=== PATIENT | male | born 1950 | race Caucasian/White ===

== ENCOUNTER 2019-11-23 11:00 | Outpatient (CLI) | payer MEDICARE, SELFPAY ==
--- NOTE | ~2019-11-23 | XR_ITS ---
EXAMINATION: XR hand LT min 3V DATE: 11/23/2019 11:21 INDICATION: Left hand injury. TECHNIQUE: 3 views of left hand were obtained. COMPARISON: None. FINDINGS: Bone alignment is normal. No fracture. There is mild osteoarthritis of triscaphe joint, fir st carpometacarpal joint, second metacarpophalangeal joints, and most of the interphalangeal joints. There is moderate osteoarthritis of third metacarpophalangeal joint, first interphalangeal joint, and second and third distal interphalangeal joints. IMPRESSION: 1. Polyarticular osteoarthritis. Reviewed, dictated and finalized at location A.
== END 2019-11-23 11:01 | disposition home or self-care (01) ==
LOC: ANHIMG 11:05
PROVIDERS: PCP Family Medicine; Visit Provider Family Medicine
DX: S69.92XA Unspecified injury of left wrist, hand and finger(s), initial encounter (principal); M19.042 Primary osteoarthritis, left hand
CPT/HCPCS: 73130

== ENCOUNTER 2020-01-15 10:37 | Emergency (ER) | payer MEDICARE, SELFPAY ==
--- NOTE | ~2020-01-15 | XR_ITS ---
EXAMINATION: XR lumbar spine min 4V EXAM DATE: 01/15/2020 11:15 INDICATION: Low back, right hip pain. Sciatica. TECHNIQUE: Lumber spine frontal, lateral, bilateral oblique projections. Coned down frontal and lat eral L5-S1 lumbar projections for interpretation. There is no prior study for comparison. FINDINGS: There is mild to moderate lumbar levoscoliosis. There is moderate to severe disc disease at L3-4, moderate at L4-5, mild to moderate at the other thoracolumbar levels. Mild diffuse loss of seth tebral body heights. The vertebral bodies are aligned in the AP dimension. Moderate lumbar facet arth ropathy. No spondylolysis suspected. Mild abdominal aortic arteriosclerosis. Anchors from anterior ab dominal wall mesh, hernia repair. IMPRESSION: 1. Mild to moderate lumbar levoscoliosis. 2. Overall moderate lumbar spondylosis. Reviewed, dictated and finalized at location B.
[2020-01-15 10:40] VITALS: BP 166/69; PULSE 101; RESP 19; TEMP 36.9; O2SAT 99
--- NOTE | 2020-01-15 10:45 | ED.GENADULT ---
HPI - General Adult General Chief complaint: Back Pain/Injury Stated complaint: THINK I HAVE A BULGING DISK Time Seen by Provider: 01/15/20 10:42 Source: patient Mode of arrival: ambulatory Limitations: no limitations History of Present Illness HPI narrative: 69-year-old male patient presents to the [facility] with complaints of right-sided low back pain that radiates to the right hip. Patient states he thinks it might be his sciatic nerve flaring up. Patient states he has had issues with this before. Patient states that about 20 years ago he did have back surgery due to a ruptured disc. Patient states that he had issues with his sciatic nerve about a year ago and did physical therapy and it did get better with time. Patient states that this time it started about a week to 10 days ago but has gotten increasingly worse the past couple of days. Patient states it did get increasingly worse after he stained his deck on . Patient states he does get relief when laying flat. Patient states he has been taking Tylenol for the pain. Patient states that the pain does radiate down to the middle of the anterior thigh but denies any numbness or tingling down bilateral legs. Patient denies any loss of bowel or bladder control. Patient denies any injury or fall recently. Related Data Allergies Allergy/AdvReac Type Severity Reaction Status Date / Time No Known Allergies Allergy Verified 01/15/20 10:46 Review of Systems Review of Systems: Narrative: CONSTITUTIONAL: Denies fever, chills, or sweats. EYES: Denies visual changes, redness, or discharge. ENT: Denies rhinorrhea, congestion, sore throat, or otalgia. CARDIOVASCULAR: Denies chest pain, palpitations, or edema. RESPIRATORY: Denies cough or dyspnea. GASTROINTESTINAL: Denies abdominal pain, nausea, vomiting, or diarrhea. GENITOURINARY: Denies dysuria or hematuria. SKIN: Denies rash or itching. MUSCULOSKELETAL: Positive right side of low back pain, denies joint pain, or myalgia. NEUROLOGIC: Denies headache, numbness, or weakness. PSYCHIATRIC: Denies anxiety or depression. [facility] Past Medical History Medical History (Updated 01/15/20 @ 11:55 by FABIOLA Pathak) Hypertension Type 2 diabetes mellitus Family History Family History Grandparent Diabetes mellitus Sibling Diabetes mellitus Mother Family history of malignant neoplasm Social History Social History Smoking status: Current every day smoker Second hand tobacco smoke exposure: Yes Alcohol intake: current Gender identity (if verbalized by the patient): Male Comments At the time of my signature I agree with nursing past medical history, surgical, social, and family history. There is no relevant family history pertinent to the presenting complaint. Exam Narrative: Exam Narrative: GENERAL: Well-appearing, well-nourished, and in no acute distress. HEAD: Normocephalic, atraumatic. EYES: PERRLA and EOMI. ENT: Nares clear, no rhinorrhea or epistaxis. Mucous membranes moist. NECK: Supple. No lymphadenopathy CHEST: Clear to auscultation. No respiratory distress. HEART: Regular rate and rhythm. No murmur heard. Normal peripheral pulses. ABDOMEN: Soft, nontender, nondistended, normal active bowel sounds. EXTREMITIES: Normal range of motion. No edema. BACK: Patient is able to ambulated without assistance. Pt is lying on the stretcher in no obvouis distress. No surface trauma noted. No muscle tenderness to Palpation. No spasm or mass. No step-offs or deformity noted to the cervical, thoracic or lumbar spine to firm Palpation at the midline. No CVA tenderness to percussion. No saddle anesthesia. Patient does have pain noted on palpation to the center of the right buttock. ROM: able to stand erect. Normal flexion, pain with extension, no pain with lateral bending and rotation to the left side but does have pain
[2020-01-15] MEDS: KETOROLAC (*BKC) 60 MG/2 ML VIAL IM (11:16)
[2020-01-15 11:41] LABS: Add Urine Microscopic? YES; Amorphous Sediment Urine Few; Appearance Urine Cloudy (Clear); Bilirubin Urine Negative (Negative); Blood Urine Negative (Negative); Color Urine Yellow (Yellow); Glucose Urine UA Negative (Negative); Ketones Urine Negative (Negative); Leukocyte Esterase Ur Negative LEU/UL (Negative); Mucus Urine Rare /lpf; Nitrate Urine Negative (Negative); Protein Urine 1+ mg/dL (Negative); RBC Urine 0-2 /hpf (0-2); Specific Grav Ur 1.016 (1.001-1.035); Urobilinogen Urine Negative mg/dL (<2.0)
[2020-01-15 11:41] LABS: Glucose 166 mg/dL (75-110)
== END 2020-01-15 12:08 | disposition home or self-care (01) ==
PROVIDERS: Emergency Provider Nurse Practitioner Family; PCP Family Medicine
DX: M54.41 Lumbago with sciatica, right side (principal); M54.16 Radiculopathy, lumbar region; I10 Essential (primary) hypertension; E11.9 Type 2 diabetes mellitus without complications; F17.200 Nicotine dependence, unspecified, uncomplicated; Z79.84 Long term (current) use of oral hypoglycemic drugs; Z79.82 Long term (current) use of aspirin
CPT/HCPCS: 36415; 72110; 81001; 82947; 96372; 99283; J1885

== ENCOUNTER 2021-07-16 10:30 | Outpatient (CLI) | payer MEDICARE, SELFPAY ==
--- NOTE | ~2021-07-16 | CT_ITS ---
EXAMINATION: CT abdomen pelvis wo/w con DATE: 07/16/2021 11:13 INDICATION: Gross hematuria TECHNIQUE: Computed tomography (CT) of the abdomen and pelvis was performed without and subsequently with 130 cc Omnipaque 350 intravenous contrast. Automated exposure control and iterative reconstructi on technique were employed. Exam dose: 2321.62 mGy-cm total exam DLP. COMPARISON: 07/16/2021 KUB 08/17/2019 bilateral renal ultrasound examination FINDINGS: The lung bases are clear of infiltrate or consolidation. Normal heart size. No pericardial or pleural effusion. Small sliding hiatal hernia. No hepatic space-occupying mass lesion. The gallbladder is unremarkable. No bile duct dilatation. No splenic or pancreatic mass lesion or pancreatic calcification or ductal dilatation. The adrenal glands are unremarkable. There are numerous cysts scattered throughout both kidneys, measuring up to 2.1 cm on the right and l eft. Multiple scattered bilateral nonobstructing renal calcifications are noted, largest measuring up to 1 0 mm on the left., 7 mm on the right. No ureteral calculus or hydroureteronephrosis. There is a 3.5 x 4.7 cm mass along the left posterolateral wall of the urinary bladder situated just anterior to the left ureterovesical junction, with peripheral calcification. This is very suspicious for urothelial malignancy. There is moderate diffuse bladder wall thickening otherwise. Prostate enlargement and calcifications. There is atherosclerotic calcification but normal caliber of the abdominal aorta and iliac and femora l arteries. No intraperitoneal or retroperitoneal or pelvic mass lesion or adenopathy or ascites. Small sliding hiatal hernia. Normal appendix. Mild colonic diverticulosis; no CT evidence of diverticulitis. Multilevel severe degenerative disc disease of the lumbar spine, particularly severe at L2-3, L3-4 an d L4-5. There is associated mild retrolisthesis at L4-5. There is prominent degenerative change at th e apophyseal joints as well. Degenerative changes of the lower thoracic spine. No suspicious osteolytic or osteoblastic lesions are noted. 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 Fuller telephoned the report on 07/16/2021 at 1137 hours to [place] at [phone]. Reviewed, dictated and finalized at Location A. Reviewed, dictated and finalized at location B. 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 Fuller telephoned the report on 07/16/2021 at 1137 hours to [place] at [phone].
--- NOTE | ~2021-07-16 | XR_ITS ---
XR abdomen/kub 1V 07/16/2021 10:44 Indication: Gross hematuria Procedure: KUB Comparison: Ultrasound dated 08/17/2019 Findings: There are multiple bilateral renal stones, largest in the left kidney measuring [address] dimension. Bowel gas pattern nonobstructive. There are are surgical changes consistent with ventra l hernia repair. There is advanced lumbar spondylosis with levoscoliosis. There are coarse prostate c alcifications. There are curvilinear calcifications in the left pelvis of uncertain etiology. Correla te with CT. Impression: 1: Bilateral nephrolithiasis. Reviewed, dictated and finalized at location A. [employer] OFFICE DISPATCHER Impression: 1: Bilateral nephrolithiasis.
[2021-07-16 10:58] LABS: Estimated Glomerular Filt Rate > 60
== END 2021-07-16 10:31 | disposition home or self-care (01) ==
LOC: ANHIMG 10:34
PROVIDERS: PCP Family Medicine; Visit Provider Nurse Practitioner Adult Health
DX: R31.0 Gross hematuria (principal); K44.9 Diaphragmatic hernia without obstruction or gangrene; N20.0 Calculus of kidney; N40.0 Benign prostatic hyperplasia without lower urinary tract symptoms; K57.30 Diverticulosis of large intestine without perforation or abscess without bleeding; K76.9 Liver disease, unspecified; M47.816 Spondylosis without myelopathy or radiculopathy, lumbar region; M41.9 Scoliosis, unspecified
CPT/HCPCS: 74018; 74178; Q9967

== ENCOUNTER 2021-08-01 02:10 | Day surgery (SDC) | payer MEDICARE, SELFPAY ==
[2021-07-14 13:28] VITALS: BMI 31.3
--- NOTE | 2021-08-01 08:03 | WPDANESEPPF ---
Anes - Initial Pre Proc Eval Procedure: Operation Date: 08/01/21 10:45 Proposed Procedures p Screening Colonoscopy - Freddy Molina MD Date/Time: 08/01/21 08:03 Surgeon: Freddy Molina MD Pre Op Diagnosis: neoplasm screening Patient Data Age: 70 Gender: M Height: 1.78 m Weight: 99 kg Allergies Allergy/AdvReac Type Severity Reaction Status Date / Time No Known Allergies Allergy Verified 08/01/21 09:42 Home Medications Medication Instructions Recorded Confirmed Type aspirin 325 mg tablet 325 mg PO DAILY #1 tablet 05/31/19 08/01/21 Rx blood sugar diagnostic #10 each 05/31/19 08/01/21 Rx magnesium 250 mg tablet 250 mg PO DAILY #1 tablet 05/31/19 08/01/21 Rx acetaminophen 1,000 mg PO Q6H PRN #60 cap 01/15/20 08/01/21 Rx blood sugar diagnostic #100 each 02/21/20 08/01/21 Rx sildenafil 100 mg tablet 100 mg PO DAILY PRN #10 tablet 05/01/21 08/01/21 Rx amlodipine 10 mg tablet 10 mg PO DAILY #90 tablet 06/13/21 08/01/21 Rx atorvastatin 80 mg tablet See Rx Instructions .ROUTE 06/13/21 08/01/21 Rx .COMPLEX #90 tablet ezetimibe 10 mg tablet See Rx Instructions .ROUTE 06/13/21 08/01/21 Rx .COMPLEX #90 tablet glimepiride 2 mg tablet See Rx Instructions .ROUTE 06/13/21 08/01/21 Rx .COMPLEX #90 tablet lisinopril 40 mg tablet 40 mg PO DAILY #90 tablet 06/13/21 08/01/21 Rx metformin 500 mg tablet,extended See Rx Instructions .ROUTE 06/13/21 08/01/21 Rx release 24 hr .COMPLEX #180 tablet topiramate 50 mg tablet 50 mg PO BID #180 tablet 06/13/21 08/01/21 Rx Patient hx anesthesia problems: none Family hx anesthesia problems: none Results Review: All pre-operative results and documents have been reviewed as part of the pre-operative evaluation. [facility] Past Medical History Medical History (Updated 08/01/21 @ 08:04 by Angel Zavala DO) Hyperlipidemia LDL goal <70 Hypertension RICHARD (obstructive sleep apnea) PTSD (post-traumatic stress disorder) Type 2 diabetes mellitus Family History Family History Grandparent Diabetes mellitus Sibling Diabetes mellitus Mother Family history of malignant neoplasm Social History Social History Smoking packs per day: 1 Smoking cigarettes per day: 20.0 Years smoked: 40 Smoking pack-years: 40.00 Smoking status: Current every day smoker Tobacco type: cigarettes Second hand tobacco smoke exposure: Yes Alcohol intake: current Drinks per week: 2 Alcohol use details: rare Substance use: current Substance use type: marijuana Other substance usage details: 1-2 times per month Living arrangements: with family Gender identity (if verbalized by the patient): Male Spiritual care concerns: No Anes - Eval Final PreProcedure Day of Procedure 08/01/21 08:03 Patient weight: obese Heart: regular rate and rhythm Lungs: clear to auscultation and normal air movement Airway: Mallampati scale class II Neurological: alert and oriented Last oral intake: >/= 8 hours ASA classification: III Emergent: no Anesthetic plan: proceed Anesthesia type and monitoring: general GIVS and standard monitoring Results Review: All pre-operative results and documents have been reviewed as part of the pre-operative evaluation. Informed Consent: The patient's anesthetic plan and its attendant risks and benefits were discussed with the patient/family/POA. Questions were solicited and answers provided to the satisfaction of the patient/family/POA.
[2021-08-01 09:46] VITALS: BP 161/93; PULSE 75; RESP 20; TEMP 36.2; O2SAT 97; BMI 31.1
[2021-08-01] MEDS: LACTATED RINGERS 1,000 ML 150 ML IV CONT (09:48)
[2021-08-01 10:00] LABS: Glucose Point of Care 179 mg/dl (65-105)
--- NOTE | 2021-08-01 10:15 | PM.HPGS ---
History of Present Illness History of Present Illness Consent: Risks, benefits, and alternatives have been discussed and questions answered. Patient agrees to proceed with procedure. Chief complaint: neoplasm screening Narrative: Francis Jain is a 70 year old male here for screening colonoscopy, last one over 10 years ago. Review of Systems Constitutional: Constitutional: Denies headache(s) and Denies weakness Eyes: Eyes: Denies blurry vision ENT: Reports Normal hearing present, Denies headache(s) and Denies neck pain Cardiovascular: Cardiovascular: Denies chest pain and Denies dyspnea Respiratory: Respiratory: Denies dyspnea Gastrointestinal: Gastrointestinal: Reports no additional gastrointestinal complaints Genitourinary: Genitourinary: Denies dysuria Musculoskeletal: Musculoskeletal: Denies neck pain Integumentary/Breasts: Skin/Breast: Denies dry skin Neurologic: Reports Normal hearing present, Denies headache(s) and Denies weakness Psychiatric: Psychiatric: Denies anxiety Endocrine: Endocrine: Denies change in body appearance Hematologic/Lymphatic: Hematologic/Lymphatic: Denies easy bleeding Allergic/Immunologic: Allergic/Immunologic: Denies urticaria [facility] Past Medical History Medical History (Updated 08/01/21 @ 08:04 by Angel Zavala DO) Hyperlipidemia LDL goal <70 Hypertension RICHARD (obstructive sleep apnea) PTSD (post-traumatic stress disorder) Type 2 diabetes mellitus Family History Family History Grandparent Diabetes mellitus Sibling Diabetes mellitus Mother Family history of malignant neoplasm Social History Social History Smoking packs per day: 1 Smoking cigarettes per day: 20.0 Years smoked: 40 Smoking pack-years: 40.00 Smoking status: Current every day smoker Tobacco type: cigarettes Second hand tobacco smoke exposure: Yes Alcohol intake: current Drinks per week: 2 Alcohol use details: rare Substance use: current Substance use type: marijuana Other substance usage details: 1-2 times per month Living arrangements: with family Gender identity (if verbalized by the patient): Male Spiritual care concerns: No Meds Home Medications and Allergies Home Medications Medication Instructions Recorded Confirmed Type aspirin 325 mg tablet 325 mg PO DAILY #1 tablet 05/31/19 08/01/21 Rx blood sugar diagnostic #10 each 05/31/19 08/01/21 Rx magnesium 250 mg tablet 250 mg PO DAILY #1 tablet 05/31/19 08/01/21 Rx acetaminophen 1,000 mg PO Q6H PRN #60 cap 01/15/20 08/01/21 Rx blood sugar diagnostic #100 each 02/21/20 08/01/21 Rx sildenafil 100 mg tablet 100 mg PO DAILY PRN #10 tablet 05/01/21 08/01/21 Rx amlodipine 10 mg tablet 10 mg PO DAILY #90 tablet 06/13/21 08/01/21 Rx atorvastatin 80 mg tablet See Rx Instructions .ROUTE 06/13/21 08/01/21 Rx .COMPLEX #90 tablet ezetimibe 10 mg tablet See Rx Instructions .ROUTE 06/13/21 08/01/21 Rx .COMPLEX #90 tablet glimepiride 2 mg tablet See Rx Instructions .ROUTE 06/13/21 08/01/21 Rx .COMPLEX #90 tablet lisinopril 40 mg tablet 40 mg PO DAILY #90 tablet 06/13/21 08/01/21 Rx metformin 500 mg tablet,extended See Rx Instructions .ROUTE 06/13/21 08/01/21 Rx release 24 hr .COMPLEX #180 tablet topiramate 50 mg tablet 50 mg PO BID #180 tablet 06/13/21 08/01/21 Rx Allergies Allergy/AdvReac Type Severity Reaction Status Date / Time No Known Allergies Allergy Verified 08/01/21 09:42 Vital Signs Vital Signs - 24 hr 08/01/21 09:46 Temperature 97.2 F L Pulse Rate 75 Respiratory Rate 20 Blood Pressure 161/93 H Pulse Oximetry 97 Exam Const: General: comfortable and no acute distress HENMT: General nose exam: Normal nares present Eyes: General: appearance normal, both eyes and all related structures Neck: Neck: no JVD Resp: Auscultation: clear to ausculta
[2021-08-01 10:42] VITALS: BP 109/64; PULSE 63; RESP 13; O2SAT 97
[2021-08-01 10:52] VITALS: BP 118/68; PULSE 57; RESP 21; O2SAT 97
[2021-08-01 11:02] VITALS: BP 121/75; PULSE 55; RESP 12; O2SAT 97
== END 2021-08-01 11:14 | disposition home or self-care (01) ==
PROVIDERS: PCP Family Medicine; Visit Provider Internal Medicine Gastroenterology
PROC: 0DJD8ZZ Inspection of Lower Intestinal Tract, Via Natural or Artificial Opening Endoscopic (ICD-10-PCS; CPT 45378; principal; 2021-08-01 10:45)
DX: Z12.11 Encounter for screening for malignant neoplasm of colon (principal); K63.5 Polyp of colon; K57.30 Diverticulosis of large intestine without perforation or abscess without bleeding; K64.8 Other hemorrhoids; I10 Essential (primary) hypertension; E78.5 Hyperlipidemia, unspecified; G47.33 Obstructive sleep apnea (adult) (pediatric); F43.10 Post-traumatic stress disorder, unspecified; E11.9 Type 2 diabetes mellitus without complications; F17.210 Nicotine dependence, cigarettes, uncomplicated; F12.90 Cannabis use, unspecified, uncomplicated; Z79.82 Long term (current) use of aspirin; Z79.84 Long term (current) use of oral hypoglycemic drugs; E66.9 Obesity, unspecified; Z68.31 Body mass index [BMI] 31.0-31.9, adult
CPT/HCPCS: 45385; 82948; 88305; J2704; J7120

== ENCOUNTER 2021-08-11 10:17 | Outpatient (CLI) | payer MEDICARE, SELFPAY ==
--- NOTE | 2021-08-11 | ECG_ITS ---
Measurements Intervals [place] Rate: 73 P: 61 OK: 177 QRS: -21 QRSD: 90 T: 62 QT: 383 QTc: 425 Interpretive Statements SINUS RHYTHM BORDERLINE R WAVE PROGRESSION, ANTERIOR LEADS INFERIOR INFARCT, AGE INDETERMINATE BASELINE ARTIFACT- I, III, AVR, AVL ABNORMAL ECG Electronically Signed On 08-11-2021 10:56:00 [employer]IP[employer]S [employer] by Sav Solano D.O.
[2021-08-11 11:05] LABS: Anion Gap 13 mmol/L (8-16); Blood Urea Nitrogen 21 mg/dL (9-20); Calcium 9.5 mg/dL (8.4-10.2); Carbon Dioxide 21 mmol/L (22-30); Chloride 109 mmol/L (98-107); Estimated Glomerular Filt Rate > 60; Glucose 157 mg/dL (65-110); Potassium 4.2 mmol/L (3.4-5.0); Sodium 143 mmol/L (137-145)
== END 2021-08-11 10:18 | disposition home or self-care (01) ==
LOC: ANHSURGERY 10:20
PROVIDERS: Anesthesiology; PCP Family Medicine; Visit Provider Urology
DX: E11.9 Type 2 diabetes mellitus without complications (principal); I10 Essential (primary) hypertension; Z01.818 Encounter for other preprocedural examination; R94.31 Abnormal electrocardiogram [ECG] [EKG]
CPT/HCPCS: 36415; 80048; 93005

== ENCOUNTER 2021-08-14 01:38 | Day surgery (SDC) | payer MEDICARE, SELFPAY ==
--- NOTE | 2021-08-11 09:31 | PC.NURSE ---
Report to the Outpatient Waiting Room, entrance under the green pavilion located off [facility], at time _0715_ on date _08/14/21__. OR Time: _0915__. - You and your visitor will be asked a series of questions to screen for COVID 19 for your protection. - A mask is required within the hospital. - NO visitors are allowed at this time. Patient visitors will be guided where to wait when not with patient. Preoperative COVID Testing Requirements: No COVID Test needed if: (proof is required; if not received patient will have Rapid Test prior to entry) - Patient has received COVID Vaccine at least 14 days prior to procedure date or - Patient has positive COVID test result within last 90 days of surgery date. COVID Test needed if above criteria is not met If not COVID vaccinated a COVID test must be conducted within 72 hours of surgery and patient is asked to isolate self from time of testing until procedure. You will go to the [facility] for your COVID testing. The [facility] is located at the corner of [address] [facility]. You will only be called if COVID results are positive and your surgeon may reschedule your elective surgery date. Patients may have clear liquids (water, carbonated beverages, clear teas, apple juice) until 3 hours prior to surgery with a maximum of 20 ounces. (0615 AM) - No food from midnight until time of surgery - Infants may have breast milk until 4 hours before surgery, formula 6 hours prior to surgery. - Children will be allowed to drink immediately following surgery. If applicable, please bring a bottle or sippy cup to assist with drinking. Juice, water, soda, and popsicles are readily available. For infants on formula, please bring formula the day of surgery. Pacifiers are allowed. Take the following medications with a SIP of water the morning of surgery: _AMLODIPINE, & TYLENOL IF NEEDED__ Medications to discontinue per DR. ALCOCER - _ASPIRIN - PT STOPPED 08/07/21__ Medications to discontinue per ANESTHESIA - ALL VITAMINS/SUPPLEMENTS - Date to take last dose_08/11/21___ Please no make-up, nail zimbabwean, hairspray, perfume, deodorant, or body powder the day of surgery. No jewelry (including any body piercings) or valuables the day of surgery, leave them at home. Please take a shower or bath the night before, or the morning of, surgery with an antibacterial soap. Wear comfortable, loose fitting clothing. Children are encouraged to wear pajamas. - Jewelry must be removed prior to entering the operating room. Rings and piercings that are not removed may be cut off. - The hospital will not accept responsibility for valuables. - Please leave all valuables, including medications, at home the day of surgery. If you are going home after surgery, a licensed seasonal driver must drive you home. - NO public transportation without another adult. - We recommend that an adult stay with you for 24 hours following discharge. - We also recommend that you do not drive, make important decision, drink alcoholic beverages, or take any drugs that were not prescribed by your health care provider for at least 24 hours after your discharge time. For Pediatric surgeries, we recommend two adults accompany the child home (only one inside the building at this time). Follow any additional instructions given to you from your surgeon. Telephone instructions given to ___PT and asked if any additional questions and then verbalized understanding. Patient advised to call surgeon office or pre surgery nurse liaison [phone] if any additional questions.
[2021-08-11 09:35] VITALS: BMI 31.1
[2021-08-14] VITALS (10 sets, daily range): BP systolic 120–173; BP diastolic 66–92; PULSE 70–96; RESP 16–20; TEMP 36.3–36.6; O2SAT 95–100
--- NOTE | 2021-08-14 07:01 | WPDHPUPDATE1 ---
History and Physical Update Update Date/Time: 08/14/21 07:01 History and Physical has been reviewed, including an updated exam of the patient. There are NO changes in the patient's condition. Risks, benefits, and alternatives have been discussed and questions answered. Patient agrees to proceed with procedure.
[2021-08-14] MEDS: LACTATED RINGERS 1,000 ML 30 ML IV CONT ×2 (08:03→11:15)
[2021-08-14 08:04] LABS: Glucose Point of Care 165 mg/dl (65-105)
--- NOTE | 2021-08-14 08:32 | WPDANESEPPF ---
Anes - Initial Pre Proc Eval Procedure: Operation Date: 08/14/21 09:15 Proposed Procedures p Trans Urethral Resection Large Bladder Tumor with Gemcitabine Instillation - August Bryan MD s Cystoscopy - August Bryan MD Date/Time: 08/14/21 08:32 Surgeon: August Bryan MD Pre Op Diagnosis: Gross Hematuria Patient Data Age: 70 Gender: M Height: 1.78 m Weight: 98.5 kg Last Vital Signs Temp 36.6 C 08/14/21 08:06 Pulse 72 08/14/21 08:06 Resp 20 08/14/21 08:06 BP 126/74 08/14/21 08:06 Pulse Ox 97 08/14/21 08:06 Allergies Allergy/AdvReac Type Severity Reaction Status Date / Time No Known Allergies Allergy Verified 08/14/21 07:45 Home Medications Medication Instructions Recorded Confirmed Type aspirin 325 mg tablet 325 mg PO DAILY #1 tablet 05/31/19 08/14/21 Rx blood sugar diagnostic #10 each 05/31/19 08/14/21 Rx magnesium 250 mg tablet 250 mg PO DAILY #1 tablet 05/31/19 08/14/21 Rx acetaminophen 1,000 mg PO Q6H PRN #60 cap 01/15/20 08/14/21 Rx blood sugar diagnostic #100 each 02/21/20 08/14/21 Rx sildenafil 100 mg tablet 100 mg PO DAILY PRN #10 tablet 05/01/21 08/14/21 Rx amlodipine 10 mg tablet 10 mg PO DAILY #90 tablet 06/13/21 08/14/21 Rx atorvastatin 80 mg tablet See Rx Instructions .ROUTE 06/13/21 08/14/21 Rx .COMPLEX #90 tablet ezetimibe 10 mg tablet See Rx Instructions .ROUTE 06/13/21 08/14/21 Rx .COMPLEX #90 tablet glimepiride 2 mg tablet See Rx Instructions .ROUTE 06/13/21 08/14/21 Rx .COMPLEX #90 tablet lisinopril 40 mg tablet 40 mg PO DAILY #90 tablet 06/13/21 08/14/21 Rx metformin 500 mg tablet,extended See Rx Instructions .ROUTE 06/13/21 08/14/21 Rx release 24 hr .COMPLEX #180 tablet topiramate 50 mg tablet 50 mg PO BID #180 tablet 06/13/21 08/14/21 Rx Laboratory Tests 08/14/21 08:02 POC Capillary Glucose 165 mg/dl H mg/dl (65-105) Patient hx anesthesia problems: none Family hx anesthesia problems: none Results Review: All pre-operative results and documents have been reviewed as part of the pre-operative evaluation. [facility] Past Medical History Medical History (Updated 08/01/21 @ 08:04 by Angel Zavala DO) Hyperlipidemia LDL goal <70 Hypertension RICHARD (obstructive sleep apnea) PTSD (post-traumatic stress disorder) Type 2 diabetes mellitus Family History Family History (Reviewed 06/13/21 @ 10:21 by Jordyn Hollis [facility]) Grandparent Diabetes mellitus Sibling Diabetes mellitus Mother Family history of malignant neoplasm Social History Social History (Reviewed 06/13/21 @ 10:21 by Jordyn Hollis [facility]) Smoking packs per day: 1 Smoking cigarettes per day: 20.0 Years smoked: 40 Smoking pack-years: 40.00 Smoking status: Current every day smoker Tobacco type: cigarettes Second hand tobacco smoke exposure: Yes Alcohol intake: current Drinks per week: 2 Alcohol use details: rare Substance use: current Substance use type: marijuana Other substance usage details: 1-2 times per month Living arrangements: with family Gender identity (if verbalized by the patient): Male Spiritual care concerns: No Anes - Eval Final PreProcedure Day of Procedure 08/14/21 08:32 Patient weight: obese Heart: regular rate and rhythm Lungs: clear to auscultation and normal air movement Airway: Mallampati scale class II Neurological: alert and oriented Last oral intake: >/= 8 hours ASA classification: III Emergent: no Anesthetic plan: proceed Anesthesia type and monitoring: general LMA Results Review: All pre-operative results and documents have been reviewed as part of the pre-operative evaluation. Informed Consent: The patient's anesthetic plan and its attendant risks and benefits were discussed with the patient/family/POA. Questions were solicited and answers provided to the satisfaction of the patient/family/POA.
[2021-08-14] MEDS: ceFAZolin 2 GM/D5W 50 ML 2 GM/50 ML BAG IVPB (09:25)
--- NOTE | 2021-08-14 10:46 | W.PM.PROC2 ---
Procedure Note - Detailed Date of Procedure 08/14/21 Pre-op Diagnosis Bladder cancer Post-op Diagnosis same Procedure Performed 1. TURBT ( large, 78 cm) 2. Bladder biopsy Surgeon August Bryan MD Anesthesia general Findings Large neoplasm involving the left posterior lateral bladder wall just above the left ureteral orifice Description of Procedure Patient brought out suite was prepped draped in routine sterile fashion while in dorsal lithotomy position after the uneventful induction of a general anesthetic. A 24 F resectoscope was placed in the bladder. His large neoplasm in the left posterior lateral bladder wall. Resected in its entirety. I took separate specimens from the bladder tumor base to look for evidence of pathological muscle invasion. Base periphery were cauterized. This neoplasm arose just above left ureteral orifice. I was able to identify and preserve the left ureteral orifice throughout. Some slight hyperemia in the dome so I took a separate biopsy from that site cauterized the bases well. Resectoscope was removed after evacuating all chips. An 18F urethral catheter was placed to drainage. Estimated Blood Loss 10 Drains Yes Packing No Pathology yes Complications No immediate complications Condition stable Disposition PACU
--- NOTE | 2021-08-14 10:49 | W.PM.PROC2 ---
Procedure Note - Detailed Date of Procedure 08/14/21 Pre-op Diagnosis Bladder cancer Post-op Diagnosis same Procedure Performed Gemcitabine installation Surgeon August Bryan MD Anesthesia none Description of Procedure With the patient in the supine position, a 16F Peters catheter is placed using sterile technique. Using a protective facemask, gown and double layer of gloves Gemcitabine 2gm in 100cc saline is administered through the catheter/into the bladder. The catheter is then plugged. Patient was instructed to lie supine x20min, then to roll both the left and right x20 min. each. Total dwell time will be 60 min., after which the bladder will be drained and catheter removed. Estimated Blood Loss 10 Drains Yes Packing No Pathology none sent Complications No immediate complications Condition stable Disposition PACU
[2021-08-14] MEDS: SODIUM CHLORIDE 0.9% IV 23.7 ML, GEMCITABINE HCL 1,000 MG BLADDER ×2 (10:57→10:58)
--- NOTE | 2021-08-14 11:06 | SUR.PHASEI ---
1055; DR ALCOCER IN PACU, INSTILLED GEMCITABINE AND HE CLAMPED DANIEL. PT LAYING ON BACK FOR 20 MIN
[2021-08-14 11:26] LABS: Glucose Point of Care 151 mg/dl (65-105)
--- NOTE | 2021-08-14 11:28 | SUR.PHASEI ---
1121; PT TURNED ONTO LT SIDE FOR 20MIN. C/O URGE TO VOID. DENIES PAIN. DANIEL REMAINS CLAMPED
--- NOTE | 2021-08-14 11:44 | SUR.PHASEI ---
1140; TURNED TO RT SIDE FOR 20MIN
--- NOTE | 2021-08-14 11:46 | SUR.PHASEI ---
REPORT GIVEN TO JOY RIOS
== END 2021-08-14 13:10 | disposition home or self-care (01) ==
PROVIDERS: PCP Family Medicine; Visit Provider Urology
PROC: 0TBB8ZZ Excision of Bladder, Via Natural or Artificial Opening Endoscopic (ICD-10-PCS; CPT 52240; principal; 2021-08-14 09:15)
PROC: 0TBB8ZX Excision of Bladder, Via Natural or Artificial Opening Endoscopic, Diagnostic (ICD-10-PCS; CPT 52204; 2021-08-14 09:15)
DX: C67.8 Malignant neoplasm of overlapping sites of bladder (principal); N30.21 Other chronic cystitis with hematuria; E78.5 Hyperlipidemia, unspecified; I10 Essential (primary) hypertension; E11.9 Type 2 diabetes mellitus without complications; G47.33 Obstructive sleep apnea (adult) (pediatric); F43.10 Post-traumatic stress disorder, unspecified; F17.210 Nicotine dependence, cigarettes, uncomplicated; F12.90 Cannabis use, unspecified, uncomplicated; E66.9 Obesity, unspecified; Z68.31 Body mass index [BMI] 31.0-31.9, adult; Z79.84 Long term (current) use of oral hypoglycemic drugs; Z79.82 Long term (current) use of aspirin
CPT/HCPCS: 52240; 51720; 82948; 88305; A9270; J0690; J1100; J2405; J2704; J3010; J7120; J9201

== ENCOUNTER 2022-06-30 14:46 | Outpatient (CLI) | payer MEDICARE, SELFPAY ==
--- NOTE | ~2022-06-30 | CT_ITS ---
EXAMINATION: CT brain wo con DATE: 06/30/2022 15:03 INDICATION: Migraines. Headache. TECHNIQUE: Computed tomography (CT) of the head was performed without intravenous contrast. The dose- length product was 605.33 mGy-cm. Automated exposure control and iterative reconstruction technique w ere employed. COMPARISON: No prior studies for comparison. FINDINGS: There is a small chronic right frontal lobe infarction. No ventriculomegaly or midline shif t. No acute infarction, hemorrhage, mass or mass effect. Basilar cisterns are patent. There is intrac ranial atherosclerosis. Paranasal sinuses and mastoids are pneumatized. No depressed skull fractures. IMPRESSION: 1. No acute intracranial abnormality. 2: Chronic right frontal lobe infarction. Reviewed, dictated and finalized at location A. RMATION SYSTEMS DIRECTOR
--- NOTE | ~2022-06-30 | XR_ITS ---
XR cervical spine 4-5V DATE: 06/30/2022 15:08 INDICATION: Right neck pain, tenderness. Migraine headache. TECHNIQUE: AP, open-mouth, lateral and swimmer views COMPARISON: None FINDINGS: There is diffuse osteopenia. There is mild levoscoliosis of cervical and upper thoracic spine. C1 and C2 are normally aligned and the odontoid process is intact. No fracture or dislocation or lock ed facet is detected. No prevertebral soft tissue swelling. Degenerative disc disease is suggested at C6-7. Remaining cervical interspaces are relatively preserv ed. IMPRESSION: Osteopenia Mild cervical-thoracic levoscoliosis Degenerative disc disease at C6-7 Reviewed, dictated and finalized at location B. ICAL SCIENCES PROFESSOR
== END 2022-06-30 14:47 | disposition home or self-care (01) ==
PROVIDERS: PCP Family Medicine; Visit Provider Physician Assistant
DX: G43.909 Migraine, unspecified, not intractable, without status migrainosus (principal); M85.88 Other specified disorders of bone density and structure, other site; M41.9 Scoliosis, unspecified; M50.323 Other cervical disc degeneration at C6-C7 level
CPT/HCPCS: 70450; 72050

== ENCOUNTER 2023-03-08 09:46 | Outpatient (CLI) | payer MEDICARE, SELFPAY ==
[2023-03-08 10:09] LABS: Basophils Absolute Auto 0.1 K/mm3 (0.0-0.1); Basophils Percent Auto 1.2 % (0.2-1.2); Eosinophils Absolute Auto 0.3 K/mm3 (0-0.3); Eosinophils Percent Auto 4.1 % (0-4.4); Hematocrit 47.8 % (42.0-52.0); Hemoglobin 16.2 g/dL (14.0-18.0); Immature Granulocyte Absolute 0.02 K/mm3 (0.00-0.031); Immature Granulocyte Percent A 0.3 % (0-0.5); Lymphocytes Absolute Auto 2.01 K/mm3 (0.9-3.2); Lymphocytes Percent Auto 25.8 % (18.3-44.2); Mean Corpuscular HGB Conc 33.9 g/dl (32-36); Mean Corpuscular Hemoglobin 30.6 pg (26-34); Mean Corpuscular Volume 90.2 fl (80-100); Mean Platelet Volume 8.6 fl (7.4-10.4); Monocytes Absolute Auto 0.4 K/mm3 (0.1-0.6); Monocytes Percent Auto 5.5 % (2.6-8.5); Neutrophils Absolute Auto 4.9 K/mm3 (1.3-6.7); Neutrophils Percent Auto 63.1 % (45.5-73.1); Platelet Count Result 164 k/mm3 (150-375); Red Cell Distribution Width 13.6 % (11.5-14.5); White Blood Count 7.8 K/mm3 (4.5-10.0)
[2023-03-08 10:15] LABS: Blood Urea Nitrogen 17 mg/dL (8-26); Carbon Dioxide 21 mmol/L (22-30); Chloride 107 mmol/L (98-109); Estimated Glomerular Filt Rate > 60; Glucose 133 mg/dL (70-105); Ionized Calcium (POC) 1.21 mmol/L (1.11-1.31); Potassium 3.7 mmol/L (3.5-4.9); Sodium 144 mmol/L (138-146)
[2023-03-08 10:33] LABS: Alanine Aminotransferase 28 U/L (6-50); Albumin Level 4.5 g/dL (3.5-5.1); Alkaline Phosphatase 88 U/L (38-126); Anion Gap 10 mmol/L (8-16); Aspartate Amino Transferase 33 U/L (17-59); Bilirubin,Total 0.6 mg/dL (0.2-1.3); Blood Urea Nitrogen 16 mg/dL (9-20); Calcium 9.1 mg/dL (8.4-10.2); Carbon Dioxide 23 mmol/L (22-30); Chloride 109 mmol/L (98-107); Estimated Glomerular Filt Rate > 60; Glucose 133 mg/dL (65-110); Potassium 3.7 mmol/L (3.4-5.0); Sodium 142 mmol/L (137-145)
== END 2023-03-08 09:47 | disposition home or self-care (01) ==
LOC: ANHLAB 09:50
PROVIDERS: PCP Family Medicine; Visit Provider Internal Medicine Hematology & Oncology
DX: D47.2 Monoclonal gammopathy (principal)
CPT/HCPCS: 36415; 80047; 80053; 85025

== ENCOUNTER 2023-05-24 08:23 | Outpatient (CLI) | payer MEDICARE, SELFPAY ==
--- NOTE | 2023-05-24 08:35 | ECG_ITS ---
Measurements Intervals [place] Rate: 53 P: 61 WI: 181 QRS: -28 QRSD: 106 T: 46 QT: 421 QTc: 397 Interpretive Statements SINUS BRADYCARDIA WITH MARKED SINUS ARRHYTHMIA BORDERLINE LEFT AXIS DEVIATION [QRS AXIS < -20] INFERIOR INFARCTION ABNORMAL ECG COMPARED TO ECG 08/11/2021 10:41:30 SINUS BRADYCARDIA NOW PRESENT SINUS ARRHYTHMIA NOW PRESENT Electronically Signed On 05-24-2023 8:52:47 CDT by Dorian Christopher M.D.
== END 2023-05-24 08:24 | disposition home or self-care (01) ==
PROVIDERS: PCP Family Medicine; Visit Provider Urology
DX: I10 Essential (primary) hypertension (principal); Z01.818 Encounter for other preprocedural examination; R94.31 Abnormal electrocardiogram [ECG] [EKG]
CPT/HCPCS: 93005

== ENCOUNTER 2023-05-27 02:05 | Day surgery (SDC) | payer MEDICARE, SELFPAY ==
[2023-05-21 11:22] VITALS: BMI 31.6
--- NOTE | 2023-05-21 11:24 | PC.NURSE ---
Report to the Outpatient Waiting Room, entrance under the green pavilion located off [facility], at time ___0815____ on date _05/27/23 . Planned Procedure Time: _1015 . Time changes happen often and if your time is changed the preop area will call you the afternoon before. - You and your visitor will be asked to self-screen and do not enter if you have any COVID symptoms. - A mask is optional within the hospital at this time. Patients may have clear liquids (water, carbonated beverages, clear teas, apple juice) until 3 hours prior to surgery with a maximum of 20 ounces. - No food from midnight until time of surgery - Infants may have breast milk until 4 hours before surgery, formula 6 hours prior to surgery. - Children will be allowed to drink immediately following surgery. If applicable, please bring a bottle or sippy cup to assist with drinking. Juice, water, soda, and popsicles are readily available. For infants on formula, please bring formula the day of surgery. Pacifiers are allowed. Take the following medications with a SIP of water the morning of surgery: ___NONE DO NOT STOP ANY OF YOUR OTHER PRESCRIPTION MEDICATIONS PRIOR TO SURGERY ?EXCEPT THE FOLLOWING Medications to discontinue per physician ___ALL VITAMINS AND SUPPLEMENTS 3 DAYS PRE OP.LAST DOSE 05/23/23 Please no make-up, nail indian, hairspray, perfume, deodorant, or body powder the day of surgery. No jewelry (including any body piercings) or valuables the day of surgery, leave them at home. Please take a shower or bath the night before, or the morning of, surgery with an antibacterial soap. Wear comfortable, loose fitting clothing. Children are encouraged to wear pajamas. - Jewelry must be removed prior to entering the operating room. Rings and piercings that are not removed may be cut off. - The hospital will not accept responsibility for valuables. - Please leave all valuables, including medications, at home the day of surgery. If you are going home after surgery, a licensed chair car driver must drive you home. - NO public transportation without another adult if you receive anesthesia. - We recommend that an adult stay with you for 24 hours following discharge. - We also recommend that you do not drive, make important decision, drink alcoholic beverages, or take any drugs that were not prescribed by your health care provider for at least 24 hours after your discharge time. For Pediatric surgeries, we recommend two adults accompany the child home. Follow any additional instructions given to you from your surgeon. If you or anyone in your household have experienced Covid symptoms in the past week, please notify your surgeon or the nurse liaison at the phone number below for possible testing. Telephone instructions given to ___PATIENT and asked if any additional questions and then verbalized understanding. Patient advised to call surgeon office or pre surgery nurse liaison [phone] if any additional questions.
[2023-05-27] VITALS (9 sets, daily range): BP systolic 116–142; BP diastolic 47–79; PULSE 58–75; RESP 12–20; TEMP 36.2; O2SAT 94–100
--- NOTE | ~2023-05-27 | XR_ITS ---
EXAMINATION: XR retrograde pyelogram BI DATE: 05/27/2023 10:24 INDICATION: Bilateral retrograde pyelograms TECHNIQUE: A total of 84 fluoroscopic images of the abdomen and pelvis were obtained during procedure performed by Dr. Bryan. Radiologist was not present for the imaging or procedure. The amount of flu oroscopy time used during this procedure was 0.4 minutes. COMPARISON: CT abdomen and pelvis dated 07/16/2021 FINDINGS: Radius Grinder images demonstrate multiple metallic coils for a prior ventral hernia mesh repair projecting ov er the central lower abdomen. Again seen is a large renal stone projecting over a middle pole calyx o f the left kidney. There is a smaller stone in an inferior calyx of the left kidney. Subsequent image s demonstrate cannulation and retrograde contrast injection into first the left ureter and renal rashi ecting system and subsequently the right ureter and renal collecting system both of which appeared no rmal in caliber with no hydronephrosis. No strictures or urothelial irregularities identified. IMPRESSION: 1. Left nephrolithiasis. 2. Normal bilateral retrograde pyelograms with no hydronephrosis, strictures or urothelial irregulari ties. See procedure note for further detail. Reviewed, dictated and finalized at location A. IMPRESSION: 1. Left nephrolithiasis. 2. Normal bilateral retrograde pyelograms with no hydronephrosis, strictures or urothelial irregularities. See procedure note for further detail.
--- NOTE | 2023-05-27 06:25 | WPDHPUPDATE1 ---
History and Physical Update Update Date/Time: 05/27/23 06:25 History and Physical has been reviewed, including an updated exam of the patient. There are NO changes in the patient's condition. Risks, benefits, and alternatives have been discussed and questions answered. Patient agrees to proceed with procedure.
[2023-05-27 09:10] LABS: Glucose Point of Care 96 mg/dl (65-105)
[2023-05-27] MEDS: LACTATED RINGERS 1,000 ML 30 ML IV CONT (09:10)
--- NOTE | 2023-05-27 09:29 | WPDANESEPPF ---
Anes - Initial Pre Proc Eval Procedure: Operation Date: 05/27/23 10:15 Proposed Procedures p Cystoscopy, Bilateral Retrograde Pyelogram, Bladder Biopsy - August Bryan MD s Trans Urethral Resection Bladder Tumor with Gemcitabine Instillation - August Bryan MD Date/Time: 05/27/23 09:29 Surgeon: August Bryan MD Pre Op Diagnosis: Bladder Ca Patient Data Age: 72 Gender: M Height: 1.78 m Weight: 92.7 kg Last Vital Signs Temp 36.2 C L 05/27/23 08:50 Pulse 64 05/27/23 08:50 Resp 18 05/27/23 08:50 BP 127/73 05/27/23 08:50 Pulse Ox 98 05/27/23 08:50 O2 Del Method Room Air 05/27/23 08:50 Allergies Allergy/AdvReac Type Severity Reaction Status Date / Time niacin Allergy Unknown Unknown Verified 05/27/23 08:43 Home Medications Medication Instructions Recorded Confirmed Type blood sugar diagnostic (Blood #10 ea 05/31/19 05/27/23 Rx Glucose Test strips) acetaminophen 500 mg capsule 1,000 mg PO Q6H PRN pain #60 caps 01/15/20 05/27/23 Rx blood sugar diagnostic (OneTouch #100 ea 02/21/20 05/27/23 Rx Ultra Blue Test Strip) glimepiride 2 mg tablet See Rx Instructions .Route 09/03/22 05/27/23 Rx .COMPLEX #90 tabs ezetimibe 10 mg tablet See Rx Instructions .Route 09/07/22 05/27/23 Rx .COMPLEX #90 tabs metformin 500 mg tablet,extended See Rx Instructions .Route 12/16/22 05/27/23 Rx release 24 hr .COMPLEX #180 tabs atorvastatin 80 mg tablet See Rx Instructions .Route 01/12/23 05/27/23 Rx .COMPLEX #90 tabs trazodone 50 mg tablet 50 mg PO QHS PRN insomnia #30 tabs 03/08/23 05/27/23 Rx lisinopril 40 mg tablet 40 mg PO DAILY #90 tabs 04/30/23 05/27/23 Rx amlodipine 10 mg tablet 10 mg PO HS 05/21/23 05/27/23 History magnesium 200 mg tablet 200 mg PO HS 05/21/23 05/27/23 History topiramate 50 mg tablet 100 mg PO BID MIGRAINE 05/21/23 05/27/23 History vitamin B complex 1 cap PO HS 05/21/23 05/27/23 History tadalafil 20 mg tablet (Cialis) 20 mg PO DAILY PRN sexual activity 05/24/23 05/27/23 Rx #10 tabs Laboratory Tests 05/27/23 09:07 POC Capillary Glucose 96 mg/dl (65-105) Patient hx anesthesia problems: none Family hx anesthesia problems: none Results Review: All pre-operative results and documents have been reviewed as part of the pre-operative evaluation. [facility] Past Medical History Medical History Community acquired pneumonia of left upper lobe of lung Hyperlipidemia LDL goal <70 Hypertension Migraine with aura and without status migrainosus, not intractable RICHARD (obstructive sleep apnea) PTSD (post-traumatic stress disorder) Sacroiliac joint dysfunction of right side Type 2 diabetes mellitus Family History Family History Grandparent Diabetes mellitus Sibling Diabetes mellitus Mother Family history of malignant neoplasm Social History Social History Smoking packs per day: 1 Smoking cigarettes per day: 20.0 Years smoked: 40 Smoking pack-years: 40.00 Smoking status: Current every day smoker Tobacco type: cigarettes Second hand tobacco smoke exposure: Yes Alcohol intake: current Drinks per week: 2 Alcohol use details: rare Substance use: current Substance use type: marijuana Other substance usage details: 1-2 times per month Last use: 05/15/23 Living arrangements: with family Occupation/Education: retired Gender identity (if verbalized by the patient): Male Spiritual care concerns: No Anes - Eval Final PreProcedure Day of Procedure 05/27/23 09:29 Patient weight: overweight Heart: regular rate and rhythm Lungs: decreased breath sounds Airway: Mallampati scale class II Neurological: alert and oriented Last oral intake: >/= 8 hours ASA classification: III Emergent: no Anesthetic plan: proceed Anesthesia type and mo
[2023-05-27] MEDS: ceFAZolin 2 GM/D5W 50 ML 2 GM/50 ML BAG IVPB (09:52)
--- NOTE | 2023-05-27 10:25 | W.PM.PROC2 ---
Procedure Note - Detailed Date of Procedure 05/27/23 Pre-op Diagnosis Bladder Ca Post-op Diagnosis Same Procedure Performed Cystoscopy, bilateral retrograde pyelography, TURBT (small, 1-2 cm ) Surgeon August Bryan MD Anesthesia General Description of Procedure patient is brought to the op suite was prepped and draped in routine sterile fashion while in dorsal lithotomy position after the uneventful induction of a general LMA anesthetic. 2% xylocaine jelly was introduced intraurethrally. First I placed a 24 F resectoscope. Two tiny papillary lesions in his posterior and left lateral bladder wall resected with a 24 F loop. The base and periphery were cauterized. An 8 F bulb-tipped catheter was used to obtain bilateral retrograde pyelograms which appeared normal, without obstruction or filling defect. Scopes and wires removed and he was taken recovery room good condition. Drains No Packing No Pathology Yes Condition Stable
--- NOTE | 2023-05-27 10:26 | W.PM.PROC2 ---
Procedure Note - Detailed Date of Procedure 05/27/23 Pre-op Diagnosis Bladder Ca Post-op Diagnosis Same Procedure Performed Gemcitabine installation Surgeon August Bryan MD Anesthesia General and None Description of Procedure With the patient in the supine position, a 16F Peters catheter is placed using sterile technique. Using a protective facemask, gown and double layer of gloves Gemcitabine 2gm in 100cc saline is administered through the catheter/into the bladder. The catheter is then plugged. Patient was instructed to lie supine x20min, then to roll both the left and right x20 min. each. Total dwell time will be 60 min., after which the bladder will be drained and catheter removed.
[2023-05-27] MEDS: fentaNYL CITRATE INJ (*CRX) 100 MCG/2 ML VIAL 25 MCG IV PUSH ×6 (10:30→11:27)
[2023-05-27] MEDS: SODIUM CHLORIDE 0.9% IV 23.7 ML, GEMCITABINE HCL 1,000 MG BLADDER ×2 (10:33→10:34)
[2023-05-27 10:37] LABS: Glucose Point of Care 92 mg/dl (65-105)
[2023-05-27] MEDS: SODIUM CHLORIDE 0.9% IV 50 ML BAG 150 ML IRRIGATION (11:33)
== END 2023-05-27 12:40 | disposition home or self-care (01) ==
PROVIDERS: PCP Family Medicine; Visit Provider Urology
PROC: (CPT 52352; principal; 2023-05-27 10:15)
PROC: 0TBB8ZZ Excision of Bladder, Via Natural or Artificial Opening Endoscopic (ICD-10-PCS; CPT 52234; 2023-05-27 10:15)
DX: Z08 Encounter for follow-up examination after completed treatment for malignant neoplasm (principal); N30.20 Other chronic cystitis without hematuria; Z85.51 Personal history of malignant neoplasm of bladder; G47.30 Sleep apnea, unspecified; I10 Essential (primary) hypertension; E78.00 Pure hypercholesterolemia, unspecified; E11.9 Type 2 diabetes mellitus without complications; F17.210 Nicotine dependence, cigarettes, uncomplicated; F12.90 Cannabis use, unspecified, uncomplicated; Z79.82 Long term (current) use of aspirin; Z79.84 Long term (current) use of oral hypoglycemic drugs
CPT/HCPCS: 52234; 51720; 74420; 82948; 88305; C1758; C1769; J0690; J2405; J2704; J3010; J7120; J9201; Q9966

== ENCOUNTER 2023-09-07 10:16 | Outpatient (CLI) | payer MEDICARE, SELFPAY ==
[2023-09-07 12:02] LABS: Anion Gap 10 mmol/L (8-16); Blood Urea Nitrogen 22 mg/dL (9-20); Carbon Dioxide 20 mmol/L (22-30); Chloride 112 mmol/L (98-107); Estimated Glomerular Filt Rate > 60; Glucose 190 mg/dL (65-110); Potassium 3.6 mmol/L (3.4-5.0); Sodium 142 mmol/L (137-145)
== END 2023-09-07 10:17 | disposition home or self-care (01) ==
LOC: ANHSURGERY 10:58
PROVIDERS: Anesthesiology; PCP Family Medicine; Visit Provider Urology
DX: E11.65 Type 2 diabetes mellitus with hyperglycemia (principal); Z01.818 Encounter for other preprocedural examination
CPT/HCPCS: 36415; 80048

== ENCOUNTER 2023-09-16 01:00 | Day surgery (SDC) | payer MEDICARE, SELFPAY ==
[2023-09-02 10:06] VITALS: BMI 28.1
--- NOTE | 2023-09-02 10:26 | PC.NURSE ---
Report to the Outpatient Waiting Room, entrance under the green pavilion located off [facility], at time __6:30AM on date ___09/16/23____. Planned Procedure Time: __8:30AM . Time changes happen often and if your time is changed the preop area will call you the afternoon before. - You and your visitor will be asked to self-screen and do not enter if you have any COVID symptoms. - A mask is optional within the hospital at this time. Patients may have clear liquids (water, carbonated beverages, clear teas, apple juice) until 3 hours prior to surgery with a maximum of 20 ounces. - No food from midnight until time of surgery. Take the following medications with a SIP of water the morning of surgery: ___TOPIRAMATE DO NOT STOP ANY OF YOUR OTHER PRESCRIPTION MEDICATIONS PRIOR TO SURGERY ?EXCEPT THE FOLLOWING Medications to discontinue per physician HOLD ALL VITAMINS/SUPPLEMENTS 7 DAYS PRE-OP Date to take last dose____09/08/23 Please no make-up, nail montenegrin, hairspray, perfume, deodorant, or body powder the day of surgery. No jewelry (including any body piercings) or valuables the day of surgery, leave them at home. Please take a shower or bath the night before, or the morning of, surgery with an antibacterial soap. Wear comfortable, loose fitting clothing. - Jewelry must be removed prior to entering the operating room. Rings and piercings that are not removed may be cut off. - The hospital will not accept responsibility for valuables. - Please leave all valuables, including medications, at home the day of surgery. If you are going home after surgery, a licensed seasonal driver must drive you home. - NO public transportation without another adult if you receive anesthesia. - We recommend that an adult stay with you for 24 hours following discharge. - We also recommend that you do not drive, make important decision, drink alcoholic beverages, or take any drugs that were not prescribed by your health care provider for at least 24 hours after your discharge time. Follow any additional instructions given to you from your surgeon. If you or anyone in your household have experienced Covid symptoms in the past week, please notify your surgeon or the nurse liaison at the phone number below for possible testing. Telephone instructions given to ____PATIENT and asked if any additional questions and then verbalized understanding. Patient advised to call surgeon office or pre surgery nurse liaison [phone] if any additional questions.
[2023-09-16] VITALS (9 sets, daily range): BP systolic 100–154; BP diastolic 50–84; PULSE 66–82; RESP 12–19; TEMP 36.4–36.9; O2SAT 95–100
--- NOTE | 2023-09-16 06:22 | WPDHPUPDATE1 ---
History and Physical Update Update Date/Time: 09/16/23 06:22 History and Physical has been reviewed, including an updated exam of the patient. There are NO changes in the patient's condition. Risks, benefits, and alternatives have been discussed and questions answered. Patient agrees to proceed with procedure.
[2023-09-16] MEDS: LACTATED RINGERS 1,000 ML 30 ML IV CONT ×2 (06:40→10:07)
--- NOTE | 2023-09-16 06:52 | WPDANESEPPF ---
Anes - Initial Pre Proc Eval Procedure: Operation Date: 09/16/23 08:30 Proposed Procedures p Trans Urethral Resection Bladder Tumor with Gemcitabine Instillation - August Bryan MD Date/Time: 09/16/23 06:52 Surgeon: August Bryan MD Pre Op Diagnosis: Bladder Ca Patient Data Age: 72 Gender: M Height: 1.78 m Weight: 89 kg Allergies Allergy/AdvReac Type Severity Reaction Status Date / Time niacin Allergy Unknown Rash Verified 09/02/23 09:59 Home Medications Medication Instructions Recorded Confirmed Type blood sugar diagnostic (Blood #10 ea 05/31/19 05/27/23 Rx Glucose Test strips) acetaminophen 500 mg capsule 1,000 mg PO Q6H PRN pain #60 caps 01/15/20 09/02/23 Rx blood sugar diagnostic (OneTouch #100 ea 02/21/20 05/27/23 Rx Ultra Blue Test Strip) atorvastatin 80 mg tablet See Rx Instructions .Route 01/12/23 09/02/23 Rx .COMPLEX #90 tabs amlodipine 10 mg tablet 10 mg PO HS 05/21/23 09/02/23 History magnesium 200 mg tablet 200 mg PO HS 05/21/23 09/02/23 History vitamin B complex 1 cap PO HS 05/21/23 09/02/23 History tadalafil 20 mg tablet (Cialis) 20 mg PO DAILY PRN sexual activity 05/24/23 09/02/23 Rx #10 tabs topiramate 50 mg tablet 100 mg PO BID MIGRAINE #180 tabs 07/11/23 09/02/23 Rx trazodone 50 mg tablet 50 mg PO QHS PRN insomnia #30 tabs 08/05/23 09/02/23 Rx ezetimibe 10 mg tablet See Rx Instructions .Route 08/23/23 09/02/23 Rx .COMPLEX #90 tabs cholecalciferol (vitamin D3) 50 50 mcg PO DAILY 09/02/23 09/02/23 History mcg (2,000 unit) capsule glimepiride 2 mg tablet 2 mg PO QAM 09/02/23 09/02/23 History lisinopril 40 mg tablet 40 mg PO QAM 09/02/23 09/02/23 History metformin 500 mg tablet,extended 1,000 mg PO HS #180 tabs 02/18/24 Rx release 24 hr Patient hx anesthesia problems: none Family hx anesthesia problems: none Results Review: All pre-operative results and documents have been reviewed as part of the pre-operative evaluation. [facility] Past Medical History Medical History Community acquired pneumonia of left upper lobe of lung Hyperlipidemia LDL goal <70 Hypertension Migraine with aura and without status migrainosus, not intractable RICHARD (obstructive sleep apnea) PTSD (post-traumatic stress disorder) Sacroiliac joint dysfunction of right side Type 2 diabetes mellitus Family History Family History Grandparent Diabetes mellitus Sibling Diabetes mellitus Mother Family history of malignant neoplasm Social History Social History Smoking packs per day: 1 Smoking cigarettes per day: 20.0 Years smoked: 55 Smoking pack-years: 55.00 Smoking status: Current every day smoker Tobacco type: cigarettes Second hand tobacco smoke exposure: Yes Alcohol intake: current Drinks per week: 2 Alcohol use details: rare Substance use: current Substance use type: marijuana Other substance usage details: 1-2 times per month Last use: 05/15/23 Living arrangements: with family Additional living arrangements comments: Occupation/Education: retired Gender identity (if verbalized by the patient): Male Spiritual care concerns: No Anes - Eval Final PreProcedure Day of Procedure 09/16/23 06:52 Patient weight: overweight Heart: regular rate and rhythm Lungs: decreased breath sounds Airway: Mallampati scale class II Neurological: alert and oriented Last oral intake: >/= 8 hours ASA classification: III Emergent: no Anesthetic plan: proceed Anesthesia type and monitoring: general LMA and standard monitoring Results Review: All pre-operative results and documents have been reviewed as part of the pre-operative evaluation. Informed Consent: The patient's anesthetic plan and its attendant risks and benefits were discussed with the patient/family/POA. Ques
[2023-09-16 07:20] LABS: Glucose Point of Care 124 mg/dl (65-105)
[2023-09-16] MEDS: ceFAZolin 2 GM/D5W 50 ML 2 GM/50 ML BAG IVPB (08:12)
[2023-09-16] MEDS: LIDOCAINE HCL 2% GEL UROJET 10 ML PKG MUCOUS MEM (08:31)
--- NOTE | 2023-09-16 08:37 | W.PM.PROC2 ---
Procedure Note - Detailed Date of Procedure 09/16/23 Pre-op Diagnosis Bladder Ca Post-op Diagnosis Same Procedure Performed TURBT (small, 1 cm) Surgeon August Bryan MD Anesthesia General Description of Procedure Patient is brought to the operative suite where he was prepped and draped in routine sterile fashion while in dorsal lithotomy position. 2% xylocaine jelly was introduced intraurethrally and general LMA anesthetic is administered per the anesthesia department. Twenty-four F resectoscope was placed in his bladder. He has moderate lateral lobe hyperplasia. Bladder mucosa is normal with the exception of a small papillary lesion of the left anterior lateral bladder wall. There were no additional neoplasm. Using a loop electrode a small areas resected and the bases cauterized. Resectoscope was removed and a 18F urethral catheter was placed to drainage Drains No Packing No Pathology Yes Complications No immediate complications
--- NOTE | 2023-09-16 08:48 | W.PM.PROC2 ---
Procedure Note - Detailed Date of Procedure 09/16/23 Pre-op Diagnosis Bladder Ca Post-op Diagnosis Same Procedure Performed Gemcitabine installation Surgeon August Bryan MD Anesthesia General Description of Procedure With the patient in the supine position, a 16F Peters catheter is placed using sterile technique. Using a protective facemask, gown and double layer of gloves Gemcitabine 2gm in 100cc saline is administered through the catheter/into the bladder. The catheter is then plugged. Patient was instructed to lie supine x20min, then to roll both the left and right x20 min. each. Total dwell time will be 60 min., after which the bladder will be drained and catheter removed.
[2023-09-16] MEDS: SODIUM CHLORIDE 0.9% IV 23.7 ML, GEMCITABINE HCL 1,000 MG BLADDER ×2 (08:52→08:53)
[2023-09-16 09:01] LABS: Glucose Point of Care 110 mg/dl (65-105)
[2023-09-16] MEDS: fentaNYL CITRATE INJ (*CRX) 100 MCG/2 ML VIAL 25 MCG IV PUSH ×3 (09:07→09:49)
--- NOTE | 2023-09-16 09:10 | SUR.PHASEI ---
0910: Simple mask removed.
--- NOTE | 2023-09-16 10:20 | SUR.PHASEI ---
Addendum entered by Virginia Landry RN 09/16/23 10:29: 1005 Original Note: Pt. was supine for 20 minutes, then rotated to right side for 20 minutes, then rotated to left side for 20 minutes per PACU orders. The bladder was drained into hernández bag (550 hua clear output) under chemo precautions. The bladder was backfilled with 200mL sterile saline, and the catheter was discontinued at this time. Pt. must void prior to discharge.
== END 2023-09-16 10:57 | disposition home or self-care (01) ==
PROVIDERS: PCP Family Medicine; Visit Provider Urology
PROC: 0TBB8ZZ Excision of Bladder, Via Natural or Artificial Opening Endoscopic (ICD-10-PCS; CPT 52234; principal; 2023-09-16 08:30)
DX: Z08 Encounter for follow-up examination after completed treatment for malignant neoplasm (principal); N30.90 Cystitis, unspecified without hematuria; I10 Essential (primary) hypertension; E78.5 Hyperlipidemia, unspecified; E11.65 Type 2 diabetes mellitus with hyperglycemia; G47.33 Obstructive sleep apnea (adult) (pediatric); F43.10 Post-traumatic stress disorder, unspecified; F17.210 Nicotine dependence, cigarettes, uncomplicated; F12.90 Cannabis use, unspecified, uncomplicated; Z79.84 Long term (current) use of oral hypoglycemic drugs; Z98.890 Other specified postprocedural states; Z85.51 Personal history of malignant neoplasm of bladder; Z80.1 Family history of malignant neoplasm of trachea, bronchus and lung
CPT/HCPCS: 52234; 51720; 82948; 88305; 88342; J0690; J1100; J2371; J2405; J2704; J3010; J7120; J9201

== ENCOUNTER 2024-06-08 11:40 | Outpatient (CLI) | payer MEDICARE, SELFPAY ==
--- NOTE | ~2024-06-08 | XR_ITS ---
Left Shoulder Technique: AP and scapular Y views were obtained. Clinical History: Pain Findings: No fracture or dislocation is seen. Osseous alignment is anatomic. The glenohumeral joint i s intact. There is mild AC joint degenerative change. Soft tissues are unremarkable. Impression: Mild AC joint degenerative change. Reviewed, dictated and finalized at [facility]. E PRACTITIONER HOSPITALIST Impression: Mild AC joint degenerative change.
--- NOTE | ~2024-06-08 | XR_ITS ---
EXAMINATION: XR lumbar spine min 4V DATE: 06/08/2024 12:12 INDICATION: Low back pain, unspecified. TECHNIQUE: 6 views of lumbar spine were obtained. COMPARISON: CT abdomen and pelvis 07/16/2021 FINDINGS: There is 36 degrees levoscoliosis of lumbar spine. There is 3 mm retrolisthesis of T12 on L 1 and L1 on L2. There is mild chronic anterior wedging of T11-L1 vertebral bodies. There is moderatel y decreased disc height at L1-L2 and severely decreased disc height from L2 to L3 through L4-L5. Ther e is multilevel severe facet joint osteoarthritis. There are surgical clips from ventral hernia repai r. IMPRESSION: 1. Severe lumbar spondylosis. 2. Lumbar levoscoliosis. Reviewed, dictated and finalized at location A. OLATE COATER
--- NOTE | ~2024-06-08 | XR_ITS ---
INDICATION: EXAMINATION: XR ribs LT 2V w CXR 2V DATE: 06/08/2024 12:12 INDICATION: Other chest pain. TECHNIQUE: Frontal and lateral views of the chest and 2 views on 3 radiographs of the left ribs were obtained. COMPARISON: CT abdomen and pelvis 07/16/2021 FINDINGS: CHEST TWO VIEWS: There is mild atelectasis at left lung base. No pleural effusion or pneumothorax. Th e heart size is normal. There is mild chronic anterior wedging of multiple vertebral bodies. LEFT RIBS: There are old healed fractures of left third-eighth ribs. There are stones in left kidney measuring up to 11 mm. IMPRESSION: 1. No acute rib fracture. 2. Mild atelectasis at left lung base. 3. Left kidney stones. Reviewed, dictated and finalized at location A. STRATE JUDGE
== END 2024-06-08 11:41 | disposition home or self-care (01) ==
PROVIDERS: PCP Family Medicine; Visit Provider Family Medicine
DX: M19.012 Primary osteoarthritis, left shoulder (principal); M41.86 Other forms of scoliosis, lumbar region; M47.816 Spondylosis without myelopathy or radiculopathy, lumbar region; J98.11 Atelectasis; N20.0 Calculus of kidney
CPT/HCPCS: 71046; 71100; 72110; 73030

== ENCOUNTER 2024-07-01 08:16 | Outpatient (CLI) | payer MEDICARE, SELFPAY ==
--- NOTE | ~2024-07-01 | MR_ITS ---
EXAMINATION: MR shoulder LT wo con DATE: 07/01/2024 09:49 INDICATION: Left shoulder pain. Fall. TECHNIQUE: Magnetic resonance imaging (MRI) of the left shoulder was performed without intravenous co ntrast. Sequences included axial PD-weighted FS FSE, coronal oblique PD-weighted FS FSE and T2-weight ed FS FSE, and sagittal oblique T2-weighted FS FSE and T1-weighted FSE. COMPARISON: Left shoulder radiographs 06/08/2024 FINDINGS: Coracoacromial arch: The acromion undersurface is flat in morphology (type I). There is severe acromioclavicular joint ost eoarthritis. There is mild subacromial/subdeltoid bursitis. Rotator cuff: There is mild supraspinatus and infraspinatus tendinopathy. Teres minor tendon is normal. There is mi ld subscapularis tendinopathy. The rotator cuff muscle bellies are normal. Biceps tendon and glenoid labrum: Biceps tendon is in bicipital groove. Intra-articular biceps tendon is normal. The glenoid labrum is normal. Fluid: There is no glenohumeral joint effusion. Bones/cartilage: Humeral head cartilage is normal. Glenoid cartilage is normal. IMPRESSION: 1. Mild rotator cuff tendinopathy. No tear. 2. Severe acromioclavicular joint osteoarthritis. 3. Mild subchondral/subdeltoid bursitis. Reviewed, dictated and finalized at location A. WELDER
== END 2024-07-01 08:17 | disposition home or self-care (01) ==
PROVIDERS: PCP Family Medicine; Visit Provider Student in an Organized Health Care Education/Training Program
DX: M25.612 Stiffness of left shoulder, not elsewhere classified (principal); M25.512 Pain in left shoulder; M19.012 Primary osteoarthritis, left shoulder; M75.52 Bursitis of left shoulder
CPT/HCPCS: 73221

== ENCOUNTER 2024-07-10 08:37 | Outpatient (CLI) | payer MEDICARE, SELFPAY ==
--- NOTE | 2024-07-10 08:30 | ECG_ITS ---
Test Date: 2024-07-10 08:56:31 Measurements Intervals [place] Rate: 58 P: 60 CO: 185 QRS: -30 QRSD: 91 T: 46 QT: 397 QTc: 392 Interpretive Statements SINUS BRADYCARDIA WITH MARKED SINUS ARRHYTHMIA BORDERLINE LEFT AXIS DEVIATION [QRS AXIS < -20] WARNING: DATA QUALITY MAY AFFECT INTERPRETATION No previous ECG available for comparison Electronically Signed On 07-10-2024 12:05:13 DIAGNOSTIC TECH by Paolo Sanchez M.D.
[2024-07-10 10:14] LABS: Anion Gap 9 mmol/L (4-12); Blood Urea Nitrogen 17 mg/dL (9-20); Calcium 9.1 mg/dL (8.4-10.2); Carbon Dioxide 24 mmol/L (22-30); Chloride 110 mmol/L (98-107); Estimated Glomerular Filt Rate > 60; Glucose 130 mg/dL (65-110); Potassium 3.9 mmol/L (3.4-5.0); Sodium 143 mmol/L (137-145)
--- OUTSIDE RECORDS SUMMARY | 2024-07-16 17:05 | XMS_ITS | Encounter Summary ---
Author Organization [email or web address] Care Team Providers Care Food Mixer Name Role Phone Yas Marques MD Primary Care [facility] Encounter Details Date Type Department Care Team (Latest Contact Info) Description 04/17/2021 Travel Social History Tobacco Use Types Packs/Day Years Used Date Smoking Tobacco: Every Day Cigarettes 1 39.1 Started: 06/12/1985 Smokeless Tobacco: Never Alcohol Use Standard Drinks/Week Comments Yes 1 (1 standard drink = 0.6 oz pur e alcohol) 1-2 drinks a month Sex and Gender Information Value Date Recorded Sex Assigned at Not on file Legal Sex Male 11:55 PM CDT Gender Identity Not on file Sexual Orientation Not on file Occupation Industry Job Start Date Job End Date Retired [employer] Not on file Not on file Not on file works part- time [employer] Not on file Not on file Not on file COVID-19 Exposure Response Date Recorded In the last month, have you been in contact with someone who was confirmed or suspected to have Coronavirus / COVID-19? No / Unsure 04/17/2021 12:37 PM CDT documented as of this encounter Plan of Treatment Not on file documented as of this encounter Visit Diagnoses Not on filedocumented in this encounter Additional Health Concerns Assessment Noted Time PHQ-9 Depression Total Score: 0 10/03/19 17 8:00 AM BONDING AGENT documented as of this encounter Care Teams Food Mixer Relationship Specialty Start Date End Date Yas Marques MD [address] [place] [address] PCP - General Family Medicine 02/21/18 documented as of this encounter
--- OUTSIDE RECORDS SUMMARY | 2024-07-16 17:05 | XMS_ITS | Clinical Summary ---
Author Organization [facility] Address [address] [address] Phone Care Team Providers Care Dean Of Men Name Role Phone Yas Marques MD Primary Care [facility]dirahman Allergies No known active allergies Medications Glucose Blood (ONE TOUCH ULTRA TEST) Strip Use twice daily 200 Each 3 6 Active Blood Glucose Monitoring Suppl (ONE TOUCH ULTRA 2) W/DEVICE Kit 1 Device by Does not apply route daily. 1 Each 0 6 Active Glucose Blood (ONE TOUCH TEST STRIPS) Strip Check blood glucose twice daily dx E11.9 100 Each 3 6 Active ACCU-CHEK MULTICLIX LANCETS Misc Check blood glucose twice daily Dx E11.9 100 Each 3 6 Active Fenofibrate Micronized 134 MG CapsuleIndicatio ns:Dyslipidemia Take 1 Cap by mouth daily. 30 Cap 3 6 Active hydrochlorothiaz kevin 25 MG TabletIndication s:Essential hypertension Take 1 Tab by mouth daily. 30 Tab 3 6 Active Additional Information Patient not taking.Reported on 02/25/2018 clopidogrel (PLAVIX) 75 MG Tablet Take 1 Tab by mouth daily. 30 Tab 5 6 Active Additional Information Patient not taking.Reported on 02/25/2018 sildenafil citrate (VIAGRA) 100 MG Tablet Take 1 Tab by mouth as needed for Erectile Dysfunction. 10 Tab 0 6 Active amLODIPine (NORVASC) 5 MG TabletIndication s:Essential hypertension Take 1 Tab by mouth daily. 90 Tab 3 7 Active atorvastatin (LIPITOR) 80 MG Tablet Take 1 Tab by mouth daily. 90 Tab 1 7 Active lisinopril (PRINIVIL, ZESTRIL) 20 MG Tablet Take 1 Tab by mouth daily. 90 Tab 3 7 Active metFORMIN (GLUCOPHAGE) 1000 MG TabletIndication s:Non-insulin dependent type 2 diabetes mellitus (HCC) Take 1 Tab by mouth 2 times daily (with meals). 180 Tab 3 7 Active topiramate (TOPAMAX) 25 MG Tablet Take 1 Tab by mouth daily. 120 Tab 1 7 Active metoprolol tartrate (LOPRESSOR) 50 MG TabletIndication s:Essential hypertension Take 1 Tab by mouth 2 times daily. 60 Tab 1 7 Active Additional Information Patient not taking.Reported on 02/25/2018 ONE TOUCH ULTRA TEST Strip To test blood sugar twice daily E11.9 200 Strip 7 Active ezetimibe (ZETIA) 10 MG Tablet Take 10 mg by mouth daily. Active glimepiride (AMARYL) 2 MG Tablet Take 2 mg by mouth every morning. Active Multiple Vitamins-Iron (RA MULTI-VITAMIN STRESS/IRON PO) Take 1 Tab by mouth daily. Active Magnesium 250 MG Tablet Take 400 mg by mouth daily. Active Active Problems Problem Noted Date Diagnosed Date HTN (hypertension) Non-insulin dependent type 2 diabetes mellitus Dyslipidemia Headache Overview (05/30/2015): (? CLASSIC MIGRAINE) Immunizations Immunization Administration Dates Next Due Influenza Vaccine greater than 3 yrs 07/26/2013 Influenza, high-dose, trivalent, PF 05/30/2015 PNEUMONIA ADULT IM PPSV23 10/02/2016(Deferred: P atient Refused) PUR FLU HIGH DOSE (FLUZONE) 04/23/2016 PUR PCV-13 07/02/2015 Pneumococcal Vaccine Adult - 23 Valent 7 TD VACCINE 04/25/2011 Family History Medical History Relation Name Comments Congestive Heart Failure Father Stroke Father Cancer Mother OVARIAN Emphysema Mother Relation Name Status Comments Father Mother Social History Tobacco Use Types Packs/Day Years Used Date Smoking Tobacco: Every Day Cigarettes 1 39.1 Started: 06/12/1985 Smokeless Tobacco: Never Tobacco Cessation:Ready to Q uit: Yes; Counseling Given: Yes Alcohol Use Standard Drinks/Week Comments Yes 1 (1 standard drink = 0.6 oz pur e alcohol) 1-2 drinks a month Sex and Gender Information Value Date Recorded Sex Assigned at Not on file Legal Sex Male 11:55 PM CDT Gender Identity Not on file Sexual Orientation Not on file Occupation Industry Job Start Date Job End Date Retired [employer] Not on file Not on file Not on file works part- time [employer] Not on file Not on file Not on file Last Filed Vital Signs Vital Sign Reading Time Taken Comments Blood Pressure 132/86 04/17/2021 1:45 PM CDT Pulse 68 04/17/2021 1:45 PM CDT Temperature 36.4 ??C (97.5 ??F) 04/17/2021 1:45 PM CD T Respiratory Rate 16 04/17/2021 1:45 PM CDT Oxygen Saturation 95% 04/17/2021 1:45 PM CDT Inhaled Oxygen Concentration - - Weight 95.3 kg (210 lb) 04/17/2021 1:45 PM CDT Height 177.8 cm (5' 10 ) 02/25/2018 1:00 PM CDT Body Mass Index 30.13 02/25/2018 1:00 PM CDT Plan of Treatment Health Maintenance Due Date Last Done Comments Diabetes: Eye Exam 1950 Diabetes: Foot Exam 1950 Hepatitis C Virus (HCV) Screening 1950 TdaP Immunization 1950 Cologuard 09/29/1999 Immunochemical Fecal Occult Blood 09/29/1999 Zoster Immunization (1 of 2) 09/29/1999 Diabetes: Hemoglobin A1c 10/21/2016 04/23/2016 Diabetes: Nephropathy Screening 03/16/2017 03/16/2016 Influenza Immunization (#1) 2024 10/0 02/2020, 05/03/2019, 04/23/2016, Additional history exists SARS-COV-2 Immunization ( season) 2024 06/10/2021, 09/18/2020, 08/28/2020 Respiratory Syncytial Virus (RSV) Immunization (Adult) (1 - 1-dose 75+ series) 2024 Colonoscopy 03/03/2028 03/03/2018, 08/01/2008 Colorectal Cancer Screening 03/03/2028 03/03/2018, 08/01/2008 Pneumococcal Immunization (50+ years) Completed 11/23/2016, 07/02/2015 Pneumococcal Immunization Combined Discontinued 11/23/2016, 07/02/2015 Hepatitis B Immunization Aged Out No longer eligible based on patient's age to complete this topic Meningococcal Immunization (ACWY) Aged Out No longer eligible based on patient's age to complete this topic Rotavirus Immunization Aged Out No lo nger eligible based on patient's age to complete this topic Procedures Procedure Name Priority Date/Time Associated Diagnosis Comments HEMOGLOBIN A1C W/ ESTIMATED GLUCOSE Today 04/23/2016 8:20 AM CDT Non-insulin dependent type 2 diabetes mellitus CMP (COMPREHENSIVE METABOLIC PANEL) STAT 03/16/2016 7:36 PM CDT HM COLONOSCOPY Routine 08/01/2008 from Last 3 Months or Most Recently Relevant to Health Maintenance Results * (ABNORMAL) HEMOGLOBIN A1C W/ ESTIMATED GLUCOSE (04/23/2016 8:20 AM CDT) HGB-A1C 7.9(H) 4.4 - 6.4 % 04/23/2016 11:07 AM CDT [facility] Est Average Glucose 180.0 mg/dL 04/23/2016 11:07 AM CDT [facility] Blood specimen (specimen) Venipuncture / Unknown 04/23/2016 8:20 AM CDT 04/23/2016 8:23 AM CDT Narrative [facility] - 04/23/2016 11:07 AM CDT HEMOGLOBIN A1C: DIABETIC PATIENTS: WELL-CONTROLLED: ?? 6.2 - 7.0 INTERMEDIATE WELL-CONTROLLED: ??7.0 - 9.0 POORLY-CONTROLLED: ??>9.0 us Rigo Maxwell DO CHEMISTRY ORDERABLES Final Resul t [facility] [address] [place] [address] * (ABNORMAL) CMP (Comprehensive Metabolic Panel) (03/16/2016 7:36 PM CDT) SODIUM 140 131 - 143 mmol/L 03/16/2016 8:06 PM CDT [facility] POTASSIUM 3.5 3.5 - 5.1 mmol/L 03/16/2016 8:06 PM CDT [facility] CHLORIDE 105 100 - 110 mmol/L 03/16/2016 8:06 PM CDT [facility] CO2, VENOUS 23 22 - 32 mmol/L 03/16/2016 8:06 PM CDT [facility] ANION GAP 15.5 8.0 - 20.0 mmol/L 03/16/2016 8:06 PM CDT [facility] GLUCOSE 198(H) 70 - 105 mg/dL 03/16/2016 8:06 PM CDT [facility] BUN 21 10 - 31 mg/dL 03/16/2016 8:06 PM CDT [facility] CREATININE, BLOOD 1.33(H) 0.60 - 1.30 mg/dL 03/16/2016 8:06 PM CDT [facility] BUN/CREATININE RATIO 16 12 - 20 ratio 03/16/2016 8:06 PM CDT [facility] TOTAL PROTEIN 7.9 6.0 - 8.3 g/dL 03/16/2016 8:06 PM CDT [facility] ALBUMIN 4.4 3.5 - 5.2 g/dL 03/16/2016 8:06 PM CDT [facility] A/G RATIO 1.3 1.0 - 2.0 03/16/2016 8:06 PM CDT [facility] CALCIUM 9.8 8.9 - 10.3 mg/dL 03/16/2016 8:06 PM CDT [facility] T BILI 0.4 0.3 - 1.2 mg/dL 03/16/2016 8:06 PM CDT [facility] SGOT (AST) 18 1 - 40 U/L 03/16/2016 8:06 PM CDT [facility] SGPT (ALT) 23 1 - 40 U/L 03/16/2016 8:06 PM CDT [facility] ALKALINE PHOSPHATASE 49 40 - 130 U/L 03/16/2016 8:06 PM CDT [facility] GFR, EST. NONAFRICAN 54(L) >=60 03/16/2016 8:06 PM CDT [facility] GFR, EST. >60 >=60 03/16/2016 8:06 PM CDT [facility] Comment: Creatinine Clearance is the preferred criteria for selecting drug dose adjustments in renally impaired patients. ??The GFR is provided as additional pertinent clinical information. GFR is reported in mL/min/1.73 sq m. Blood specimen (specimen) Venous Catheter (IV) / Unknown 03/16/2016 7:36 PM CDT 03/16/2016 7:43 PM CDT us Elfego Garcia MD CHEMISTRY ORDERABLES Fin al Result [facility] [address] [place] [address] * COLONOSCOPY (08/01/2008) us Unknown Provider PROCEDURE/MINOR SURGICAL ORDERA BLES Edited Result - Final from Last 3 Months or Most Recently Relevant to Health Maintenance Insurance MEDICARE [facility] Care Teams Dean Of Men Relationship Specialty Start Date End Date Yas Marques MD [address] [place] [address] PCP - General Family Medicine 02/21/18
--- OUTSIDE RECORDS SUMMARY | 2024-07-16 17:05 | XMS_ITS | Encounter Summary ---
Author Organization [facility] Address [address] [place] [address]. [place], [place] [id number] [place] [id number] Care Team Providers Care Upper Trimmer Name Role Phone None, Provider Primary Care Provider Unavaila ble Encounter Details Date Type Department Care Team (Latest Contact Info) Description 05/06/2021 Travel Social History Tobacco Use Types Packs/Day Years Used Date Smoking Tobacco: Never Assessed Sex and Gender Information Value Date Recorded Sex Assigned at Not on file Legal Sex Male 10:06 AM CDT Gender Identity Not on file Sexual Orientation Not on file COVID-19 Exposure Response Date Recorded In the last month, have you been in contact with someone who was confirmed or suspected to have Coronavirus / COVID-19? No / Unsure 05/06/2021 10:08 AM CDT documented as of this encounter Plan of Treatment Not on file documented as of this encounter Visit Diagnoses Not on filedocumented in this encounter Care Teams Upper Trimmer Relationship Specialty Start Date End Date None, Provider, PCP - General 05/06/21 documented as of this encounter
--- OUTSIDE RECORDS SUMMARY | 2024-07-16 17:05 | XMS_ITS | Encounter Summary ---
Author Organization [facility] Address [address] [place] [address]. [place] [address] [place] [address] Care Team Providers Care Quality System Manager Name Role Phone None, Provider Primary Care Provider Unavaila ble Encounter Details Date Type Department Care Team (Late st Contact Info) Description 05/06/2021 10:17 AM CDT - 05/06/2021 11:59 PM CDT Hospital Encounter [facility] [place], [place] [address] Angel Kimball MD [address] [facility] [address] [place] [address] Discharge Disposition: Home or Self Care (Routine Discharge) Social History Tobacco Use Types Packs/Day Years [...] on file documented as of this encounter Procedures Procedure Name Priority Date/Time Associated Diagnosis Comments XR SCOLIOSIS Routine 05/06/2021 10:46 AM CDT Lumbar stenosis with neurogenic claudication XR LUMB SP+FLEX+EXT MIN 4V Routine 05/06/2021 10:46 AM CDT Lumbar stenosis with neurogenic claudication documented in this encounter Results * XR LUMB SP+FLEX+EXT MIN 4V (05/06/2021 10:46 AM CDT) Anatomical Region Laterality Modality Spine Radiographic Kathy ging 05/08/2021 7:49 AM CDT Impressions 05/08/2021 7:57 AM CDT DISCUSSION and IMPRESSION: Standing AP, neutral lateral, flexion lateral, and extension lateral views of the lumbar spine. 5 lumbar vertebral bodies. Moderate leftward curvature lumbar spine with apex at L2-3 level. Diffuse at least moderate degenerative changes of the lower thoracic spine and lumbar spine. Bulky hypertrophic osteophytes along the right side of the L2-L4 vertebral bodies. Moderate-sized osteophytes along the left side of the L4 and L5 vertebral bodies. Disc space narrowing at all lumbar levels with vacuum disc at least at L2-3 level. Facet degenerative changes greatest at L5-S1 and L4-5 level. No appreciable listhesis on lateral views although somewhat limited evaluation due to spinal curvature, degenerative changes, and body habitus. Wedge compression deformity of T12 with approximately 20% loss of vertebral body height. Postoperative changes consistent with lower abdominal/pelvic wall hernia repair. Atherosclerotic calcification within the aorta and iliac arteries. Referred By: ANGEL KIMBALL Interpreted By: Donavan Graf, 05/08/2021 7:49 AM Narrative 05/08/2021 7:57 AM CDT IMAGING STUDIES: XR LUMB SP+FLEX+EXT MIN 4V ? DATE: ??05/06/2021 10:26 AM HISTORY: ??pain ? 70-year-old male with lumbar stenosis and neurogenic claudication. COMPARISON: ??Scoliosis series 05/06/2021. Procedure Note Donavan Graf MD - 05/08/2021 IMAGING STUDIES: XR LUMB SP+FLEX+EXT MIN 4VDATE: 05/06/2021 10:26 AM HISTORY: pain 70-year-old male with lumbar stenosis and neurogenicclaudication. COMPARISON: Scoliosis series 05/06/2021. DISCUSSION and IMPRESSION: Standing AP, neutral lateral, flexion lateral, and extension lateral viewsof the lumbar spine. 5 lumbar vertebral bodies. Moderate leftward curvature lumbar spine withapex at L2-3 level. Diffuse at least moderate degenerative changes of the lower thoracic spineand lumbar spine. Bulky hypertrophic osteophytes along the right side ofthe L2-L4 vertebral bodies. Moderate-sized osteophytes along the left sideof the L4 and L5 vertebral bodies. Disc space narrowing at all lumbarlevels with vacuum disc at least at L2-3 level. Facet degenerative changesgreatest at L5-S1 and L4-5 level. No appreciable listhesis on lateral views although somewhat limitedevaluation due to spinal curvature, degenerative changes, and bodyhabitus. Wedge compression deformity of T12 with approximately 20% loss ofvertebral body height. Postoperative changes consistent with lower abdominal/pelvic wall herniarepair. Atherosclerotic calcification within the aorta and iliac arteries. Referred By: ANGEL KIMBALL Interpreted By: Donavan Graf, 05/08/2021 7:49 AM us Angel Kimball MD GENERAL IMAGING Final Result * XR SCOLIOSIS (05/06/2021 10:46 AM CDT) Anatomical Region Laterality Modality Spine Radiographic Kathy ging 05/08/2021 7:57 AM CDT Impressions 05/08/2021 8:04 AM CDT IMPRESSION: Rightward curvature lower thoracic spine and leftward curvature lumbar spine. Referred By: ANGEL KIMBALL Interpreted By: Donavan Graf, 05/08/2021 7:57 AM Narrative 05/08/2021 8:04 AM CDT IMAGING STUDIES: XR SCOLIOSIS ? DATE: ??05/06/2021 10:26 AM HISTORY: ??pain ?70-year-old male with lumbar stenosis and neurogenic claudication. COMPARISON: ??Lumbar spine with flexion and extension views 05/06/2021. DISCUSSION: Standing views from the cervical spine to sacrum acquired with fusion of the images to obtain composite frontal and lateral views. Kyphotic curvature of the thoracic spine. Rightward spinal curvature with apex at the T11-T12 level. Approximately 11 degrees of curvature between superior T10 and inferior L1. Leftward spinal curvature with apex at the L2-L3 level. Approximately 25 degrees of curvature between superior L1 and inferior L4. Procedure Note Donavan Graf MD - 05/08/2021 IMAGING STUDIES: XR SCOLIOSISDATE: 05/06/2021 10:26 AM HISTORY: pain 70-year-old male with lumbar stenosis and neurogenicclaudication. COMPARISON: Lumbar spine with flexion and extension views 05/06/2021. DISCUSSION: Standing views from the cervical spine to sacrum acquired with fusion ofthe images to obtain composite frontal and lateral views. Kyphotic curvature of the thoracic spine. Rightward spinal curvature with apex at the T11-T12 level. Approximately 11 degrees of curvature between superior T10 and inferiorL1. Leftward spinal curvature with apex at the L2-L3 level. Approximately 25 degrees of curvature between superior L1 and inferiorL4. IMPRESSION: Rightward curvature lower thoracic spine and leftward curvature lumbarspine. Referred By: ANGEL KIMBALL Interpreted By: Donavan Graf, 05/08/2021 7:57 AM us Angel Kimball MD GENERAL IMAGING Final Result documented in this encounter Visit Diagnoses Diagnosis Lumbar stenosis with neurogenic claudication Spinal stenosis, lumbar region, with neurogenic claudication documented in this encounter Care Teams Quality System Manager Relationship Specialty Start Date End Date None, Provider, PCP - General 05/06/21 documented as of this encounter
--- OUTSIDE RECORDS SUMMARY | 2024-07-16 17:05 | XMS_ITS | Encounter Summary ---
Author Organization [facility] Address [address] [place] [address] Phone Care Team Providers Care Advertising Supervisor Name Role Phone Yas Marques MD Primary Care [facility] Reason for Visit * Reason Comments Urinary Pain Encounter Details Date Type Department Care Team (Late st Contact Info) Description 04/17/2021 12:40 PM CDT Urgent Care Visit [facility] [place] [address] [place] [address] Kimberly Alberto APRN, EMAIL SPECIALIST [address] [place] [address] Acute cystitis with hematuria (Primary Dx); Dysuria Discharge Disposition: Discharged to home or Selfcare Social History Tobacco Use Types Packs/Day Years [...] Job Start Date Job End Date Retired [employer] Not on file Not on file Not on file works part- time [employer] Not on file Not on file Not on file COVID-19 Exposure Response Date Recorded In the last month, have you been in contact with someone who was confirmed or suspected to have Coronavirus / COVID-19? No / Unsure 04/17/2021 12:37 PM CDT documented as of this encounter Last Filed Vital Signs Vital Sign Reading Time Taken Comments Blood Pressure 132/86 04/17/2021 1:45 PM CDT Pulse 68 04/17/2021 1:45 PM CDT Temperature 36.4 ??C (97.5 ??F) 04/17/2021 1:45 PM CD T Respiratory Rate 16 04/17/2021 1:45 PM CDT Oxygen Saturation 95% 04/17/2021 1:45 PM CDT Inhaled Oxygen Concentration - - Weight 95.3 kg (210 lb) 04/17/2021 1:45 PM CDT Height - - Body Mass Index 30.13 02/25/2018 1:00 PM CDT documented in this encounter Patient Instructions * Patient Instructions* Kimberly Alberto APN, EMAIL SPECIALIST - 04/17/2021 12:40 PM CDT Images from the original note were not included. Bladder Infection,??Male (Adult) You have a bladder infection. Urine is normally free of bacteria. But bacteria can get into the urinary tract from the skin around the rectum. Or it may travel in the blood from other parts of the body. This is called a urinary tract infection (UTI). An infection can occur anywhere in the urinary tract. It could be in a kidney (pyelonephritis) or in the bladder (cystitis) and urethra (urethritis). The urethra is the tube that drains urine from the bladder through the tip of the penis. The most common place for a UTI is in the bladder. This is called a bladder infection. Most bladderinfections are easily treated. They are not serious unless the infection spreads up to the kidney. The terms bladder infection, UTI, and cystitis are often used to describe the same thing. But they aren???t always the same. Cystitis is an inflammation of the bladder. The most common cause of cystitis is an infection.?? Keep in mind: ?? Infections in the urine are called UTIs. ?? Cystitis is often caused by a UTI. ?? Not all UTIs and cases of cystitis are bladder infections. ?? Bladder infections are the most common type of cystitis. Symptoms of a bladder infection The infection causes inflammation in the urethra and bladder. This inflammation causes many of the symptoms. The most common symptoms of a bladder infection are: ?? Pain or burning when urinating ?? Having to go more often than normal ?? Feeling like you need to go??right away ?? Only a small amount of urine comes out ?? Blood in urine ?? Discomfort in your belly (abdomen), often in the lower belly, above the pubic bone ?? Cloudy, strong, or bad-smelling urine ?? Unable to urinate (retention) ?? Urinary incontinence ?? Fever ?? Loss of appetite Older adults may also feel confused. Causes of a bladder infection Bladder infections are not contagious. You can't get one from someone else, from a toilet seat, or from sharing a bath. The most common cause of bladder infections is bacteria from the bowels. The bacteria get onto the skin around the opening of the urethra. From there they can get into the urine and travel up to the bladder. This causes inflammation and an infection. This often happens because of: ?? An enlarged prostate ?? Poor cleaning of the genitals ?? Procedures that put a tube in your bladder, such as a Peters catheter ?? Bowel incontinence ?? Older age ?? Not emptying your bladder (the urine stays there, giving the bacteria a chance to grow) ?? Dehydration (this lets urine to stay in the bladder longer) ?? Constipation (this can cause the bowels to push on the bladder or urethra and keep the bladder from emptying) Treatment Bladder infections are treated with antibiotics. They often clear up quickly without complications.Treatment helps prevent a more serious kidney infection. Medicines Medicines can help in treating a bladder infection: ?? You may have been given phenazopyridine to ease burning when you urinate. It will cause your urine to be bright orange. It can stain clothing. ?? You may have been prescribed antibiotics. Take this medicine until you have finished it, even ifyou feel better. Taking all of the medicine will make sure the infection has cleared. You can use acetaminophen or ibuprofen for pain,??fever, or discomfort, unless another medicine wasprescribed. You can also alternate them, or use both together. They work differently and are a different class of medicines, so taking them together is not an overdose.??If you have chronic liver or kidney disease, talk with your healthcare provider before using these medicines. Also talk with yourprovider if you???ve had a stomach ulcer or GI (gastrointestinal) bleeding or are taking blood thinner medicines. Home care Here are some guidelines to help you care for yourself at home: ?? Drink plenty of fluids, unless your healthcare provider told you not to. Fluids will prevent dehydration and flush out your bladder. ?? Use good personal hygiene. Wipe from front to back after using the toilet, and clean your penis regularly. If you aren???t circumcised, retract the foreskin when cleaning. ?? Urinate more often, and don???t try to hold it in for long periods of time, if possible. ?? Wear loose-fitting clothes and cotton underwear. Don't wear tight-fitting pants. This helps keepyou clean and dry. ?? Change your diet to prevent constipation. This means eating more fresh foods and more fiber, andless junk and fatty foods. ?? Don't have sex until your symptoms are gone. ?? Don't have caffeine, alcohol, and spicy foods. These can irritate the bladder. Follow-up care Follow up with your healthcare provider, or as advised, if all symptoms have not cleared up in 5 days. It's important to keep your follow-up appointment. You can talk with your provider to see if youneed more tests of the urinary tract.??This is especially important if you have infections that keep coming back. If a culture was done, you will be told if your treatment needs to be changed. If directed, you cancall??to find out the results. If X-rays were taken, you will be told of any findings that may affect your care. Call 911 Call 911 if any of these occur: ?? Trouble breathing ?? Trouble waking up ?? Feeling confused ?? Fainting or loss of consciousness ?? Fast heart rate When to get medical advice Call your healthcare provider right away??if any of these occur: ?? Fever of 100.4??F (38??C) or higher, or as directed by your provider ?? Your symptoms don???t improve after 2 days of treatment ?? Back or belly pain that gets worse ?? Repeated vomiting, or you aren???t able to keep medicine down ?? Weakness or dizziness Antonio last reviewed this educational content on 04/25/2019 ?? [id number] [employer]. All rights reserved. This information is not intended as a substitute for professional medical care. Always follow your healthcare professional's instructions. Urine culture was sent to lab today. It can take up to 3 days for results to return. We will notifyyou if a change in antibiotic needs to be made. If symptoms do not improve with treatment or symptoms return after completion of antibiotic you will need to follow up with your PCP. Complete course of medication as prescribed. Increase fluid intake. See PCP if no better in 48 hours. Have urine re checked after treatment. Go to ER if symptoms worsen, or fever develops. documented in this encounter Progress Notes * Dayana Fletcher CMA - 04/17/2021 12:40 PM CDT Patient complains of dysuria and dark brown urine since yesterday. * Kimberly Alberto APN, CNP - 04/17/2021 12:40 PM CDT Subjective: Chief complaint, ROS, and all history documented by ancillary staff, and any copy/pasted information were reviewed and verified, with additions or corrections, as appropriate. Available past family, social, medical history was reviewed. Francis Jain is a 70 y.o. male in the clinic for UTI symptoms. Started 1 day ago. No fevers. Review of Systems Constitutional: Negative for fever. Genitourinary: Positive for dysuria and hematuria. Objective: Physical Exam Vitals and nursing note reviewed. Constitutional: General: He is not in acute distress. Cardiovascular: Rate and Rhythm: Normal rate. Pulmonary: Effort: Pulmonary effort is normal. Breath sounds: Normal breath sounds. Abdominal: Tenderness: There is no right CVA tenderness or left CVA tenderness. Neurological: Mental Status: He is alert. Vitals: 04/17/21 1345 BP: 132/86 BP Location: Right Arm BP Position: Sitting BP Cuff Size: Regular Pulse: 68 Resp: 16 Temp: 97.5 ??F (36.4 ??C) TempSrc: Tympanic SpO2: 95% Weight: 210 lb (95.3 kg) Assessment and Plan See Diagnoses, Orders, Follow-up, and Instructions Diagnoses and all orders for this visit: Dysuria - POCT UA AUTOMATED W/O MICRO - CULTURE, URINE; Future - CULTURE, URINE Acute cystitis with hematuria - sulfamethoxazole-trimethoprim DS (BACTRIM DS, SEPTRA DS) 800-160 MG Tablet; Take 1 Tablet by mouth 2 times daily for 7 days. Urine culture was sent to lab today. It can take up to 3 days for results to return. We will notifyyou if a change in antibiotic needs to be made. If symptoms do not improve with treatment or symptoms return after completion of antibiotic you will need to follow up with your PCP. Complete course of medication as prescribed. Increase fluid intake. See PCP if no better in 48 hours. Have urine re checked after treatment. Go to ER if symptoms worsen, or fever develops. AVS from today was printed, discussed with patient/family and given to patient/family documented in this encounter Plan of Treatment Not on file documented as of this encounter Procedures Procedure Name Priority Date/Time Associated Diagnosis Comments CULTURE, URINE Routine 04/17/2021 1:53 PM CDT Dysuria POCT UA AUTOMATED W/O MICRO Routine 04/17/2021 1:40 PM CDT Dysuria documented in this encounter Results * CULTURE, URINE (04/17/2021 1:53 PM CDT) CULTURE RESULTS MIXED GROWTH OF ONE OR MORE DISTAL URETHRAL CONTAMINANTS 04/18/2021 3:54 PM CDT [facility] Culture URINE SPECIMEN / Unknown Non-Phlebotomy Collection / Unknown 04/17/2021 1:53 PM CDT 04/17/2021 1:53 PM CDT Kimberly Alberto APRN, CNP MICROBIOLOGY - GE NERAL ORDERABLES Final Result [facility] [address] [place] [address], [place] * (ABNORMAL) POCT UA AUTOMATED W/O MICRO (04/17/2021 1:40 PM CDT) POC UA SPECIFIC GRAVITY 1.015 URINE PH 7.0 5.0 - 9.0 UR, LEUKOCYTES Tr (25 Obdulio/uL)(A) Negative Obdulio/uL UR, NITRITE Negative Negative UR, PROTEIN Trace(A) Negative mg/dL UR, GLUCOSE Normal Normal mg/dL UR, KETONE Negative Negative mg/dL UR, UROBILINOGEN Normal Normal mg/dL UR, BILIRUBIN Negative Negative mg/dL UR. BLOOD 2+ (250 Erasmo/uL)(A) Negative URINALYSIS COLOR Dark Yellow URINALYSIS CLARITY Cloudy Urine 04/17/2021 1:40 PM CDT Kimberly Alberto APRN, CNP POINT OF CARE HUSAM RIOS (MANUAL) Final Result documented in this encounter Visit Diagnoses Diagnosis Acute cystitis with hematuria- Primary Acute cystitis Dysuria documented in this encounter Additional Health Concerns Assessment Noted Time PHQ-9 Depression Total Score: 0 10/03/19 17 8:00 AM BRIM SHAPER documented as of this encounter Care Teams Advertising Supervisor Relationship Specialty Start Date End Date Yas Marques MD [address] [place] [address] PCP - General Family Medicine 02/21/18 documented as of this encounter
--- OUTSIDE RECORDS SUMMARY | 2024-07-16 17:05 | XMS_ITS | Clinical Summary ---
Author Organization [facility] Address [address] [place] [address]. [place], [place] [address] [place] [address] Care Team Providers Care Seamer Elastic Band Name Role Phone None, Provider MD Primary Care Provider Unavaila ble Social History Tobacco Use Types Packs/Day Years Used Date Smoking Tobacco: Never Assessed Sex and Gender Information Value Date Recorded Sex Assigned at Not on file Legal Sex Male 10:06 AM CDT Gender Identity Not on file Sexual Orientation Not on file Plan of Treatment Health Maintenance Due Date Last Done Comments Colorectal Cancer Screening Colonoscopy (10 Years) 1950 Hepatitis C 09/29/1967 Zoster Vaccines (1 of 2) 09/29/1999 RSV Immunization or 60+ Years (1 - 1-dose 60+ series) 2009 DTaP, Tdap and Td Vaccines (1 - Tdap) 04/26/2011 04/25/2011 Annual Medicare Wellness Visit 2014 COVID-19 Vaccine ( season) 2024 09/18/2020, 08/28/2020 Influenza Adult (#1) 2024 05/02/2020, 05/03/2019, 04/23/2016, Additional history exists Pneumococcal Vaccine: 65+ Years Completed 11/23/2016, 07/02/2015 Meningococcal Vaccine Aged Out No enrique antonette eligible based on patient's age to complete this topic RSV Immunizations Under 20 Months Aged Out No longer eligible based on patient's age to complete this topic Insurance [address] [address] MEDICARE Care Teams Seamer Elastic Band Relationship Specialty Start Date End Date None, Provider, PCP - General 05/06/21
--- OUTSIDE RECORDS SUMMARY | 2024-07-16 17:07 | XMS_ITS | Encounter Summary ---
Author Organization [facility] Address [address] [place] [address] Care Team Providers Care Surgical Oncologist Name Role Phone Radha Devlin MD Primary Care Provider Encounter Details Date Type Department Care Team (Late st Contact Info) Description 09/10/2023 External Device Data [facility] ABSTRACTION Provider, Abstract NO ADDRESS ON FILE Social History Tobacco Use Types Packs/Day Years Used Date Smoking Tobacco: Every Day Cigarettes Smokeless Tobacco: Never Alcohol Use Standard Drinks/Week Comments Yes 0 (1 standard drink = 0.6 oz pur e alcohol) Sex and Gender Information Value Date Recorded Sex Assigned at Not on file Gender Identity Not on file Sexual Orientation Not on file documented as of this encounter Plan of Treatment Not on file documented as of this encounter Visit Diagnoses Not on filedocumented in this encounter Care Teams Surgical Oncologist Relationship Specialty Start Date End Date Radha Devlin MD [address] [place] [address] PCP - General Family Practice 03/08/23 documented as of this encounter
--- OUTSIDE RECORDS SUMMARY | 2024-07-16 17:07 | XMS_ITS | Encounter Summary ---
Author Organization [facility] Address [address] [place] [address] Care Team Providers Care Remote Sensing Surveyor Name Role Phone Radha Devlin MD Primary Care Provider [phone] Encounter Details Date Type Department Care Team (Late st Contact Info) Description 09/13/2023 External Device Data STL ABSTRACTION Provider, Abstract [...] on filedocumented in this encounter Care Teams Remote Sensing Surveyor Relationship Specialty Start Date End Date Radha Devlin MD [address] [place] [address] PCP - General Family Practice 03/08/23 documented as of this encounter
--- OUTSIDE RECORDS SUMMARY | 2024-07-16 17:07 | XMS_ITS | Encounter Summary ---
Author Organization [facility] Address [address] [place] [address] Care Team Providers Care Size Mixer Name Role Phone Radha Devlin MD Primary Care Provider [phone] Encounter Details Date Type Department Care Team (Late st Contact Info) Description 09/30/2023 External Device Data STL ABSTRACTION Provider, Abstract [...] on filedocumented in this encounter Care Teams Size Mixer Relationship Specialty Start Date End Date Radha Devlin MD [address] [place] [address] PCP - General Family Practice 03/08/23 documented as of this encounter
--- OUTSIDE RECORDS SUMMARY | 2024-07-16 17:07 | XMS_ITS | Clinical Summary ---
Author Organization [facility] Address [address] [place] [address] Care Team Providers Care Energy Systems Laboratory Director Name Role Phone Radha Devlin MD Primary Care Provider [phone] Allergies Active Allergy Reactions Criticality Noted Date Comments Niacin Other (See Comments) 11/14/2020 Reaction: flushing, Medications Medication Sig Dispensed Refills Start Date End Date Status multivitamin with iron (DAILY MULTIPLE VITAMINS/IRON ORAL) Take 1 Tablet by mouth. Active Magnesium 250 mg Tablet Take 400 mg by mouth. Act emmett amLODIPine (NORVASC) 10 mg tablet amlodipine 10 mg tablet Active atorvastatin (LIPITOR) 80 mg tablet atorvastatin 80 mg tablet Active ezetimibe (ZETIA) 10 mg tablet ezetimibe 10 mg tablet TAKE 1 TABLET BY MOUTH EVERY DAY 04/24/2019 Active glimepiride (AMARYL) 2 mg tablet glimepiride 2 mg tablet 05/08/2019 Active lisinopriL (PRINIVIL) 20 mg tablet lisinopril 20 mg tablet Active metFORMIN (GLUCOPHAGE XR) 500 mg Extended Release 24 hour tablet metformin ER 500 mg tablet,extended release 24 hr 05/15/2019 Active sildenafiL (VIAGRA) 100 mg tablet sildenafil 100 mg tablet TAKE 1 TABLET BY MOUTH ONCE DAILY NEEDED APPROXIMATELY 1 HOUR BEFORE SEXUAL ACTIVITY 05/19/2019 Active topiramate (TOPAMAX) 25 mg tablet topiramate 25 mg tablet 05/22/2019 Active albuterol sulfate 90 mcg/Actuation inhaler 12/03/2021 Active azithromycin (ZITHROMAX) 250 mg tablet TAKE 2 TABLETS BY MOUTH ON DAY 1, AND THEN TAKE 1 TABLET BY MOUTH ONCE A DAY ON DAY 2 THROUGH DAY 5 12/23/2021 Active predniSONE (DELTASONE) 10 mg tablet 12/03/2021 Active pregabalin (LYRICA) 75 mg Capsule Take 75 mg by mouth 2 times daily. 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3 ??C (97.3 ??F) 03/08/2023 10:18 AM C DT Respiratory Rate 18 03/08/2023 10:18 AM CDT Oxygen Saturation 98% 03/08/2023 10:18 AM CDT Inhaled Oxygen Concentration - - Weight 92.5 kg (204 lb) 03/08/2023 10:18 AM CDT Height 177.8 cm (5' 10 ) 03/08/2023 10:18 AM CDT Body Mass Index 29.27 03/08/2023 10:18 AM CDT Plan of Treatment Health Maintenance Due Date Last Done Comments DIABETES ANNUAL FOOT EXAM 09/29/1967 DIABETES MICROALBUMIN ANNUAL SCREEN 09/29/1967 LDL CHOLESTEROL ANNUAL 09/29/1967 FIT-DNA Q 3 years 1994 FIT/FOBT Q 1 year 1994 Flex Sig/CT Colonography Q 5 years 1994 ZOSTER VACCINE (1 of 2) 09/29/1999 DTAP/TDAP/TD VACCINES (2 - T d or Tdap) 09/23/2016 09/23/2006 DIABETES HBA1C Q 6 MONTHS 11/18/20232022, 10/19/2022, 08/21/2021, Additional history exists INFLUENZA VACCINE (#1) 2024 9, 04/23/2016, 05/30/2015, Additional history exists DIABETES ANNUAL RETINAL EXAM 08/07/2024, 01/07/2023, 09/17/2022, Additional history exists RSV VACCINE (60+ or ) (1 - 1-dose 75+ series) 2024 COLORECTAL SCREENING 08/01/2031 08/01/2021, 08/01/2021, 03/03/2018 Colorectal Cancer Screening 08/01/2031 PNEUMOCOCCAL VACCINE 65+ YEARS Completed 11/23/2016 , 07/02/2015 Care Teams Energy Systems Laboratory Director Relationship Specialty Start Date End Date Radha Devlin MD [address] [place] [address] PCP - General Family Practice 03/08/23
--- OUTSIDE RECORDS SUMMARY | 2024-07-16 17:07 | XMS_ITS | Encounter Summary ---
Author Organization [facility] Address [address] [place] [address] Care Team Providers Care Gas Engine Mechanic Name Role Phone Radha Devlin MD Primary Care Provider [phone] Encounter Details Date Type Department Care Team (Late st Contact Info) Description 12/14/2023 External Device Data STL ABSTRACTION Provider, Abstract [...] on filedocumented in this encounter Care Teams Gas Engine Mechanic Relationship Specialty Start Date End Date Radha Devlin MD [address] [place] [address] PCP - General Family Practice 03/08/23 documented as of this encounter
--- OUTSIDE RECORDS SUMMARY | 2024-07-16 17:07 | XMS_ITS | Encounter Summary ---
Author Organization [facility] Address [address] [place] [address] Care Team Providers Care Teacher Ballet Name Role Phone Radha Devlin MD Primary Care Provider [phone] Encounter Details Date Type Department Care Team (Late st Contact Info) Description 02/29/2024 External Device Data STL ABSTRACTION Provider, Abstract [...] on filedocumented in this encounter Care Teams Teacher Ballet Relationship Specialty Start Date End Date Radha Devlin MD [address] [place] [address] PCP - General Family Practice 03/08/23 documented as of this encounter
--- OUTSIDE RECORDS SUMMARY | 2024-07-16 17:07 | XMS_ITS | Encounter Summary ---
Author Organization [facility] Address [address] [place] [address] Care Team Providers Care Rock Loader Name Role Phone Radha Devlin MD Primary Care Provider [phone] Encounter Details Date Type Department Care Team (Late st Contact Info) Description 08/18/2023 External Device Data STL ABSTRACTION Provider, Abstract [...] on filedocumented in this encounter Care Teams Rock Loader Relationship Specialty Start Date End Date Radha Devlin MD [address] [place] [address] PCP - General Family Practice 03/08/23 documented as of this encounter
--- OUTSIDE RECORDS SUMMARY | 2024-07-16 17:07 | XMS_ITS | Encounter Summary ---
Author Organization [facility] Address [address] [place] [address] Care Team Providers Care Forensic Medical Examiner Name Role Phone Radha Devlin MD Primary Care Provider [phone] Encounter Details Date Type Department Care Team (Late st Contact Info) Description 02/01/2024 External Device Data STL ABSTRACTION Provider, Abstract [...] on filedocumented in this encounter Care Teams Forensic Medical Examiner Relationship Specialty Start Date End Date Radha Devlin MD [address] [place] [address] PCP - General Family Practice 03/08/23 documented as of this encounter
--- OUTSIDE RECORDS SUMMARY | 2024-07-16 17:07 | XMS_ITS | Encounter Summary ---
Author Organization [facility] [facility] Address [address] [place] [address] Care Team Providers Care Supervisor Prop Making Name Role Phone Radha Devlin MD Primary Care Provider [phone] Encounter Details Date Type Department Care Team (Late st Contact Info) Description 11/30/2023 External Device Data STL ABSTRACTION Provider, Abstract [...] on filedocumented in this encounter Care Teams Supervisor Prop Making Relationship Specialty Start Date End Date Radha Devlin MD [address] [place] [address] PCP - General Family Practice 03/08/23 documented as of this encounter
--- OUTSIDE RECORDS SUMMARY | 2024-07-16 17:07 | XMS_ITS | Encounter Summary ---
Author Organization [facility] Address [address] [place] [address] Care Team Providers Care Switcher Name Role Phone Radha Devlin MD Primary Care Provider [phone] Encounter Details Date Type Department Care Team [...] on filedocumented in this encounter Care Teams Switcher Relationship Specialty Start Date End Date Radha Devlin MD [address] [place] [address] PCP - General Family Practice 03/08/23 documented as of this encounter
--- OUTSIDE RECORDS SUMMARY | 2024-07-16 17:07 | XMS_ITS | Encounter Summary ---
Author Organization [employer] Address [address] [place] [address] Care Team Providers Care Assistant Tennis Coach Name Role Phone Radha Devlin MD Primary Care Provider [phone] Encounter Details Date Type Department Care Team (Late st Contact Info) Description 11/10/2023 External Device Data ST[facility] ABSTRACTION Provider, Abstract [...] on filedocumented in this encounter Care Teams Assistant Tennis Coach Relationship Specialty Start Date End Date Radha Devlin MD [address] [place] [id number] PCP - General Family Practice 03/08/23 documented as of this encounter
--- OUTSIDE RECORDS SUMMARY | 2024-07-16 17:07 | XMS_ITS | Encounter Summary ---
Author Organization [employer] Address [address] [place] [address] Care Team Providers Care Ton Cylinder Inspector Name Role Phone Radha Devlin MD Primary Care Provider [phone] Encounter Details Date Type Department Care Team (Late st Contact Info) Description 11/09/2023 External Device Data STL ABSTRACTION Provider, Abstract [...] on filedocumented in this encounter Care Teams Ton Cylinder Inspector Relationship Specialty Start Date End Date Radha Devlin MD [address] [place] [id number] PCP - General Family Practice 03/08/23 documented as of this encounter
--- OUTSIDE RECORDS SUMMARY | 2024-07-16 17:07 | XMS_ITS | Encounter Summary ---
Author Organization [employer] Address [address] [place] [address] Care Team Providers Care Group Director Name Role Phone Radha Devlin MD Primary Care Provider [phone] Encounter Details Date Type Department Care Team (Late st Contact Info) Description 10/08/2023 External Device Data STL ABSTRACTION Provider, Abstract [...] on filedocumented in this encounter Care Teams Group Director Relationship Specialty Start Date End Date Radha Devlin MD [address] [place] [id number] PCP - General Family Practice 03/08/23 documented as of this encounter
--- OUTSIDE RECORDS SUMMARY | 2024-07-16 17:08 | XMS_ITS | Encounter Summary ---
Author Organization [facility] Address [address] Attn: Epic Prelude ADT DAVID MEDRANO [address] Care Team Providers Care Cooker Sulfite Name Role Phone Provider, Abstract Primary Care Provider Unavail able Encounter Details Date Type Department Care Team (Latest Contact Info) Description 06/05/2021 Travel Social History Tobacco Use Types Packs/Day [...] have Coronavirus / COVID-19? No / Unsure 06/05/2021 10:25 AM UNDER SHERIFF documented as of this encounter Plan of Treatment Not on file documented as of this encounter Visit Diagnoses Not on filedocumented in this encounter Care Teams Cooker Sulfite Relationship Specialty Start Date End Date Provider, Abstract NO ADDRESS ON FILE PCP - General 05/28/21 03/07/23 documented as of this encounter
--- OUTSIDE RECORDS SUMMARY | 2024-07-16 17:08 | XMS_ITS | Encounter Summary ---
Author Organization [facility] Address [address] Attn: Epic Prelude ADT DAVID MED[place] [address] Care Team Providers Care Mill Beam Fitter Name Role Phone Sky Campbell MD Primary Care Provider [phone] Encounter Details Date Type Department Care Team (Latest Contact Info) Description 11/14/2020 Travel Social History Tobacco Use Types Packs/Day [...] have Coronavirus / COVID-19? No / Unsure 11/14/2020 12:47 PM CDT documented as of this encounter Plan of Treatment Not on file documented as of this encounter Visit Diagnoses Not on filedocumented in this encounter Care Teams Mill Beam Fitter Relationship Specialty Start Date End Date Sky Campbell MD [address] [facility] [address] [place] [address] PCP - General Nephrology 11/14/20 04/23/21 documented as of this encounter
--- OUTSIDE RECORDS SUMMARY | 2024-07-16 17:08 | XMS_ITS | Encounter Summary ---
Author Organization [facility] Address [address] [place] [address] Care Team Providers Care Sales Operations Specialist Name Role Phone Sky Campbell MD Primary Care Provider [phone] Reason for Visit * Reason Comments Follow Up Abnormal SPEP and Im munofixation Encounter Details Date Type Department Care Team ([facility] st Contact Info) Description 11/14/2020 1:15 PM CDT Office Visit [facility] Oncology and Hematology - [place] [address] [place] [address] [facility] [address] [place] [address] Eddy Khan MD [address] [place] [address] Plasma cell disorder (Primary Dx) Social History Tobacco Use Types Packs/Day Years [...] Sign Reading Time Taken Comments Blood Pressure 140/80 11/14/2020 1:19 PM CDT Pulse 58 11/14/2020 1:19 PM CDT Temperature 36.9 ??C (98.4 ??F) 11/14/2020 1:19 PM CD T Respiratory Rate - - Oxygen Saturation 96% 11/14/2020 1:19 PM CDT Inhaled Oxygen Concentration - - Weight 100.6 kg (221 lb 11.2 oz) 11/14/2020 1:19 PM CDT Height 177.8 cm (5' 10 ) 11/14/2020 1:19 PM CDT Body Mass Index 31.81 11/14/2020 1:19 PM CDT documented in this encounter Progress Notes * Eddy Khan MD - 11/14/2020 2:07 PM CDT Hematology-oncology consult Note Requesting Physician Sky Campbell MD Primary Care Physician Sky Campbell MD Problem list There is no problem list on file for this patient. Previous TREATMENT ? Measurable Disease ? Reason for Visit Francis Jain is a 70 y.o. male who was referred for consultation for plasma cell disorder. History of present illness This is a pleasant 70-year-old male with history of type 2 diabetes hypertension and obstructive sleep apnea on CPAP machine was referred to Dr. Campbell by the primary care physician when the UA showed proteinuria. Clinically he denies any bone pain neuropathy and back pain. His weight and appetite stable. Denies any bleeding and bruising. No diarrhea and constipation. Denies any excessive tiredness and fatigue. According to the chart review patient had positive serum protein electrophoresis done that showed M spike and immunofixation showed immune of IgG kappa monoclonal band present. Past Medical History Past Medical History: Diagnosis Date ??? Diabetes mellitus ??? HTN (hypertension) ??? Hyperlipidemia ??? Stroke Surgical History Past Surgical History: Procedure Laterality Date ??? HX SPINAL SURGERY Medications Current Outpatient Medications Medication Sig Dispense Refill ??? ezetimibe (ZETIA) 10 mg tablet ezetimibe 10 mg tablet TAKE 1 TABLET BY MOUTH EVERY DAY ??? glimepiride (AMARYL) 2 mg tablet glimepiride 2 mg tablet ??? metFORMIN (GLUCOPHAGE XR) 500 mg Extended Release 24 hour tablet metformin ER 500 mg tablet,extended release 24 hr ??? sildenafiL (VIAGRA) 100 mg tablet sildenafil 100 mg tablet TAKE 1 TABLET BY MOUTH ONCE DAILY NEEDED APPROXIMATELY 1 HOUR BEFORE SEXUAL ACTIVITY ??? topiramate (TOPAMAX) 25 mg tablet topiramate 25 mg tablet ??? multivitamin with iron (DAILY MULTIPLE VITAMINS/IRON ORAL) Take 1 Tablet by mouth. ??? Magnesium 250 mg Tablet Take 400 mg by mouth. ??? amLODIPine (NORVASC) 10 mg tablet amlodipine 10 mg tablet ??? atorvastatin (LIPITOR) 80 mg tablet atorvastatin 80 mg tablet ??? HYDROcodone-acetaminophen (NORCO) 5-325 mg tablet hydrocodone 5 mg- acetaminophen 325 mg tablet ??? lisinopriL (PRINIVIL) 20 mg tablet lisinopril 20 mg tablet No current facility-administered medications for this visit. Allergies Allergies Allergen Reactions ??? Niacin Other (See Comments) Reaction: flushing, Immunizations: There is no immunization history on file for this patient. Family History No family history on file. Social History Social History Tobacco Use ??? Smoking status: Current Every Day Smoker Packs/day: 1.00 Types: Cigarettes ??? Smokeless tobacco: Never Used Substance Use Topics ??? Alcohol use: Yes Review of Systems Constitutional: No fever; no night sweats; no anorexia; no weight loss; no fatique NEENT: No headache; no change in vision; no change in hearing; no sore throat; no dysphagia Respiratory: No shortness of breath; no pleuritic chest pain; no cough; no hemoptysis Cardiac: No cardiac-like chest pain; no palpitations; no orthopnea; no PND; no OLIVO GI: No abdominal pain; no nausea; no vomiting; no diarrhea; no hematochezia; no melena : No dysuria; no frequency; no hesitancy; no hematuria HARBORMASTER: Musculosketetal: no bone pain; no arthralgia; no joint swelling; no myalgia; Skin: no pruritis; no rash; no petechiae; no ecchymoses Endocrine: no polydipsia; no polyuria; no unusual weight gain Neuro: No headache; no change in vision; no sensory changes; no muscle weakness; no confusion; no seizures Psych: no anxiety; no depression; Physical Exam Vitals: As per nursing note Constitutional: Well developed, well nourished, no acute distress, non-toxic appearance Teeth and gum. No signs of infection or swelling. Eyes: PERRL, conjunctiva normal HEENT: Atraumatic, external ears normal, nose normal, oropharynx moist, no pharyngeal exudates. no sinus tenderness Neck- normal range of motion, no tenderness, supple Respiratory: No respiratory distress, normal breath sounds, no rales, no wheezing Cardiovascular: Normal rate, normal rhythm, no murmurs, no gallops, no rubs GI: Soft, nondistended, normal bowel sounds, nontender, no splenomegaly, no hepatomegaly, no mass, no rebound, no guarding : No costovertebral angle tenderness Musculoskeletal: No edema, no tenderness, no deformities. Back- no tenderness Integument: Well hydrated, no rash, Digits and nails inspection normal Lymphatic: No lymphadenopathy noted Neurologic: Alert & oriented x 3, CN 2-12 normal, normal motor function, normal sensory function, no focal deficits noted Psychiatric: Speech and behavior appropriate ? labs No results found for this or any previous visit (from the past 24 hour(s)). Pathology ? Imaging & Other Studies Performance Status? Assessment / Plan: ? 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 Patient is a pleasant 70-year-old male with history of type 2 diabetes hypertension and obstructive sleepapnea. Patient has been followed by Dr. Campbell for proteinuria nonnephrotic range. Serum protein el ectrophoresis showed IgG kappa monoclonal band present. Clinically he is asymptomatic without any neuropathy and bone pain. Denies any weight loss. I have discussed the differential diagnosis of various plasma cell disorder including monoclonal gammopathy of unknown significance, smoldering myelomaand multiple myeloma. I will order serum protein electrophoresis with immunofixation along with serum free light chain studies and quantitative immunoglobulin. Based on the monoclonal spike we will make determination regarding bone marrow aspiration and biopsy and skeletal survey. I have answered all the questions to patient satisfaction. We will discuss the initial lab results on a video visit in 2 weeks. Type 2 diabetes. Patient is on Metformin and Amaryl. Hypertension. Patient is on amlodipine and lisinopril. Hyperlipidemia. Patient is on Lipitor. Thank you very much for allowing me to participate in Francis Jain's evaluation and management. Please feel free to contact if I can be of any further assistance in your patient???s care requiring hematology or oncology evaluation. Sincerely, ? ? Eddy Khan M.D. cell TOBACCO COUNSELING He is not a tobacco user. Eddy Khan MD ,11/14/2020 2:07 PM ? Total time spent 80 minutes, two third of the total time spent counseling patient [id number]. CC:Sky Campbell MD? documented in this encounter Plan of Treatment Scheduled Orders Name Type Priority Associated Diagnoses Orde r Schedule CBC WITH DIFFERENTIAL Lab Routine Plasma cell disorder Expected: 11/14/2020, Expires: 11/14/2021 COMPREHENSIVE METABOLIC PANEL Lab Routine Plasma cell disorder Expected: 11/14/2020, Expires: 11/14/2021 IMMUNOGLOBULINS IGG IGA IGM Lab Routine Plasma cell disorder Expected: 11/14/2020, Expires: 11/14/2021 KAPPA/LAMBDA, FREE LIGHT CHAINS Lab Routine Plasma cell disorder Expected: 11/14/2020, Expires: 11/14/2021 PROTEIN ELECTROPHORESIS W/REFLEX,SERUM Lab Routine Plasma cell disorder Expected: 11/14/2020, Expires: 11/14/2021 documented as of this encounter Visit Diagnoses Diagnosis Plasma cell disorder- Primary Other specified disease of white blood cells documented in this encounter Care Teams Sales Operations Specialist Relationship Specialty Start Date End Date Sky Campbell MD [address] [facility] [address] [place] [address] PCP - General Nephrology 11/14/20 04/23/21 documented as of this encounter
--- OUTSIDE RECORDS SUMMARY | 2024-07-16 17:08 | XMS_ITS | Continuity of Care Document ---
Author Organization [facility] Address [address] [place] [address] Phone Care Team Providers Care Restaurant Area Manager Name Role Phone Frantz Steele MD Unavailable Unavailable Allergies, Adverse Reactions, Alerts Substance Reaction Status Criticality No Known Drug Allergies Active No I nformation Procedures Procedure Date Office/outpatient visit,emma, mod 2011 Drain/inject intermed joint/bursa Depo Medrol Methylprednisolone 40 MG inj X-ray exam elbow, 3+ views Advance Directives Directive Yes / No Effective Date File Name Resuscitation Not Answered N/A N/A Life Support Not Answered N/A N/A Intubation Not Answered N/A N/A Antibiotics Not Answered N/A N/A IV Fluid Support Not Answered N/A N/A Tube Feed Not Answered N/A N/A Other Directive N/A N/A WARNING:The information contained in this section is historical and is provided for information only and does not constitute a legal document or any assurance that the information is still accurate. Please verify the information with the zepeda of the legal document before using it for clinical purposes. Encounters Encounter Description Practice Location Reason(s) For Visit Diagnoses Date Provider Providers Copied on Encounter Office/outpa tient visit,est, mod [facility], [address] [place], [place] [address], [id number], tel:[phone] [facility] LATERAL EPICONDYLITISLOC OSTEOARTH NOS-UP/ARMJOINT PAIN-UP/ARM [address], [place], [place], [id number] , [place]. tel: [phone] Family History Family Member Type Diagnosis Age At Onset No Information Payers Payer name Insurance type Covered green party ID Jm leiva(s) [facility] [id number] Social History Type Description Quantity Date Captured Comments Alcohol Use Details Unknown Caffeine Use Details Unknown Tobacco Use Status No Information Smoking Status Smoker, current stat unknown Smoking Tobacco Use Details Cigarette: No Details Available Cigarette: No Details Available Sex Male Vital Signs Date / Time: Height Weight BMI Pulse Rate Blood Pressure Temperature Respiratory Rate Body Surface Area Head Circumference Head Circ. Percentile Wt./Arjun. Percentile BMI percentile Pulse Ox Inhaled Ox 10:30 AM 70.00 in 104.326 kg (230.00 lbs) 33.0 0 kg/m eter (2) 172/105 mm[Hg] Chief Complaint And Reason For Visit No Information Reason For Referral Reason For Referral No Information Plan Of Treatment Date Type Action Status Goal Tobacco cessation counseling completed History Of Present Illness Encounter Date Complaint History Of Prese nt Illness No Information Functional Status Date Functional Assessmen t No Information Instructions Date Instruction Additional Infor mation No Information Assessments Type Assessment Date No Information Patient Care Teams Name Effective Dates (start - stop) Status Members No Information
--- OUTSIDE RECORDS SUMMARY | 2024-07-16 17:08 | XMS_ITS | Encounter Summary ---
Author Organization [facility] Address [address] [place] [phone] Phone Care Team Providers Care Public Defender Name Role Phone Yas Marques MD Primary Care Provider [phone] Encounter Details Date Type Department Care Team (Late st Contact Info) Description 07/03/2019 9:30 AM TELECINE OPERATOR Office Visit [facility] Nephrology and Hypertension [address] [place] [address], [address] [place] [address] Sky Campbell MD [address] [facility], [address] [place] [address] Other proteinuria; Type 2 diabetes mellitus without complication ([facility]); Essential (primary) hypertension; Obstructive sleep apnea syndrome Social History Tobacco Use Types Packs/Day Years Used Date Smoking Tobacco: Heavy Smoker Smokeless Tobacco: Never Tobacco Cessation:Ready to Q uit: No; Counseling Given: Yes Alcohol Use Standard Drinks/Week Comments Yes 0 (1 standard drink = 0.6 oz pur e alcohol) 1 beer socially Sex and Gender Information Value Date Recorded Sex Assigned at Not on file Gender Identity Not on file Sexual Orientation Not on file documented as of this encounter Last Filed Vital Signs Vital Sign Reading Time Taken Comments Blood Pressure 136/80 07/03/2019 9:35 AM TELECINE OPERATOR Pulse - - Temperature 36.8 ??C (98.3 ??F) 07/03/2019 9:35 AM CS T Respiratory Rate 18 07/03/2019 9:35 AM TELECINE OPERATOR Oxygen Saturation - - Inhaled Oxygen Concentration - - Weight 102 kg (224 lb) 07/03/2019 9:35 AM TELECINE OPERATOR Height 177.8 cm (5' 10 ) 07/03/2019 9:35 AM TELECINE OPERATOR Body Mass Index 32.14 07/03/2019 9:35 AM TELECINE OPERATOR documented in this encounter Progress Notes * Sky Campbell MD - 07/03/2019 9:30 AM CST NEW PATIENT CONSULTATION Patient: Francis Jain Birthdate: 1950 Referring Provider: Yas Marques MD PCP: Yas Marques MD Visit Date: 07/03/2019 CHIEF COMPLAINT Proteinuria HISTORY OF PRESENT ILLNESS Francis Jain is a 68 y.o. male with a past medical history as outlined below who presents for further evaluation of microalbuminuria. The patient recently saw his primary care physician for routine follow-up of his chronic medical issues and problems. Laboratory testing done At that time demonstrate evidence of microalbumin in his urine. Because this was a change in comparison to his previous testing, renal referral/consultation was requested for further evaluation of this issue. From review of his records, the patient has several risk factors for microalbuminuria/proteinuria: diabetes for 15 years, hypertension for 15 years, obstructive sleep apnea for at least 10 years, coronary artery disease, and his extensive smoking history. No reported issues with congestive heart failure, liver disease, peripheral vascular disease, or autoimmune disorders. He has no history of recent hospitalizations, IV contrast/dye exposure, or new medications with regard to NSAIDs or antibiotics. He reports no issues with hematuria, dysuria, nephrolithiasis, CVA/flank pain or trauma, foamy urine, frequent urinary tract infections, or urinary incontinence. He denies any other systemic issues/symptoms with regard to fevers, chills, blurry vision, headaches, abdominal pain, nausea, vomiting, diarrhea, chest pain, shortness of breath, palpitations, dizziness, or lightheadedness. Currently, on this clinic visit, he seems to be doing well. PAST MEDICAL HISTORY Diagnosis ??? Diabetes mellitus (CMS-HCC) ??? Hyperlipidemia ??? Hypertension ??? Migraine ??? Obstructive sleep apnea syndrome ??? Proteinuria ??? TIA ALLERGIES No Known Allergies MEDICATIONS Current Outpatient Medications: ??? amLODIPine (NORVASC) 10 MG tablet, Take 10 mg by mouth daily , Disp: , Rfl: ??? atorvastatin (LIPITOR) 80 MG tablet, Take 80 mg by mouth daily, Disp: , Rfl: ??? Blood Glucose Monitoring Suppl (ONE TOUCH ULTRA 2) w/Device kit, 1 Device daily, Disp: , Rfl: ??? lisinopril (PRINIVIL,ZESTRIL) 20 MG tablet, Take 20 mg by mouth daily, Disp: , Rfl: ??? ezetimibe (ZETIA) 10 MG tablet, Take 10 mg by mouth 1 (one) time each day, Disp: , Rfl: 2 ??? glimepiride (AMARYL) 2 MG tablet, Take 2 mg by mouth 1 (one) time each day, Disp: , Rfl: 1 ??? Magnesium 250 MG tablet, Take 400 mg by mouth daily, Disp: , Rfl: ??? metFORMIN XR (GLUCOPHATE-XR) 500 MG 24 hr tablet, TAKE 2 TABLET BY MOUTH EVERY DAY WITH THE EVENING MEAL, Disp: , Rfl: 1 ??? sildenafil (VIAGRA) 100 MG tablet, TAKE 1 TABLET BY MOUTH ONCE DAILY NEEDED APPROXIMATELY 1 HOUR BEFORE SEXUAL ACTIVITY, Disp: , Rfl: 11 ??? topiramate (TOPAMAX) 25 MG tablet, Take 50 mg by mouth 2 (two) times a day, Disp: , Rfl: 3 SOCIAL HISTORY Tobacco Use ??? Smoking status: Heavy Tobacco Smoker ??? Smokeless tobacco: Never Used Substance Use Topics ??? Alcohol use: Yes - 1 beer socially ??? Drug use: Never FAMILY HISTORY Problem Relation ??? Cancer Mother ??? Diabetes Brother ??? Diabetes Paternal Grandmother REVIEW OF SYSTEMS Constitutional: No fever, weight loss or gain, no fatigue. No loss of appetite. Eyes: No sudden change in vision, eye pain, or light sensitivity ENMT: No ringing in ear, no nasal drainage. Cardiovascular: No chest pain. No Orthopnea, PND. Respiratory: No cough, no sputum production, no SOB or OLIVO. GI: No abdominal pain. No tenderness or masses. : No dysuria or gross hematuria. No frequency or urgency. No nocturia. Musculoskeletal: No weakness, cramps, or muscle aches. No joint pain. Skin: No rash or itching. Neurologic: No weakness, tingling, or numbness in extremities. No seizures. Psychiatric: Not depressed, no suicidal ideation, generally satisfied with life. Endocrine: No excessive thirst or hunger. Not excessively hot or cold. Hematologic: No abnormal bruising or bleeding. Immunologic: No seasonal allergy/hay fever, no abnormal rashes, no excessive itching. VITALS BP 136/80 (BP Location: Right arm, Patient Position: Sitting) Temp 98.3 ??F (36.8 ??C) Resp 18 Ht 5' 10 (1.778 m) Wt 224 lb (102 kg) BMI 32.14 kg/m?? BSA 2.24 m?? PHYSICAL EXAM Head: Atraumatic, normocephalic Eyes: PERRLA, anicteric sclerae, moist conjuntivae ENMT: Moist mucous membranes, no oral lesions or exudates Neck: Supple, no tenderness or masses Cardiovascular: Normal S1, S2; no rub Respiratory: Clear bilaterally Abdominal: Soft, non-tender, non-distended; positive bowel sounds Skin: No rash, bruising, or excoriations Extremities: No cyanosis, clubbing, or edema Functional: Comfortable and in no acute distress Cognitive: Cranial nerves 2-12 intact, no focal musculoskeletal or sensory deficits noted Psychological: Appropriate affect, alert and oriented to person, place and time RECENT LABS/IMAGES Lab Results Component Value Date BUN 18 11/24/2018 CREATININE 0.85 11/24/2018 EGFRAA 103 11/24/2018 EGFR 89 11/24/2018 NA 137 11/24/2018 K 3.9 11/24/2018 CL 105 11/24/2018 CO2 25 11/24/2018 CA 9.0 11/24/2018 ALBUMIN 4.2 11/24/2018 GLUCOSE 125 11/24/2018 HGBA1C 6.8 11/24/2018 Lab Results Component Value Date CHOL 133 11/24/2018 TRIG 145 11/24/2018 HDL 32 11/24/2018 LDL 76 11/24/2018 ASSESSMENT AND PLAN 1. Other proteinuria 2. Type 2 diabetes mellitus without complication ([facility]) 3. Essential (primary) hypertension 4. Obstructive sleep apnea syndrome Francis has evidence of proteinuria by recent testing in May of 2019 (these tests are unavailable for review at this time). As noted above, he does have multiple risk factors for for proteinuria including diabetes, hypertension, obstructive sleep apnea, and vascular disease. However, I do not want discount the possibilitythat some other issue and/or problem may be present causing this finding. With this in mind, I will check a renal ultrasound for better assessment of the size and structure of her kidney and rule out any anatomical abnormalities, check some baseline serological studies to rule out any instrinsic, infiltrative, or inflammatory disorder, and reassess for proteinuria with a random urine protein to creatinine ratio. I will review the above results with the patient on her next clinic visit and determine our next course of action at that time. Blood Pressure for this visit is 136/80. The follow up plan to address blood pressure is follow trend. Body mass index is 32.14 kg/m??. Follow up plan to address BMI is diet/exercise. Follow up plan to address tobacco use is ongoing counseling. Thank you for allowing me to participate in the care of your patient. Lowell Campbell MD documented in this encounter Plan of Treatment Scheduled Orders Name Type Priority Associated Diagnoses Orde r Schedule Total Protein w/ Creatinine, Urine, Random Lab Routine Other proteinuria 1 Occurrences starting 07/03/2019 until 07/03/2020 documented as of this encounter Procedures Procedure Name Priority Date/Time Associated Diagnosis Comments EOSINOPHIL, URINE Routine 08/28/2019 9:4 2 AM TELECINE OPERATOR Other proteinuria RENAL FUNCTION PANEL (RFP) Routine 08/28/2019 9:42 AM TELECINE OPERATOR Other proteinuria ANCA SCREEN W/ MPO AND PR3 W/ REFLEX TO TITER Routine 08/28/2019 9:42 AM TELECINE OPERATOR Other proteinuria COMPLEMENT C3 + C4 Routine 08/28/2019 9: 42 AM TELECINE OPERATOR Other proteinuria PROTEIN ELECTROPHORESIS, URINE, RANDOM Routine 08/28/2019 9:42 AM TELECINE OPERATOR Other proteinuria GLOMERULAR BASEMENT MEMBRANE ANTIBODY (IGG), SERUM Routine 08/28/2019 9:42 AM TELECINE OPERATOR Other proteinuria DSDNA AB, SERUM Routine 08/28/2019 9:42 AM TELECINE OPERATOR Other proteinuria ANTINUCLEAR ANTIBODIES (UZMA), IFA W/ REFL TITER AND PATTERN Routine 08/28/2019 9:42 AM TELECINE OPERATOR Other proteinuria PROTEIN ELECTROPHORESIS, SERUM Routine 08/28/2019 9:42 AM TELECINE OPERATOR Other proteinuria RENAL FUNCTION PANEL (RFP) Routine 11/24/2018 LIPID PANEL Routine 11/24/2018 HEMOGLOBIN A1C Routine 11/24/2018 documented in this encounter Results * (ABNORMAL) ANTINUCLEAR ANTIBODIES (UZMA), IFA W/ REFL TITER AND PATTERN (08/28/2019 9:42 AM TELECINE OPERATOR) UZMA, Serum POSITIVE(A) NEGATIVE [facility] ([facility]) Comment: UZMA IFA is a first line screen for detecting the presence of up to approximately 150 autoantibodies in various autoimmune diseases. A positive UZMA IFA result is suggestive of autoimmune disease and reflexes to titer and pattern. Further laboratory testing may be considered if clinically indicated. For additional information, please refer to http://education.2CODE Online/faq/CJN353 (This link is being provided for informational/ educational purposes only.) ?? UZMA, Serum 1:1280(H) titer [facility]) Comment: ?Reference Range ?<1:40 ?Negative ?1:40-1:80 ?Low Antibody Level ?>1:80 ?Elevated Antibody Level UZMA Pattern, Serum Nuclear, Homogeneous (A) [facility] ([facility]) Comment: Homogeneous pattern is associated with systemic lupus erythematosus (SLE), drug-induced lupus and juvenile idiopathic arthritis. AC-1: Homogeneous International Consensus on UZMA Patterns (https://doi.org/10.1515/sbdi-8679-3497) UZMA, Serum CANCELED titer [facility]) Comment:Result canceled by rona stark. UZMA Pattern, Serum CANCELED Q [facility] Comment:Result canceled by t barb ancillary. UZMA, Serum CANCELED titer [facility]) Comment:Result canceled by t barb ancillary. UZMA Pattern, Serum CANCELED Q [facility] Comment:Result canceled by t barb ancillary. Blood (Blood, Venous) 08/28/2019 9:42 AM TELECINE OPERATOR 08/28/2019 9:43 AM TELECINE OPERATOR Narrative [facility] ([facility]) - 08/31/2019 9:57 AM TELECINE OPERATOR FASTING:NO FASTING: NO Resulting Agency Comment Performing Organization Information: ?Site ID: [place] ?Name: [facility] ?Address: [facility] [place] [address] ?Director: Augustus Giron D.O. MPH Sky Campbell MD LAB BLOOD ORDERABLES [facility] ([facility]) * (ABNORMAL) PROTEIN ELECTROPHORESIS, SERUM (08/28/2019 9:42 AM TELECINE OPERATOR) Protein, Serum/Plasma 7.1 6.1 - 8.1 g/dL [facility]) Albumin, Serum/Plasma 4.0 3.8 - 4.8 g/dL [facility]) Alpha 1 globulin, Serum/Plasma 0.3 0.2 - 0.3 g/dL [facility]) Alpha 2 globulin, Serum/Plasma 0.8 0.5 - 0.9 g/dL [facility]) Beta 1 globulin, Serum/Plasma 0.5 0.4 - 0.6 g/dL [facility]) Beta 2 globulin, Serum/Plasma 0.3 0.2 - 0.5 g/dL [facility]) Gamma globulin, Serum/Plasma 1.2 0.8 - 1.7 g/dL [facility]) Protein, monoclonal band 1, Serum/Plasma 0.7(H) NONE DETECTED g/dL [facility]) Protein, monoclonal band 2, Serum/Plasma CANCELED NONE DETECTED g/dL [facility]) Comment:Result canceled by t barb ancillary. Protein, monoclonal band 3, Serum/Plasma CANCELED NONE DETECTED g/dL [facility]) Comment:Result canceled by t barb ancillary. Protein Fractions, Serum/Plasma [facility]) Comment: Restricted band (M-spike) migrating in the gamma region. Consider serum immunofixation to rule out a monoclonal protein if clinically indicated. Blood (Blood, Venous) 08/28/2019 9:42 AM TELECINE OPERATOR 08/28/2019 9:43 AM TELECINE OPERATOR Narrative [facility] ([facility]) - 08/31/2019 9:57 AM TELECINE OPERATOR FASTING:NO FASTING: NO Resulting Agency Comment Performing Organization Information: ?Site ID: [place] ?Name: [facility] ?Address: [facility] [place] [address] ?Director: Augustus Giron D.O., MPH Sky Campbell MD LAB BLOOD ORDERABLES [facility] ([facility] * (ABNORMAL) PROTEIN ELECTROPHORESIS, URINE, RANDOM (08/28/2019 9:42 AM TELECINE OPERATOR) Creatinine, Urine 83 20 - 320 mg/dL [facility]) Protein/Creatinine, Urine 217(H) 22 - 128 mg/g creat [facility]) Protein/Creatinine, Urine 0.217(H) 0.022 - 0.128 mg/mg creat [facility]) Protein, Urine 18 5 - 25 mg/dL [facility]) Albumin/Protein, total 68 % [facility]) Alpha 1 globulin/Protein, total 5 % [facility]) Alpha 2 globulin/Protein, total 5 % [facility]) Beta globulin/Protein, total 11 % [facility]) Gamma globulin/Protein, total 11 % [facility]) Protein, monoclonal, Urine CANCELED NONE DETECTED mg/dL [facility]) Comment:Result canceled by t he ancillary. Protein, monoclonal band 2, Urine CANCELED NONE DETECTED mg/dL [facility] ([facility]) Comment:Result canceled by t he ancillary. Protein, monoclonal band 3, Urine CANCELED NONE DETECTED mg/dL [facility] ([facility]) Comment:Result canceled by t he ancillary. Protein Fractions, Urine [facility] ([facility]) Comment: Agarose electrophoresis of urine reveals albumin and various globulin fractions. ??No abnormal protein is observed. Urine (Urine, Clean Catch) 08/28/2019 9:42 AM TELECINE OPERATOR 08/28/2019 9:43 AM TELECINE OPERATOR Narrative [facility] ([facility] - 08/31/2019 9:57 AM TELECINE OPERATOR FASTING:NO FASTING: NO Resulting Agency Comment Performing Organization Information: ?Site ID: [place] ?Name: [facility] ?Address: [address] [place] [address] ?Director: Augustus Giron D.O., MPH Sky Campbell MD LAB URINE ORDERABLES [facility] ([facility]) * GLOMERULAR BASEMENT MEMBRANE ANTIBODY (IGG), SERUM (08/28/2019 9:42 AM TELECINE OPERATOR) Basement membrane IgG Ab, Serum <1.0 <1.[address] [facility]) Comment: Interpretation: ? < 1.0 AI No Antibody Detected > OR = 1.0 AI Antibody Detected Blood (Blood, Venous) 08/28/2019 9:42 AM TELECINE OPERATOR 08/28/2019 9:43 AM TELECINE OPERATOR Narrative [facility] ([facility]) - 08/31/2019 9:57 AM TELECINE OPERATOR FASTING:NO FASTING: NO Resulting Agency Comment Performing Organization Information: ?Site ID: [id number] ?Name: [facility], ?Address: [address] [place] [id number] ?Director: Kristin Smith MD,PhD,TERRY Sky Campbell MD LAB BLOOD ORDERABLES Performing Organization Address [facility] Co de Phone Number [facility] ([facility]) * EOSINOPHIL, URINE (08/28/2019 9:42 AM TELECINE OPERATOR) Eosinophils/100 leukocytes, Urine sediment 0 See Note: % eos [facility] ([facility]) Comment: Reference Range: Reference Range Not established Few WBC seen. No eosinophils noted. Urine (Urine, Clean Catch) 08/28/2019 9:42 AM TELECINE OPERATOR 08/28/2019 9:43 AM TELECINE OPERATOR Narrative [facility] ([facility]) - 08/31/2019 9:57 AM TELECINE OPERATOR FASTING:NO FASTING: NO Resulting Agency Comment Performing Organization Information: ?Site ID: [place] ?Name: [facility] ?Address: [address] [place] [address] ?Director: Augustus Giron D.O., MPH Sky Campbell MD LAB BLOOD ORDERABLES Performing Organization Address [facility] Co de Phone Number [facility] ([facility]) * DSDNA AB, SERUM (08/28/2019 9:42 AM TELECINE OPERATOR) Pathologist [facility] DNA double strand Ab, Serum 2 IU/mL [facility] ([facility]) Comment: ? IU/mL ? Interpretation ? < or = 4 ?Negative ? 5-9 ? Indeterminate ? > or = 10 ?? Positive Blood (Blood, Venous) 08/28/2019 9:42 AM TELECINE OPERATOR 08/28/2019 9:43 AM TELECINE OPERATOR Narrative [facility] ([facility]) - 08/31/2019 9:57 AM TELECINE OPERATOR FASTING:NO FASTING: NO Resulting Agency Comment Performing Organization Information: ?Site ID: [place] ?Name: [facility] ?Address: [address] [place] [address] ?Director: Augustus Giron D.O., MPH Sky Campbell MD LAB BLOOD ORDERABLES [facility] ([facility]) * COMPLEMENT C3 + C4 (08/28/2019 9:42 AM TELECINE OPERATOR) [facility] Complement C3, Serum/Plasma 157 82 - 185 mg/dL [facility] ([facility]) Complement C4, Serum/Plasma 36 15 - 53 mg/dL [facility] ([facility]) Blood (Blood, Venous) 08/28/2019 9:42 AM TELECINE OPERATOR 08/28/2019 9:43 AM TELECINE OPERATOR Narrative [facility] ([facility]) - 08/31/2019 9:57 AM TELECINE OPERATOR FASTING:NO FASTING: NO Resulting Agency Comment Performing Organization Information: ?Site ID: [place] ?Name: [facility] ?Address: [address] [place] [address] ?Director: Augustus Giron D.O., MPH Sky Campbell MD LAB BLOOD ORDERABLES [employer] ([facility]) * ANCA SCREEN W/ MPO AND PR3 W/ REFLEX TO TITER (08/28/2019 9:42 AM TELECINE OPERATOR) Neutrophil Cytoplasmic Ab (ANCA), Serum Negative Negative [employer] ([facility]) Comment: ANCA Screen includes evaluation for p-ANCA, c-ANCA and atypical p-ANCA. A positive ANCA screen reflexes to titer and pattern(s), e.g., cytoplasmic pattern (c-ANCA), perinuclear pattern (p-ANCA), or atypical p-ANCA pattern. c-ANCA and p-ANCA are observed in vasculitis, whereas atypical p-ANCA is observed in IBD (Inflammatory Bowel Disease). Atypical p-ANCA is detected in about 55% to 80% of patients with ulcerative colitis but only 5% to 25% of patients with Crohn's disease. ? Antinuclear antibody (UZMA) was also detected in this sample. ??To verify the presence of UZMA and determine its titer and pattern, the test for UZMA performed by indirect immunofluorescence (IFA) on HEp-2 cells may be ordered. Myeloperoxidase Ab, Serum <1.0 <1.[address] [facility] ([facility]) Comment: ? Value ?? Interpretation ?<1.0 AI: No Antibody Detected ? >or=1.0 AI: Antibody Detected Autoantibodies to myeloperoxidase (MPO) are commonly associated with the following small-vessel vasculitides: microscopic polyangiitis, polyarteritis nodosa, Churg-Sander syndrome, necrotizing and crescentic glomerulonephritis and occasionally granulomatosis with polyangiitis (GPA, Meenakshi's). The perinuclear IFA pattern, (p-ANCA) is based largely on autoantibody to myeloperoxidase which serves as the primary antigen. These autoantibodies are present in active disease. Proteinase 3 Ab, Serum <1.0 <1.0 AI [facility] - [facility] ([facility]) Comment: ?Value ?Interpretation ?<1.0 AI: No Antibody Detected ? >or=1.0 AI: Antibody Detected Autoantibodies to proteinase-3 (WI-3) are accepted as characteristic for granulomatosis with polyangiitis (GPA, Meenakshi's), and are detectabale in 95% of the histologically proven cases. The cytoplasmic IFA pattern, (c-ANCA), is based largely on autoantibody to WI-3 which serves as the primary antigen. These autoantibodies are present in active disease. Blood (Blood, Venous) 08/28/2019 9:42 AM TELECINE OPERATOR 08/28/2019 9:43 AM TELECINE OPERATOR Narrative [facility] - [facility] ([facility]) - 08/31/2019 9:57 AM TELECINE OPERATOR FASTING:NO FASTING: NO Resulting Agency Comment Performing Organization Information: ?Site ID: [place] ?Name: [facility] [place] ?Address: [address] [place] [address] [place] ?Director: Tito Harman M.D.,PhD Sky Campbell MD LAB BLOOD ORDERABLES [facility] ([facility]) * (ABNORMAL) Renal Function Panel (RFP) (08/28/2019 9:42 AM TELECINE OPERATOR) [facility] Glucose, Serum/Plasma 142(H) 65 - 139 mg/dL [facility] Comment: ? Non-fasting reference interval Urea nitrogen, Serum/Plasma (BUN) 16 7 - 25 mg/dL [facility]) Creatinine, Serum/Plasma 0.90 0.70 - 1.25 mg/dL [facility] ([facility]) Comment: For patients >49 years of age, the reference limit for Creatinine is approximately 13% higher for people identified as -Macedonian. eGFR, non 87 > OR = 60 mL/min/1 .73m2 [facility]) eGFR, 101 > OR = 60 mL/min/1 .73m2 [facility] ([facility]) Urea nitrogen/Creatini ne, Serum/Plasma NOT APPLICABLE 6 - 22 (calc) [facility]. [facility] [place] ([facility]) Sodium, Serum/Plasma 142 135 - 146 mmol/L [facility]) Potassium, Serum/Plasma 4.2 3.5 - 5.3 mmol/L [facility]) Chloride, Serum/Plasma 107 98 - 110 mmol/L [facility]) Carbon dioxide CO2), total, Serum/Plasma 26 20 - 32 mmol/L [facility]) Calcium, Serum/Plasma 9.3 8.6 - 10.3 mg/dL [facility] [place] ([facility]) Phosphate, Serum/Plasma 3.2 2.1 - 4.3 mg/dL [facility] [place] ([facility]) Albumin, Serum/Plasma 4.4 3.6 - 5.1 g/dL [facility] [place] ([facility]) Blood (Blood, Venous) 08/28/2019 9:42 AM TELECINE OPERATOR 08/28/2019 9:43 AM TELECINE OPERATOR Narrative [facility] [place] ([facility]) - 08/31/2019 9:57 AM TELECINE OPERATOR FASTING:NO FASTING: NO Resulting Agency Comment Performing Organization Information: ?Site ID: [place] ?Name: [facility] ?Address: [address] [place] [address] ?Director: Augustus Giron D.O., MPH Sky Campbell MD LAB BLOOD ORDERABLES Performing Organization Address [facility]/ZIP Co de Phone Number [facility] ([facility]) * Renal Function Panel (RFP) (11/24/2018) Albumin, Serum/Plasma 4.2 g/L [facility] (NON-INTERFACE D) Calcium, Serum/Plasma 9.0 mg/dL [facility] (NON-INTERFACE D) Carbon dioxide CO2), total, Serum/Plasma 25 mmol/L [facility] (NON-INTERFACE D) Chloride, Serum/Plasma 105 mmol/L [facility] (NON-INTERFACE D) Creatinine, Serum/Plasma 0.85 mg/dL EXTERNAL LAB (NON-INTERFACE D) Glucose, Serum/Plasma 125 mg/dL EXTERNAL LAB (NON-INTERFACE D) Potassium, Serum/Plasma 3.9 mmol/L EXTERNAL LAB (NON-INTERFACE D) Sodium, Serum/Plasma 137 mmol/L EXTERNAL LAB (NON-INTERFACE D) Urea nitrogen, Serum/Plasma (BUN) 18 mg/dL EXTERNAL LAB (NON-INTERFACE D) eGFR, non 89 mL/min EXTERNAL LAB (NON-INTERFACE D) eGFR, 103 mL/min EXTERNAL LAB (NON-INTERFACE D) Blood (Blood, Venous) Historical Provider LAB BLOOD ORDERAB LES EXTERNAL LAB (NON-INTERFACED) * Lipid Panel (11/24/2018) Cholesterol, LDL, Serum/Plasma 76 mg/dL EXTERNAL LAB (NON-INTERFACE D) Cholesterol, Serum/Plasma 133 mg/dL EXTERNAL LAB (NON-INTERFACE D) Cholesterol, HDL, Serum/Plasma 32 mg/dL EXTERNAL LAB (NON-INTERFACE D) Triglyceride, Serum/Plasma 145 mg/dL EXTERNAL LAB (NON-INTERFACE D) Blood (Blood, Venous) Historical Provider MD LAB BLOOD ORDERAB LES EXTERNAL LAB (NON-INTERFACED) * Hemoglobin A1c, Serum (11/24/2018) Hemoglobin A1c/Hemoglobin, total, Blood 6.8 % EXTERNAL LAB (NON-INTERFACE D) Blood (Blood, Venous) Historical Provider MD LAB BLOOD ORDERAB LES EXTERNAL LAB (NON-INTERFACED) documented in this encounter Visit Diagnoses Diagnosis Other proteinuria Type 2 diabetes mellitus without complication (CMS-HCC) Essential (primary) hypertension Obstructive sleep apnea syndrome documented in this encounter Care Teams Public Defender Relationship Specialty Start Date End Date Yas Marques MD [address] [facility] [address] [facility] [address] [place] [address] PCP - General Internal Medicine 07/03/19 10/13/20 documented as of this encounter
--- OUTSIDE RECORDS SUMMARY | 2024-07-16 17:08 | XMS_ITS | Encounter Summary ---
Author Organization [facility] Address [address] [place] [address] Care Team Providers Care Route Driver Salesperson Name Role Phone Sky Campbell MD Primary Care Provider [phone] Encounter Details Date Type Department Care Team (Late st Contact Info) Description 11/26/2020 Orders Only [facility] Oncology and Hematology - Serafin [address] [place] [address] Perla Gonzalez Plasma cell disorder Social History Tobacco Use Types Packs/Day Years [...] this encounter Visit Diagnoses Diagnosis 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
--- OUTSIDE RECORDS SUMMARY | 2024-07-16 17:08 | XMS_ITS | Encounter Summary ---
Author Organization [facility] [employer] [facility] Address [address] [place] [address] Care Team Providers Care Threader Name Role Phone Sky Campbell MD Primary Care Provider Reason for Visit * Reason Comments Follow Up 2 week F/U with labs Encounter Details Date Type Department Care Team ([facility] st Contact Info) Description 12/03/2020 8:30 AM CDT [facility] On[facility] - [place]af[place] [address] [place] [address] [address] [place] [address] Eddy Khan MD [address] [facility] [address] [place] [address] Plasma cell disorder (Primary Dx); MGUS (monoclonal gammopathy of unknown significance) Social History Tobacco Use Types Packs/Day Years [...] have Coronavirus / COVID-19? No / Unsure 12/03/2020 8:15 AM CDT documented as of this encounter Last Filed Vital Signs Vital Sign Reading Time Taken Comments Blood Pressure 123/60 12/03/2020 8:24 AM CDT Pulse 61 12/03/2020 8:24 AM CDT Temperature 36.7 ??C (98 ??F) 12/03/2020 8:24 AM CDT Respiratory Rate - - Oxygen Saturation 96% 12/03/2020 8:24 AM CDT Inhaled Oxygen Concentration - - Weight 100.5 kg (221 lb 9.6 oz) 12/03/2020 8:24 AM CDT Height 177.8 cm (5' 10 ) 12/03/2020 8:24 AM CDT Body Mass Index 31.8 12/03/2020 8:24 AM CDT documented in this encounter Progress Notes * Eddy Khan MD - 12/03/2020 9:47 AM CDT HEMATOLOGY / ONCOLOGY PROGRESS NOTE Patient Identification: Name: Francis Jain Age: 70 y.o. Sex: male : 1950 DIAGNOSIS Monoclonal gammopathy of unknown significance CURRENT TREATMENT Surveillance TREATMENT HISTORY SUBJECTIVE Patient came into the office for follow-up visit. He denies any bone pain. Weight and appetite stable. No other new complaints. Review of system Constitutional: denies fevers, sweats, fatigue, malaise, weight loss HEENT: denies sinus congestion, hearing or vision problems Respiratory: denies cough, dyspnea, wheeze Cardiovascular: denies chest pain, exertional chest pressure/discomfort, nausea, syncope, shortnessof breath GI: denies constipation, diarrhea, dsyphagia, reflux symptoms, vomiting, melena : denies dysuria, frequency, incontinence, urgency Integumentary system: no lymphadenopathy, sweats, flushing Musculoskeletal: denies: myalgia, arthralgia Neurological: denies blurry or disturbed vision, numbness/weakness, dizziness Skin: No lumps, bumps or rashes. Objective: Vital signs in last 24 hours: As per nursing note Exam: General appearance: alert, cooperative, no distress, appears stated age Head: normocephalic, without obvious abnormality, atraumatic Eyes: conjunctivae/corneas clear, EOM's intact Ears: normal external ear canals AU Nose: Nares normal. Septum midline. Mucosa normal. No drainage or sinus tenderness Throat: Lips, mucosa, and tongue normal. Teeth and gums normal Neck: supple, symmetrical, trachea midline. Lungs: clear to auscultation bilaterally Heart: regular rate and rhythm, S1, S2 normal, no murmur, click, rub or gallop Abdomen: soft, non-tender. Bowel sounds normal. No masses, No organomegaly Extremities: extremities normal, atraumatic, no cyanosis or edema Skin: Skin color, texture, turgor normal. No rashes or lesions Lymph nodes: No lymphadenopathy Neuro: No obvious focal deficit PATH LABS Labs from November 25, 2020 showed creatinine 0.97 calcium 9.3 serum protein electrophoresis showed abnormal M spike of 0.7 g/dL IgA 178 IgG 1096 IgM 114 kappa light chain 30.4 lambda light chain 18.9 ratio was 1.6 hemoglobin 15.5 platelet 1 98,000 WBC 8.4. @IMAGEIMP@ Assessment: Plan: Patient Active Problem List Diagnosis Date Noted ??? 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 Repeat serum protein electrophoresis with immunofixation showed monoclonal spike of 0.7 g/dL. Patient is asymptomatic and no need for bone marrow biopsyand skeletal survey at this time. I plan to see him back in 6 months with repeat labs. Type 2 diabetes. Patient is on Metformin and Amaryl. Hypertension. Patient is on amlodipine and lisinopril. ? TOBACCO COUNSELING He is not a tobacco user. 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
--- OUTSIDE RECORDS SUMMARY | 2024-07-16 17:08 | XMS_ITS | Encounter Summary ---
Author Organization [facility] Address [address] [place] [address] Phone Care Team Providers Care Outside Installation Machinist Name Role Phone Rehan Thompson MD Primary Care Provider [phone] Encounter Details Date Type Department Care Team (Late st Contact Info) Description 10/14/2020 1:15 PM CDT Office Visit [facility] Nephrology and Hypertension [address] [place] [address], [address] [place] [address] Sky Campbell MD [facility] [address] [place] [address] Other proteinuria; Diabetes mellitus with renal manifestations ([facility]); Essential (primary) hypertension Social History Tobacco Use Types Packs/Day Years [...] Sign Reading Time Taken Comments Blood Pressure 134/74 10/14/2020 1:18 PM CDT Pulse - - Temperature 36.7 ??C (98 ??F) 10/14/2020 1:18 PM CDT Respiratory Rate 18 10/14/2020 1:18 PM CDT Oxygen Saturation - - Inhaled Oxygen Concentration - - Weight 100 kg (221 lb) 10/14/2020 1:18 PM CDT Height 177.8 cm (5' 10 ) 10/14/2020 1:18 PM CDT Body Mass Index 31.71 10/14/2020 1:18 PM CDT documented in this encounter Progress Notes * Sky Campbell MD - 10/14/2020 1:15 PM CDT FOLLOW-UP OFFICE VISIT Patient: Francis Jain Birthdate: 1950 PCP: Yas Marques MD Visit Date: 10/14/2020 INTERIM HISTORY Francis Jain here for follow-up regarding his proteinuria. It has been almost a year since his last appointment. He seems to be feeling relatively well since I last saw him. No apparent distress or concerns expressed at this time. No issues or problems conveyed on this clinic visit. Past medical history, social history and family history has not changed since previous visit. ALLERGIES No Known Allergies MEDICATIONS Current Outpatient Medications: ??? amLODIPine (NORVASC) 10 MG tablet, Take 10 mg by mouth daily , Disp: , Rfl: ??? atorvastatin (LIPITOR) 80 MG tablet, Take 80 mg by mouth daily, Disp: , Rfl: ??? Blood Glucose Monitoring Suppl (ONE TOUCH ULTRA 2) w/Device kit, 1 Device daily, Disp: , Rfl: ??? ezetimibe (ZETIA) 10 MG tablet, Take 10 mg by mouth 1 (one) time each day, Disp: , Rfl: 2 ??? glimepiride (AMARYL) 2 MG tablet, Take 2 mg by mouth 1 (one) time each day, Disp: , Rfl: 1 ??? hydroCHLOROthiazide (HYDRODIURIL) 12.5 MG tablet, hydrochlorothiazide 12.5 mg tablet, Disp: , Rfl: ??? HYDROcodone-acetaminophen (NORCO) 5-325 MG per tablet, hydrocodone 5 mg- acetaminophen 325 mg tablet, Disp: , Rfl: ??? lisinopril (PRINIVIL,ZESTRIL) 20 MG tablet, Take 20 mg by mouth daily, Disp: , Rfl: ??? Magnesium 250 MG tablet, Take 400 mg by mouth daily, Disp: , Rfl: ??? metFORMIN XR (GLUCOPHATE-XR) 500 MG 24 hr tablet, TAKE 2 TABLET BY MOUTH EVERY DAY WITH THE EVENING MEAL, Disp: , Rfl: 1 ??? predniSONE (DELTASONE) 20 MG tablet, prednisone 20 mg tablet, Disp: , Rfl: ??? sildenafil (VIAGRA) 100 MG tablet, TAKE 1 TABLET BY MOUTH ONCE DAILY NEEDED APPROXIMATELY 1 HOUR BEFORE SEXUAL ACTIVITY, Disp: , Rfl: 11 ??? topiramate (TOPAMAX) 25 MG tablet, Take 50 mg by mouth 2 (two) times a day, Disp: , Rfl: 3 REVIEW OF SYSTEMS Constitutional: No fever, weight loss or gain, no fatigue. No loss of appetite. Cardiovascular: No chest pain. No Orthopnea, PND. Respiratory: No cough, no sputum production, no SOB or OLIVO. : No dysuria or gross hematuria. No frequency or urgency. No nocturia. Skin: No rash or itching. VITALS BP 134/74 (BP Location: Right arm, Patient Position: Sitting) Temp 98 ??F (36.7 ??C) Resp 18 Ht 5' 10 (1.778 m) Wt 221 lb (100 kg) BMI 31.71 kg/m?? BSA 2.22 m?? PHYSICAL EXAM General: Comfortable and in no acute distress Cardiovascular: Normal S1, S2; no rub Respiratory: Clear bilaterally Abdominal: Soft, non-tender, non-distended; positive bowel sounds Extremities: No cyanosis, clubbing, or edema Skin: Warm and dry RECENT LABS/IMAGING Lab Results Component Value Date BUN 21 08/09/2020 CREATININE 0.99 08/09/2020 EGFRAA 89 08/09/2020 EGFR 77 08/09/2020 NA 143 08/09/2020 K 4.3 08/09/2020 CL 109 08/09/2020 CO2 23 08/09/2020 CA 9.2 08/09/2020 PHOSPHATE 3.3 08/09/2020 ALBUMIN 4.3 08/09/2020 GLUCOSE 120 (H) 08/09/2020 PROTCREATUR 194 (H) 08/09/2020 PROTCREATUR 0.194 (H) 08/09/2020 HGBA1C 6.8 11/24/2018 Component Value Date PROTEINFRACT Restricted band (M-spike) migrating in the gamma region 08/28/2019 UPEP No M-spike 08/28/2019 IFEINTERP No monoclonal immunoglobulin detected. 01/03/2020 INTERPGYN IgG kappa monoclonal band present. 01/03/2020 08/17/19 Renal U/S: right kidney 12.3cm, left kidney 12.7cm; no hydronephrosis and probable left nephrolithiasis ASSESSMENT 1. Other proteinuria 2. Diabetes mellitus with renal manifestations ([facility]) 3. Essential (primary) hypertension PLAN Francis has proteinuria but is not in the nephrotic range. This is most likely secondary to his diabetes, hypertension, obstructive sleep apnea, and vascular disease. His initial evaluation demonstrates a normal renal ultrasound, negative serologies with the exception of a postive UZMA (but normal dsDNA-ab and complements arguing against lupus), and a positive SPEP(+ M-spike -- immunofixation with IgG kappa monoclonal band present), and approximately 217mg of proteinuria in association with normal renal function. We discussed the ways to minimize spillage of protein: a. Low protein diet - discussed b. control of hypertension - reasonable c. control of cholesterol - on zetia d. use of CAPRICE/ARB - on lisinopril e. achievement of ideal body weight The lack of extrarenal manifestations and lack of progression of protein and worsening of kidney function leads me to hold off on kidney biopsy at this time. However, we will continue to monitor all those parameters as well as continue to keep proteinuria to a minimum. Blood Pressure for this visit is 134/74. The follow up plan to address blood pressure is follow thetrend. Body mass index is 31.71 kg/m??. Follow up plan to address BMI is diet/exercise. Follow up plan to address tobacco use is ongoing counseling. Continue current medications Repeat labs prior to next visit Hem/Onc referral regarding abnormal SPE + immunofixation S. Guicho Campbell MD documented in this encounter Plan of Treatment Scheduled Orders Name Type Priority Associated Diagnoses Orde r Schedule Renal Function Panel (RFP) Lab Routine Other proteinuria Diabetes mellitus with renal manifestations ([facility]) Essential (primary) hypertension Expected: 03/16/2021, Expires: 10/14/2021 Total Protein w/ Creatinine, Urine, Random Lab Routine Other proteinuria Diabetes mellitus with renal manifestations ([facility]) Essential (primary) hypertension Expected: 03/16/2021, Expires: 10/14/2021 documented as of this encounter Visit Diagnoses Diagnosis Other proteinuria Diabetes mellitus with renal manifestations ([facility]) Essential (primary) hypertension documented in this encounter Care Teams Outside Installation Machinist Relationship Specialty Start Date End Date Rehan Thompson MD [address] [facility] [address] [facility] [address] [place] [address] PCP - General Family Medicine 10/14/20 documented as of this encounter
--- OUTSIDE RECORDS SUMMARY | 2024-07-16 17:08 | XMS_ITS | Encounter Summary ---
Author Organization [facility] Address [address] [place] [phone] Phone Care Team Providers Care Regional Controller Name Role Phone Yas Marques MD Primary Care Provider [phone] Encounter Details Date Type Department Care Team (Late st Contact Info) Description 08/09/2020 Orders Only [facility] Nephrology and Hypertension [facility], [address] [address] Sky Campbell MD [facility], [address] [place] [address] Social History Tobacco Use Types Packs/Day Years Used Date Smoking Tobacco: Heavy Smoker Smokeless Tobacco: Never Alcohol Use Standard Drinks/Week [...] Procedure Name Priority Date/Time Associated Diagnosis Comments TOTAL PROTEIN W/ CREATININE, URINE, RANDOM Routine 08/09/2020 8:13 AM HOSE SPRAYER RENAL FUNCTION PANEL (RFP) Routine 08/09/2020 8:13 AM HOSE SPRAYER documented in this encounter Results * (ABNORMAL) Total Protein w/ Creatinine, Urine, Random (08/09/2020 8:13 AM HOSE SPRAYER) Creatinine, Urine 93 20 - 320 mg/dL [facility] ([facility]) Protein/Creati nine, Urine 194(H) 22 - 128 mg/g creat [facility] ([facility]) Protein/Creati nine, Urine 0.194(H) 0.022 - 0.128 mg/mg creat [facility] ([facility]) Protein, Urine 18 5 - 25 mg/dL [facility] ([facility]) 08/09/2020 8:13 AM HOSE SPRAYER 08/09/2020 8:13 AM HOSE SPRAYER Narrative Resulting Agency Comment Performing Organization Information: ?Site ID: [id number] ?Name: [facility] ?Address: [facility] Neela D[place] [address] ?Director: Augustus Giron D.O., MPH Sky Campbell MD LAB URINE ORDERABLES [facility] [place] (ST) * (ABNORMAL) Renal Function Panel (RFP) (08/09/2020 8:13 AM HOSE SPRAYER) Glucose, Serum/Plasma 120(H) 65 - 99 mg/dL [facility] ([facility]) Comment: ? Fasting reference interval For someone without known diabetes, a glucose value between 100 and 125 mg/dL is consistent with prediabetes and should be confirmed with a follow-up test. Urea nitrogen, Serum/Plasma (BUN) 21 7 - 25 mg/dL [facility] ([facility]) Creatinine, Serum/Plasma 0.99 0.70 - 1.18 mg/dL [facility] ([facility]) Comment: For patients >49 years of age, the reference limit for Creatinine is approximately 13% higher for people identified as -[place]. eGFR, non 77 > OR = 60 mL/min/1 .73m2 [facility] ([facility]) eGFR, 89 > OR = 60 mL/min/1 .73m2 [facility] ([facility]) Urea nitrogen/Creatini ne, Serum/Plasma NOT APPLICABLE 6 - 22 (calc) [facility] ([facility]) Sodium, Serum/Plasma 143 135 - 146 mmol/L [facility] ([facility]) Potassium, Serum/Plasma 4.3 3.5 - 5.3 mmol/L [facility] ([facility]) Chloride, Serum/Plasma 109 98 - 110 mmol/L [facility] ([facility]) Carbon dioxide CO2), total, Serum/Plasma 23 20 - 32 mmol/L [facility] ([facility]) Calcium, Serum/Plasma 9.2 8.6 - 10.3 mg/dL [facility] ([facility]) Phosphate, Serum/Plasma 3.3 2.1 - 4.3 mg/dL [facility] ([facility]) Albumin, Serum/Plasma 4.3 3.6 - 5.1 g/dL [facility] ([facility]) 08/09/2020 8:13 AM HOSE SPRAYER 08/09/2020 8:13 AM HOSE SPRAYER Narrative Resulting Agency Comment Performing Organization Information: ?Site ID: [id number] ?Name: [facility] ?Address: [address] [place] [address] [place] [address] ?Director: Augustus Giron D.O., MPH Sky Campbell MD LAB BLOOD ORDERABLES [facility] ([facility]) documented in this encounter Visit Diagnoses Not on filedocumented in this encounter Care Teams Regional Controller Relationship Specialty Start Date End Date Yas Marques MD [address] [facility] [address] [place] [address] PCP - General Internal Medicine 07/03/19 10/13/20 documented as of this encounter
--- OUTSIDE RECORDS SUMMARY | 2024-07-16 17:08 | XMS_ITS | Encounter Summary ---
Author Organization [facility] Address [address] [place] [address] Phone Care Team Providers Care Voltmeter Operator Name Role Phone Rehan Thompson MD Primary Care Provider [phone] Encounter Details Date Type Department Care Team (Late st Contact Info) Description 10/14/2020 Telephone [facility] Nephrology and Hypertension [facility], [address] [address] Sky Campbell MD [address] [facility], [address] [facility] [place] [address] Social History Tobacco Use Types Packs/Day Years Used Date Smoking Tobacco: Heavy Smoker Smokeless Tobacco: Never Alcohol Use Standard Drinks/Week Comments Yes 0 (1 standard drink = 0.6 oz pur e alcohol) 1 beer socially Sex and Gender Information Value Date Recorded Sex Assigned at Not on file Gender Identity Not on file Sexual Orientation Not on file documented as of this encounter Miscellaneous Notes * Telephone Encounter - Blanca Herrera MA - 10/29/2020 1:28 PM CDT Pt info and referral sent to dr khan * Telephone Encounter - Sky Campbell MD - 10/14/2020 1:29 PM CDT Please refer patient to Dr. Khan ([facility]) for further evaluation of Abnormal SPEP andimmunofixation -- referral in Epic. documented in this encounter Plan of Treatment Not on file documented as of this encounter Visit Diagnoses Not on filedocumented in this encounter Care Teams Voltmeter Operator Relationship Specialty Start Date End Date Rehan Thompson MD [address] [facility] [address] [place] [address] PCP - General Family Medicine 10/14/20 documented as of this encounter
--- OUTSIDE RECORDS SUMMARY | 2024-07-16 17:08 | XMS_ITS | Continuity of Care Document ---
Author Organization [employer] [place] Address [address] [place] [address] [address] [place] [address] Phone Care Team Providers Care Raw Material Planner Name Role Phone Aden PT, DPT, She Unavailable Unavaila ble Procedures Procedure Date Therapeutic Exercise PT Re-evaluation Therapeutic Activities Neuromuscular Re-Ed Therapeutic Activities Therapeutic Exercise Neuromuscular Re-Ed Therapeutic Activities Neuromuscular Re-Ed Therapeutic Exercise Therapeutic Exercise Therapeutic Activities Hot or Cold Pack Neuromuscular Re-Ed Therapeutic Exercise Hot or Cold Pack Therapeutic Exercise Neuromuscular Re-Ed Therapeutic Exercise Neuromuscular Re-Ed Neuromuscular Re-Ed Therapeutic Exercise Hot or Cold Pack PT Evaluation Moderate Complexity Manual Therapy Neuromuscular Re-Ed Therapeutic Exercise Progress Note Therapeutic Exercise Therapeutic Activities Neuromuscular Re-Ed Therapeutic Exercise Therapeutic Activities Neuromuscular Re-Ed Manual Therapy Hot or Cold Pack Therapeutic Exercise Neuromuscular Re-Ed Manual Therapy Hot or Cold Pack Therapeutic Exercise Neuromuscular Re-Ed Manual Therapy Therapeutic Exercise Neuromuscular Re-Ed Manual Therapy Hot or Cold Pack PT Evaluation Low Complexity Therapeutic Exercise Manual Therapy Advance Directives Directive Yes / No Effective Date File Name No Information Encounters Encounter Description Practice Location Reason(s) For Visit Diagnoses Date Provider Providers Copied on Encounter [facility], [address], [place], [place], [id number], tel:[phone] [place] No Information 1 Samaniego She. . [facility], [address], [place], [place], [id number], tel:[phone] [place] No Information 1 Samaniego She. . Referring Provider: Viv [address], [place], [address]. tel:[phone] [facility] [address] [facility], [place], [place], [id number], tel:[phone] [place] No Information 1 Samaniego She. . Referring Provider: Viv [address], [place], [address]. tel:[phone] [facility] [address], [place], [place], [id number], tel:[phone] [place] No Information 1 Samaniego She. . Referring Provider: Viv [address], [place], [address]. tel:[phone] [facility], [place], [place], [id number], tel:[phone] [place] No Information 1 Ross Ya. . Referring Provider: Viv [address], [place], [address]. tel:[phone] [facility] [address], [place], [place], [id number], [place] tel:[phone] [place] No Information Sep-2 1 Samaniego She. . Referring Provider: Viv [address], [place], [address]. tel:[phone] [facility], [address], [place], [place], [id number], [place] tel:[phone] [place] No Information Sep-1 1 Scheldt Emmy. . Referring Provider: Viv [address], [place], [address]. tel:[phone] [facility], [address], [place], [place], [id number], [place] tel:[phone] [place] No Information Sep-1 1 Samaniego She. . Referring Provider: Viv [address], [place], [address]. tel:[phone] [facility] [address], [place], [place], [id number], [place] tel:[phone] [place] No Information Sep-1 0 1 Samaniego She. . Referring Provider: Viv Winter [address], [place], [address]. tel:[phone] [facility], [address], [place], [place], [id number], [place] tel:[phone] [place] No Information Sep-0 8 1 Samaniego She. . Referring Provider: Viv [address], [place], [address]. tel:[phone] [facility], [address], [place], [place], [address], [place] tel:[phone] [place] Low back painSacrococcygeal disorders, not elsewhere classifiedStiffnes s of unspecified joint, not elsewhere classified Hurd Arsh. . Referring Provider: Yas Thomas, [address], [address]. tel:[phone] [facility], [address], [place], [place], [id number], [place] tel:[phone] [place] Low back painSacrococcygeal disorders, not elsewhere classifiedStiffnes s of unspecified joint, not elsewhere classified 9 Scheldt Emmy. . Referring Provider: Yas Thomas, [address], [address]. tel:[phone] [facility], [address], [place], [place], [address], [place] tel:[phone] [place] Low back painSacrococcygeal disorders, not elsewhere classifiedStiffnes s of unspecified joint, not elsewhere classified Scheldt Emmy. . Referring Provider: Yas Thomas, [address], [address]. tel:[phone] [facility] [address], [place], [place], [address], [place] tel:[phone] [place] Low back painSacrococcygeal disorders, not elsewhere classifiedStiffnes s of unspecified joint, not elsewhere classified Vickey Caban. . Referring Provider: Yas Thomas, [address], [address]. tel:[phone] [facility], [address], [place], [place], [id number], [place] tel:[phone] [place] Low back painSacrococcygeal disorders, not elsewhere classifiedStiffnes s of unspecified joint, not elsewhere classified 9 Ross Ya. . Referring Provider: Yas Thomas, [address], [address]. tel:[phone] [facility] [place], [address], [place], [place], [address], [place] tel:[phone] [place] Low back painSacrococcygeal disorders, not elsewhere classifiedStiffnes s of unspecified joint, not elsewhere classified 9 Vickey Caban. . Referring Provider: Yas Thomas, [address] [place] [address] [address], [place], [address]. tel:[phone] Family History Family Member Type Diagnosis Age At Onset No Information Payers Payer name Insurance type Covered republican ID Authoriza tion(s) Medicare [place] MB [id number] [facility] [id number] Social History Type Description Quantity Date Captured Comments Sex Male Smoking Status No Information Chief Complaint And Reason For Visit No Information Reason For Referral Reason For Referral No Information Plan Of Treatment Date Type Action Status Goal Tobacco cessation counseling completed Goal Tobacco Cessation Counseling completed Goal Tobacco Cessation Counseling completed Goal Tobacco cessation counseling completed Referral Ordered: PCP timeframe: 1 week. (related to Overweight) ordered Referral Ordered: Weight management: Referral to physician timeframe: 1 Month. (related to Overweight) ordered History Of Present Illness Encounter Date Complaint History Of Prese nt Illness No Information Functional Status Date Functional Assessmen t No Information Instructions Date Instruction Additional Infor mation No Information Assessments Type Assessment Date No Information Patient Care Teams Name Effective Dates (start - stop) Status Members No Information
--- OUTSIDE RECORDS SUMMARY | 2024-07-16 17:08 | XMS_ITS | Encounter Summary ---
Author Organization [facility] [employer] [facility] Address [address] [place] [address] Care Team Providers Care Vat Cleaner Name Role Phone Radha Devlin MD Primary Care Provider Reason for Visit * Reason Comments Follow Up Encounter Details Date Type Department Care Team (Late st Contact Info) Description 03/08/2023 10:15 AM CDT Office Visit [facility] Oncology and Hematology - [place] [address] [place] [address] [address] [place] [address] Eddy Khan MD [address] [facility] [address] [place] [address] 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 Sex: male : 1950 DIAGNOSIS Monoclonal gammopathy of unknown significance CURRENT TREATMENT Surveillance TREATMENT HISTORY SUBJECTIVE Patient came to the office for follow-up visit. He denies any chest pain and abdominal pain. Deniesany neuropathy. Weight and appetite stable. No other new [...] no lymphadenopathy, sweats, flushing Musculoskeletal: denies: myalgia, arthralgia, denies any bone pain Neurological: denies blurry or disturbed vision, numbness/weakness, dizziness, denies any neuropathy Skin: No lumps, bumps or rashes. 12 point review system was reviewed Objective: Vital signs in last 24 hours: [...] No lymphadenopathy Neuro: No obvious focal deficit Exam as above [facility] Labs from November 25, 2020 showed creatinine 0.97 calcium 9.3 serum protein electrophoresis showed abnormal M spike of 0.7 g/dL IgA 178 IgG 1096 IgM 114 kappa light chain 30.4 lambda light chain 18.9 ratio was 1.6 hemoglobin 15.5 platelet 1 98,000 WBC 8.4. Labs from June 03 showed M spike of 0.7 g/dL creatinine 0.9 calcium 9.3 WBC 7.6 hemoglobin 15.8 platelet 202,000 Labs from February 24 showed M spike of 0.5 normal immunoglobulin level IgG kappa monoclonal band present kappa free light chain 28 with ratio 1.46 Labs from March 08 showed hemoglobin 16.2 creatinine 1.0 serum protein electrophoresis showed M spike of 0.6 g/dL kappa light chain 48 lambda light chain 23 ratio 1.74 immunoglobulin levels normal. @IMAGEIMP@ Assessment: Plan: Patient Active Problem List Diagnosis Date Noted MGUS (monoclonal gammopathy of unknown significance) 12/03/2020 Monoclonal gammopathy of unknown significance. Clinically he remains asymptomatic. Labs showed slight increase in M spike now up to 0.6 g/dL. Restof the blood including serum creatinine and hemoglobin normal. We will continue to observe and see him back on yearly basis. Hypertension. Stable on amlodipine and lisinopril. Type 2 diabetes. Patient is on metformin and Amaryl. He will continue to follow with the primary care physician. 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
--- OUTSIDE RECORDS SUMMARY | 2024-07-16 17:08 | XMS_ITS | Encounter Summary ---
Author Organization [employer] Address [address] [place] [address] Care Team Providers Care Director Of It Operations Name Role Phone Radha Devlin MD Primary Care Provider [phone] Encounter Details Date Type Department Care Team (Late st Contact Info) Description 07/29/2023 External Device Data [facility] ABSTRACTION Provider, Abstract [...] on filedocumented in this encounter Care Teams Director Of It Operations Relationship Specialty Start Date End Date Radha Devlin MD [address] [place] [address] PCP - General Family Practice 03/08/23 documented as of this encounter
--- OUTSIDE RECORDS SUMMARY | 2024-07-16 17:08 | XMS_ITS | Encounter Summary ---
Author Organization [facility] Address [address] [facility] Attn: Epic Prelude ADT DAVID [place] [address] Care Team Providers Care Balancer Name Role Phone Provider, Abstract Primary Care Provider Unavail able Encounter Details Date Type Department Care Team (Latest Contact Info) Description 03/05/2022 Travel Social History Tobacco Use Types Packs/Day [...] Exposure Response Date Recorded In the last 10 days, have yo u been in contact with someone who was confirmed or suspected to have Coronavirus/COVID-19? No / Unsure 03/05/2022 9:37 AM CDT documented as of this encounter Plan of Treatment Not on file documented as of this encounter Visit Diagnoses Not on filedocumented in this encounter Care Teams Balancer Relationship Specialty Start Date End Date Provider, Abstract NO ADDRESS ON FILE PCP - General 05/28/21 03/07/23 documented as of this encounter
--- OUTSIDE RECORDS SUMMARY | 2024-07-16 17:08 | XMS_ITS | Encounter Summary ---
Author Organization [facility] [employer] [facility] Address [address] [place] [address] Care Team Providers Care Hydro Station Supervisor Name Role Phone Radha Devlin MD Primary Care Provider [phone] Encounter Details Date Type Department Care Team ([facility] st Contact Info) Description 03/09/2023 Orders Only [facility] Oncology and Hematology - [place] [address] [facility] [address] [place] [address] Eddy Khan MD [address] [facility] [address] [place] [address] Social History Tobacco Use Types Packs/Day Years [...] Procedure Name Priority Date/Time Associated Diagnosis Comments BASIC METABOLIC PANEL Routine 03/08/2023 2:43 PM CDT documented in this encounter Results * BASIC METABOLIC PANEL (03/08/2023 2:43 PM CDT) Blood Eddy Khan MD CHEMISTRY ORDERABLES documented in this encounter Visit Diagnoses Not on filedocumented in this encounter Care Teams Hydro Station Supervisor Relationship Specialty Start Date End Date Radha Devlin MD [address] [place] [address] PCP - General Family Practice 03/08/23 documented as of this encounter
--- OUTSIDE RECORDS SUMMARY | 2024-07-16 17:08 | XMS_ITS | Encounter Summary ---
Author Organization [facility] Address [address] [facility] Attn: Epic Prelude ADT DAVID MED[place] [address] Care Team Providers Care Automotive Center Manager Name Role Phone Sky Campbell MD Primary Care Provider [phone] Encounter Details Date Type Department Care Team (Late st Contact Info) Description 11/25/2020 Orders Only Initial Department [address] JAMAN: [place] [address] Provider, Historical Social History Tobacco Use Types Packs/Day Years [...] Procedure Name Priority Date/Time Associated Diagnosis Comments IMMUNOFIXATION Routine 11/25/2020 11:58 AM CDT KAPPA/LAMBDA LIGHT CHAINS Routine 11/25/2020 11:58 AM CDT CBC WITH DIFFERENTIAL Routine 11/25/2020 11:58 AM CDT PROTEIN ELECTROPHORESIS W/REFLEX,SERUM Routine 11/25/2020 11:58 AM CDT COMPREHENSIVE METABOLIC PANEL Routine 11/25/2020 11:58 AM CDT documented in this encounter Results * CBC WITH DIFFERENTIAL (11/25/2020 11:58 AM CDT) WBC 8.4 3.8 - 10.8 Thousand/u L [facility] RBC 5.27 4.20 - 5.80 Million/uL [facility] HEMOGLOBIN 15.5 13.2 - 17.1 g/dL [facility] HEMATOCRIT 47.2 38.5 - 50.0 % [facility] MCV 89.6 80.0 - 100.0 fL [facility] MCH 29.4 27.0 - 33.0 pg [facility] MCHC 32.8 32.0 - 36.0 g/dL [facility] RDW 13.1 11.0 - 15.0 % [facility] PLATELETS 198 140 - 400 Thousand/u L [facility] MPV 9.5 7.5 - 12.5 fL [facility] NEUTROPHIL ABSOLUTE 5,006 1,500 - 7,800 cells/uL [facility] LYMPHOCYTE ABSOLUTE 2,528 850 - 3,900 cells/uL [facility] MONOCYTE ABSOLUTE 462 200 - 950 cells/uL [facility] EOSINOPHIL ABSOLUTE 311 15 - 500 cells/uL [facility] BASOPHILS ABSOLUTE 92 0 - 200 cells/uL [facility] NEUTROPHIL 59.6 % [facility] LYMPHOCYTES 30.1 % [facility] MONOCYTE 5.5 % [facility] EOSINOPHILS 3.7 % [facility] BASOPHILS 1.1 % [facility] Comment: Test Performed at: [facility] [address] [place] [address] ??[phone] Augustus Giron D.O., MPH 11/25/2020 11:5 8 AM CDT Eddy Khan MD HEMATOLOGY ORDERABLE S [facility] [address] [place] [address] * (ABNORMAL) KAPPA/LAMBDA LIGHT CHAINS (11/25/2020 11:58 AM CDT) KAPPA FREE LIGHT CHAIN 30.4(H) 3.3 - 19.4 mg/L [facility] LAMBDA FREE LIGHT CHAIN 18.9 5.7 - 26.3 mg/L [facility] KAPPA/LAMBDA LIGHT CHAIN RATIO 1.61 0.26 - 1.65 [facility] Comment: Free kappa/lambda ratio in serum of normal individuals is 0.26-1.65. Excess production of free kappa or lambda chains can alter this ratio. Monoclonal free light chains are found in serum of patients with multiple myeloma, Waldenstrom's macroglobulinemia, mu-heavy chain disease, primary amyloidosis, light chain deposition disease, monoclonal gammopathy of undetermined significance, and lymphoproliferative disorders. Measurement of free light chain concentration in serum is useful for diagnosis, prognosis, monitoring disease activity and following response to therapy of these disorders. Test Performed at: [facility] [employer] ??[phone] Augustus Giron D.O., MPH 11/25/2020 11:5 8 AM CDT Eddy Khan MD CHEMISTRY ORDERABLES Performing Organization Address [facility] Co de Phone Number [facility] [address] [place] [address] * IMMUNOFIXATION (11/25/2020 11:58 AM CDT) IMMUNOFIXATION INTERP [facility] Comment:IgG kappa monoclonal band present. IGA 178 70 - 320 mg/dL [facility] IGG 1096 600 - 1540 mg/dL [facility] IGM 114 50 - 300 mg/dL [facility] Comment: Test Performed at: [employer] ??[phone] Augustus Giron D.O., MPH 11/25/2020 11:5 8 AM CDT Eddy Khan MD CHEMISTRY ORDERABLES Performing Organization Address [facility] Co de Phone Number [facility] [address] [place] [address] * (ABNORMAL) PROTEIN ELECTROPHORESIS W/REFLEX,SERUM (11/25/2020 11:58 AM CDT) TOTAL PROTEIN 7.2 6.1 - 8.1 g/dL [facility] ALBUMIN SPE 4.0 3.8 - 4.8 g/dL [facility] ALPHA 1 GLOBULIN SPE 0.4(H) 0.2 - 0.3 g/dL [facility] ALPHA 2 GLOBULIN SPE 0.9 0.5 - 0.9 g/dL [facility] Beta 1 Globulin 0.5 0.4 - 0.6 g/dL [facility] Beta 2 Globulin 0.4 0.2 - 0.5 g/dL [facility] GAMMA GLOBULIN 1.2 0.8 - 1.7 g/dL [facility] ABNORMAL PROTEIN BAND SPE 0.7(H) NONE DETECTED g/dL [facility] SPE INTERP [facility] Comment: Restricted band (M-spike) migrating in the gamma region. Consider serum immunofixation to rule out a monoclonal protein if clinically indicated. Test Performed at: [facility] [address] [place], [place] ??[address] Augustus Giron D.O., MPH 11/25/2020 11:5 8 AM CDT Eddy Khan MD CHEMISTRY ORDERABLES [facility] [address] [place] [address] * (ABNORMAL) COMPREHENSIVE METABOLIC PANEL (11/25/2020 11:58 AM CDT) GLUCOSE 177(H) 65 - 99 mg/dL [facility] Comment: ? Fasting reference interval For someone without known diabetes, a glucose value >125 mg/dL indicates that they may have diabetes and this should be confirmed with a follow-up test. BUN 17 7 - 25 mg/dL [facility] CREATININE 0.97 0.70 - 1.18 mg/dL [facility] Comment: For patients >49 years of age, the reference limit for Creatinine is approximately 13% higher for people identified as -Belarusian. GFR 78 > OR = 60 mL/min/1 .73m2 [facility] GFR, 91 > OR = 60 mL/min/1 .73m2 [facility] BUN/CREAT RATIO NOT APPLICABLE 6 - 22 (calc) [facility] SODIUM 140 135 - 146 mmol/L [facility] POTASSIUM 4.0 3.5 - 5.3 mmol/L [facility] CHLORIDE 109 98 - 110 mmol/L [facility] CO2 21 20 - 32 mmol/L [facility] CALCIUM 9.3 8.6 - 10.3 mg/dL [facility] TOTAL PROTEIN 7.2 6.1 - 8.1 g/dL [facility] ALBUMIN 4.1 3.6 - 5.1 g/dL [facility] GLOBULIN 3.1 1.9 - 3.7 g/dL (calc) [facility] ALBUMIN/GLOBULIN RATIO 1.3 1.0 - 2.5 (calc) [facility] BILIRUBIN TOTAL 0.6 0.2 - 1.2 mg/dL [facility] ALKALINE PHOSPHATASE 85 35 - 144 U/L [facility] AST 20 10 - 35 U/L [facility] ALT 21 9 - 46 U/L [facility] Comment: Test Performed at: [employer] ??[phone] Augustus Giron D.O., MPH 11/25/2020 11:5 8 AM CDT Eddy Khan MD CHEMISTRY ORDERABLES Performing Organization Address City/State/[facility] Co de Phone Number [facility] [address] [place] [address] documented in this encounter Visit Diagnoses Not on filedocumented in this encounter Care Teams Automotive Center Manager Relationship Specialty Start Date End Date Sky Campbell MD [address] [facility] [address] [place] [address] PCP - General Nephrology 11/14/20 04/23/21 documented as of this encounter
--- OUTSIDE RECORDS SUMMARY | 2024-07-16 17:08 | XMS_ITS | Encounter Summary ---
Author Organization [employer] Address [address] [place] [address] Care Team Providers Care Anesthesiologist Assistant Certified Name Role Phone Radha Devlin MD Primary Care Provider [phone] Encounter Details Date Type Department Care Team (Late st Contact Info) Description 06/10/2023 External Device Data [facility] ABSTRACTION Provider, Abstract [...] on filedocumented in this encounter Care Teams Anesthesiologist Assistant Certified Relationship Specialty Start Date End Date Radha Devlin MD [address] [place] [address] PCP - General Family Practice 03/08/23 documented as of this encounter
--- OUTSIDE RECORDS SUMMARY | 2024-07-16 17:08 | XMS_ITS | Encounter Summary ---
Author Organization [facility] Address [address] [place] [address] Care Team Providers Care Snack Steward Name Role Phone Provider, Abstract Primary Care Provider Unavail able Reason for Visit * Reason Comments Follow Up Encounter Details Date Type Department Care Team ([facility] st Contact Info) Description 03/05/2022 10:00 AM CDT Office Visit [facility] Oncology and Hematology - [place] [address] [place] [address] [facility] [address] [place] [address] Eddy Khan MD [address] [facility] [address] [place] [address] MGUS (monoclonal gammopathy of unknown [...] Sign Reading Time Taken Comments Blood Pressure 146/89 03/05/2022 9:50 AM CDT Pulse 58 03/05/2022 9:50 AM CDT Temperature 37 ??C (98.6 ??F) 03/05/2022 9:50 AM CDT Respiratory Rate - - Oxygen Saturation 93% 03/05/2022 9:50 AM CDT Inhaled Oxygen Concentration - - Weight 100.1 kg (220 lb 9.6 oz) 03/05/2022 9:50 AM CDT Height 177.8 cm (5' 10 ) 03/05/2022 9:50 AM CDT Body Mass Index 31.65 03/05/2022 9:50 AM CDT documented in this encounter Progress Notes * Eddy Khan MD - 03/05/2022 10:58 AM CDT HEMATOLOGY / ONCOLOGY PROGRESS NOTE Patient Identification: Name: Francis Jain Age: 71 y.o. Sex: male : 1950 DIAGNOSIS Monoclonal gammopathy of unknown significance CURRENT TREATMENT Surveillance TREATMENT HISTORY SUBJECTIVE Patient came into the office for follow-up visit. He denies any chest pain or shortness of breath. Weight and appetite stable. Denies any bone pain and neuropathy. No other new complaint. Review of system Constitutional: denies fevers, sweats, [...] dizziness Skin: No lumps, bumps or rashes. 12 point review system was reviewed and as above Objective: Vital signs in last 24 hours: [...] No lymphadenopathy Neuro: No obvious focal deficit Examination as above PATH LABS Labs from November [...] free light chain 28 with ratio 1.46 @IMAGEIMP@ Assessment: Plan: Patient Active Problem List Diagnosis Date Noted ??? MGUS (monoclonal gammopathy of unknown significance) 12/03/2020 Monoclonal gammopathy of unknown significance. Labs noted that showed reduction in M spike now down to 0.5. Clinically he remains asymptomatic. Wewill continue to observe and repeat labs again in 1 year. Hypertension. Stable on amlodipine and lisinopril. Type 2 diabetes. Continue Amaryl and metformin. TOBACCO COUNSELING He is not a tobacco user. 03/05/2022 Eddy Khan MD documented in this encounter Plan of Treatment Not on file documented as of this encounter Procedures Procedure Name Priority Date/Time Associated Diagnosis Comments IMMUNOFIXATION Routine 03/01/2023 2:11 PM CDT KAPPA/LAMBDA LIGHT CHAINS Routine 03/01/2023 2:11 PM CDT MGUS (monoclonal gammopathy of unknown significance) IMMUNOGLOBULINS IGG IGA IGM Routine 03/01/2023 2:11 PM CDT MGUS (monoclonal gammopathy of unknown significance) PROTEIN ELECTROPHORESIS W/REFLEX,SERUM Routine 03/01/2023 2:11 PM CDT MGUS (monoclonal gammopathy of unknown significance) documented in this encounter Results * IMMUNOFIXATION (03/01/2023 2:11 PM CDT) Pathologist [facility] IMMUNOFIXATION INTER [facility] Comment: IgG kappa monoclonal band present. Test Performed at: [facility] ??[phone] Lee Perez MD 03/01/2023 2:11 PM CDT 03/01/2023 2:12 PM CDT Eddy Khan MD CHEMISTRY ORDERABLES [facility] [phone] [address] * (ABNORMAL) PROTEIN ELECTROPHORESIS W/REFLEX,SERUM (03/01/2023 2:11 PM CDT) Pathologist [facility] TOTAL PROTEIN 7.4 6.1 - 8.1 g/dL [facility] ALBUMIN SPE 4.2 3.8 - 4.8 g/dL [facility] ALPHA 1 GLOBULIN SPE 0.3 0.2 - 0.3 g/dL [facility] ALPHA 2 GLOBULIN SPE 0.9 0.5 - 0.9 g/dL [facility] Beta 1 Globulin 0.4 0.4 - 0.6 g/dL [facility] Beta 2 Globulin 0.3 0.2 - 0.5 g/dL [facility] GAMMA GLOBULIN 1.2 0.8 - 1.7 g/dL [facility] ABNORMAL PROTEIN BAND SPE 0.6(H) NONE DETECTED g/dL [facility] SPE INTERP [facility] Comment: Restricted band (M-spike) migrating in the gamma region. Consider serum immunofixation to rule out a monoclonal protein if clinically indicated. Test Performed at: [facility] ??[phone] Lee Perez MD Blood 03/01/2023 2:11 PM CDT 03/01/2023 2:12 PM CDT Eddy Khan MD CHEMISTRY ORDERABLES Performing Organization Address [facility] [address] [facility] Co de Phone Number [facility] [phone] [facility] [address] [place] [address] * (ABNORMAL) KAPPA/LAMBDA, FREE LIGHT CHAINS (03/01/2023 2:11 PM CDT) KAPPA FREE LIGHT CHAIN 40.1(H) 3.3 - 19.4 mg/L [facility] LAMBDA FREE LIGHT CHAIN 23.1 5.7 - 26.3 mg/L [facility] KAPPA/LAMBDA LIGHT CHAIN RATIO 1.74(H) 0.26 - 1.65 [facility] Comment: Free kappa/lambda ratio in serum of [...] therapy of these disorders. Test Performed at: [facility] [address] [place], [place] ??[address] Lee Perez MD Blood 03/01/2023 2:11 PM CDT 03/01/2023 2:12 PM CDT Eddy Khan MD CHEMISTRY ORDERABLES Performing Organization Address City/[facility] [address]/ZIP Co de Phone Number [facility] [phone] [facility] [address] [place] [address] * IMMUNOGLOBULINS IGG IGA IGM (03/01/2023 2:11 PM CDT) IGA 204 70 - 320 mg/dL [facility] IGG 1212 600 - 1540 mg/dL [facility] IGM 134 50 - 300 mg/dL [facility] Comment: Test Performed at: [facility] [address] [place], [place] ??[address] Lee Perez MD Blood 03/01/2023 2:11 PM CDT 03/01/2023 2:12 PM CDT Eddy Khan MD CHEMISTRY ORDERABLES [facility] [phone] [facility] [address] [place] [address] documented in this encounter Visit Diagnoses Diagnosis MGUS (monoclonal gammopathy of unknown significance)- Primary Monoclonal paraproteinemia documented in this encounter Care Teams Snack Steward Relationship Specialty Start Date End Date Provider, Abstract NO ADDRESS ON FILE PCP - General 05/28/21 03/07/23 documented as of this encounter
--- OUTSIDE RECORDS SUMMARY | 2024-07-16 17:08 | XMS_ITS | Continuity of Care Document ---
Author Organization [facility] Address [address] [facility] [address] Guevara [address] [place] [address] Phone Care Team Providers Care Kindergarten Aide Name Role Phone Jose Antonio Castellano MD Unavailable Unavailable Allergies, Adverse Reactions, Alerts Substance Reaction Status Criticality No Known Allergies Active No Inform ation Medications Medication Instructions Dosage Effective Dates (start - stop) Status Comments fenofibrate 50 mg capsule take 1 capsule by oral route every day with a meal 50 MG - Active atorvastatin 10 mg tablet take 1 tablet by oral route every day 10 MG - Active metformin 500 mg tablet take 2 tablet by oral route every day with morning and evening meals 1000 MG - Active amlodipine 2.5 mg tablet take 1 tablet by oral route every day 2.5 MG - Active lisinopril 2.5 mg tablet take 1 tablet by oral route every day 2.5 MG - Active Vigamox 0.5 % eye drops Instill 1 drop in the operated eye QID x 1 week, and then TID until bottle runs out - No Longer Active ok to substitute Polytrim with same instructions 5ML bottle prednisolone acetate 1 % eye drops,suspension instill 1 drop in the operated eye QID x 1 week, TIDx 1 week, BID x 1 week then Qday x 1 week then stop - No Longer Active ketorolac 0.5 % eye drops instill 1 drop in the operated eye 3 times a day for 4 weeks - No Longer Active Procedures Procedure Date No Charge Refraction Fundus Photography W/ Report Office/outpatient Visit, New Remove Cataract, Insert Lens [facility]Master-Professional No Charge Refraction Office/outpatient Visit, Est No Charge Orbscan No Charge Refraction No Charge GDX Retina After Cataract Laser Surgery Eye Exam & Treatment IOLMaster-Technical Remove Cataract, Post Op Care 7 Remove Cataract, Insert Lens IOLMaster-Professional No Charge Refraction [facility]Master-Technical Corneal Topography Eye Exam, New Patient No Charge Refraction Advance Directives Directive Yes / No Effective Date File Name No Information Encounters Encounter Description Practice Location Reason(s) For Visit Diagnoses Date Provider Providers Copied on Encounter Office/outpa tient Visit, [facility], [address] [place] [address] [address], [place], [place], [id number], [place] tel:[phone] SEC [place] Professional YAG PC (chief complaint) Presence of intraocular lensOther secondary cataract, left eyeType 2 diab with mild nonp rtnop without mclr edema, r eyeEndotheli al corneal dystrophy, bilateralDry eye syndrome of left lacrimal gland 2 Gray Brady. [address] [facility], [address] [place], [address], [place]. tel:[phone] Referring Provider: Radha Moore, [facility] [address] [place] [address], [address]. tel:[phone] [facility], [address], [place], [place], [address], [place] tel:[phone] [facility] No Information Oct-3 8 Gray Brady. [address] [facility], [address], [place], [place], [address], [place]. tel:[phone] Referring Provider: Radha Moore, [facility] [address], [address]. tel:[phone] [facility], [address] [place] [address] [address], [place], [place], [address], tel:[phone] SEC Sonalwilmer Mayer No Information Oct-3 0-201 8 Gray Brady. [address] [facility], [address] [place], [address], [place]. tel:[phone] Referring Provider: Radha Moore, [address], [address]. tel:[phone] [facility], [address] [place] [address] [address], [place], [address], tel:[phone] SEC [place] Professional No Information Oct-2 4-201 8 Gray Brady. [address], [address] [place], [place], [address], [place]. tel:[phone] Office/outpa tient Visit, [facility], [address] [place] [address] [address], [place], [place], [id number], [place] tel:[phone] SEC [place] Professional Cataract evaluation (chief complaint) Combined forms of age-related cataract, left eye Oct-0 5-201 8 Gray Brady. [address], [address] [place], [place], [address], [place]. tel:[phone] Referring Provider: Radha Moore, [facility] [address], [address]. tel:[phone] [place] [address], [address] [place] [address] [address], [place], [address], tel:[phone] SEC [place] Professional Blurry vision (chief complaint) No Information Drake-3 0-201 8 Gray Brady. [address], [address] [place], [address], . tel:[phone] Referring Provider: Radha Moore, [facility] [address], [address]. tel:[phone] [facility], [address] [place] [address] [address], [place], [place], [address], [place] [phone] SEC Helio BUSTOS Professional 1 day CE PO (chief complaint) No Information 0 7 Gayle Carly. [address] [place], [address], [place]. tel:[phone] Referring Provider: Radha Moore, [address], [address]. tel:[phone] [facility], [address] [place] [address] [address], [place], [place], [address], [place] [phone] [place] [address] No Information 0 7 Gayle Carly. [address] [place], [address], [place]. tel:[phone] Referring Provider: Radha Moore, [address], [address]. tel:[phone] [facility], [address] [place] [address] [address], [place], [place], [address], [place] [phone] [facility] No Information 7 Gayle Carly. [address] [place], [address], [place]. tel:[phone] Referring Provider: Radha Moore, [address], [address]. tel:[phone] [facility], [address] [place] [address] [address], [place], [place], [address], [place] [phone] SEC Helio BUSTOS Professional Cataract evaluation (chief complaint) No Information 7 Irwin Carroll. [address] [place], [address], [place]. tel:[phone] Referring Provider: Radha Moore, [facility] [address], [place], [address]. tel:[phone] Family History Family Member Type Diagnosis Age At Onset Problem (finding) Family history of Diabe hussain mellitus Payers Payer name Insurance type Covered republican ID Authoriza tion(s) [place] [id number] [facility] [id number] Social History Type Description Quantity Date Captured Comments Alcohol Use Details No Caffeine Use Details 3 cups per day Tobacco Use Status Heavy cigarette smok er (20-39 cigs/day) Smoking Status Heavy tobacco smoker Smoking Tobacco Use Details Cigarette: No Details Available Cigarette: 1 Packs per day Sex Male Chief Complaint And Reason For Visit From encounter dated '08/05/2021 13:00'. YAG PC (chief complaint). Description: The 70 year old male presents for evaluation of YAG PC in the right eye and left eye. Hx of PCIOL OU and YAG PC OD. Patient states he avoids driving at night due to glare and difficulty reading small print both eyes. Patient is a Type 2 diab, BS checked this am @ 161, a1c is 7.2, and PCP treats his diab. Reason For Referral Reason For Referral No Information Plan Of Treatment Date Type Action Status Goal Tobacco cessation counseling completed Goal Tobacco cessation counseling completed Goal Tobacco cessation counseling completed Patient Education Learning About YAG Lase r Capsulotomy completed History Of Present Illness Encounter Date Complaint History Of Prese nt Illness YAG PC The 70 year old male presents for evaluation of YAG PC in the right eye and left eye. Hx of PCIOL OU and YAG PC OD. Patient states he avoids driving at night due to glare and difficulty reading small print both eyes. Patient is a Type 2 diab, BS checked this am @ 161, a1c is 7.2, and PCP treats his diab. Cataract evaluation The 67 year old male presents for evaluation of Cataract evaluation in the left eye. (90 day rule) Patient is upset because OS wasn't scheduled and had to come back for this apt. Patient c/o blurry vision OS and patient notices a difference between eyes. Patient states OD is doing good. Blurry vision The 67 year old male presents for evaluation of Blurry vision in the right eye and left eye. Hx of PCIOL OD and Cataract OS. Patient states over the last couple of months VA has decreased at a distance and glare is more bothersome at night when driving. Patient is a Type 2 diab x 7 years, not Insulin dependant, BS checked yesterday @ 116, and A1C 6.1. Patient sees Dr. Payton Marques in [facility] for his diab. 1 day CE PO The 66 year old male presents for 1 day CE PO in the right eye. Pt is DM II. Pt reports OD feels moderately irritated, like there is sand in it. PO instructions were given, explained and understood by pt. Pt using Ocuflox, Pred, and Ketorolac as directed. Cataract evaluation The 66 year old male presents for Cataract evaluation OU, patient denies any pain or discomfort at this time, but does c/o itching that comes and goes when he is mowing grass. States that v/a has decreased slowly in the distance, near,and c glare. Patient does not use any gtts at this time. Patient is type 2 diabetic, is not insulin dependant. LBS was 150 yesterday at 10:00AM, HGA1C level was 8.1 taken November 24, 2016 Functional Status Date Functional Assessmen t No Information Instructions Date Instruction Additional Infor elan Impression/Plan Impression/Plan Educational material given Relat ed to Pseudophakia of right eye Educational material given Relat ed to Combined forms of age-related cataract of both eyes Impression/Plan Impression/Plan - PO D 1 s/p CE/PCIOL OD. Doing well, small corneal abrasion. IOP well controlled. Post op med instructions reviewed with pt, and post op instructions discussed. Instructed patient to hold off on starting Pred until Wednesday. Start ketorolac and ofloxacin. Discussed warning signs and symptoms and need for immediate exam should these occur. Pt understands shield use, return to Dr. Coley for co-management. Related to Encntr for f/u exam aft trtmt for cond oth than malig neoplm Encntr for f/u exam aft trtmt for cond oth than malig neoplm - Medication use reviewed Related to Encntr for f/u exam aft trtmt for cond oth than malig neoplm Encntr for f/u exam aft trtmt for cond oth than malig neoplm - Post op instructions reviewed and understood by patient Related to Encntr for f/u exam aft trtmt for cond oth than malig neoplm Impression/Plan - No signs of retinopathy on exam. Saw Dr. Gimenez 2 wks ago, and was noted to have resolution of macular edema with BP control. Recommend good BP and BS control, especially around the time of cataract surgery. Related to Diabetes mellitus without complication Impression/Plan - Ca taract presence and progression discussed. Cataracts account for the patients complaints. Discussed all risks, benefits, procedures and recovery. Vision will not significantly improve with a change in glasses and we recommend not changing. The patient understands this is an elective procedure and may proceed when desired. The patients questions were answered and demonstrates understanding of our discussion. Patient desires to have surgery, recommend phacoemulsification with intraocular lens. Discussed astigmatism with pt.- Visually significant OU- Will plan on OD first, followed by OS. - Dilates 7.5 mm OU- No trauma or prior surgery - ASA Daily- No Flomax - History of DM last A1C 8.1, HTN, Stroke February 2016, RICHARD Nasal C Pap used- Able to lay flat for 60 minutes- Special considerations for cataract surgery: Topical- Special considerations for lens: Standard monofocal IOL - Pt states he has been seing Dr. Gimenez in the past for macular edema that was being treated with BP control. Pt states he saw Dr. Gimenez 2 wks ago and was told that his macular edema had resolved. Will have surgery schedulers contact patient. 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
--- OUTSIDE RECORDS SUMMARY | 2024-07-16 17:08 | XMS_ITS | Encounter Summary ---
Author Organization [facility] Address [address] Attn: Epic Prelude ADT [place] [address] Care Team Providers Care Universal Banker Name Role Phone Sky Campbell MD Primary Care Provider [phone] Encounter Details Date Type Department Care Team (Latest Contact Info) Description 12/03/2020 Travel Social History Tobacco Use Types Packs/Day [...] on filedocumented in this encounter Care Teams Universal Banker Relationship Specialty Start Date End Date Sky Campbell MD [address] [facility] [address] [place] [address] PCP - General Nephrology 11/14/20 04/23/21 documented as of this encounter
--- OUTSIDE RECORDS SUMMARY | 2024-07-16 17:08 | XMS_ITS | Encounter Summary ---
Author Organization [facility] Address [address] [place] [address] Care Team Providers Care Employee Service Officer Name Role Phone Radha Devlin MD Primary Care Provider Encounter Details Date Type Department Care Team (Late st Contact Info) Description 06/09/2023 External Device Data STL ABSTRACTION Provider, Abstract [...] on filedocumented in this encounter Care Teams Employee Service Officer Relationship Specialty Start Date End Date Radha Devlin MD [address] [place] [address] PCP - General Family Practice 03/08/23 documented as of this encounter
--- OUTSIDE RECORDS SUMMARY | 2024-07-16 17:08 | XMS_ITS | Encounter Summary ---
Author Organization [facility] Address [address] [place] [address] Phone Care Team Providers Care Cigar Head Perforator Name Role Phone Yas Marques MD Primary Care Provider [phone] Encounter Details Date Type Department Care Team (Late st Contact Info) Description 09/04/2019 1:15 PM LENS POLISHER Office Visit [facility] Nephrology and Hypertension [address] [place] [address], [address] [place] [address] Sky Campbell MD [facility], [address] [place] [address] Other proteinuria; Diabetes mellitus with renal manifestations ([facility]); Essential (primary) hypertension; Obstructive sleep apnea syndrome [...] Sign Reading Time Taken Comments Blood Pressure 134/72 09/04/2019 1:22 PM LENS POLISHER Pulse - - Temperature 36.7 ??C (98 ??F) 09/04/2019 1:22 PM LENS POLISHER Respiratory Rate 18 09/04/2019 1:22 PM LENS POLISHER Oxygen Saturation - - Inhaled Oxygen Concentration - - Weight 102 kg (225 lb) 09/04/2019 1:22 PM LENS POLISHER Height 177.8 cm (5' 10 ) 09/04/2019 1:22 PM LENS POLISHER Body Mass Index 32.28 09/04/2019 1:22 PM LENS POLISHER documented in this encounter Progress Notes * Sky Campbell MD - 09/04/2019 1:15 PM CST FOLLOW-UP OFFICE VISIT Patient: Francis Jain Birthdate: 1950 PCP: Yas Marques MD Visit Date: 09/04/2019 INTERIM HISTORY Francis Jain here for follow-up regarding his proteinuria. He was seen about 8 weeks ago for initial evaluation of this issue. Since last seen, he appears to be doing reasonably well. No apparent distress or concerns voiced atthis time. No issues or problems to report on this clinic visit. Past medical history, [...] each day, Disp: , Rfl: 1 ??? lisinopril (PRINIVIL,ZESTRIL) 20 MG tablet, Take [...] Skin: No rash or itching. VITALS BP 134/72 (BP Location: Right arm, Patient Position: Sitting) Temp 98 ??F (36.7 ??C) Resp 18 Ht 5' 10 (1.778 m) Wt 225 lb (102 kg) BMI 32.28 kg/m?? BSA 2.24 m?? PHYSICAL EXAM General: Comfortable and in no acute distress Cardiovascular: Normal S1, S2; no rub Respiratory: Clear bilaterally Abdominal: Soft, non-tender, non-distended; positive bowel sounds Extremities: No cyanosis, clubbing, or edema Skin: Warm and dry RECENT LABS/IMAGING Lab Results Component Value Date BUN 16 08/28/2019 CREATININE 0.90 08/28/2019 EGFRAA 101 08/28/2019 EGFR 87 08/28/2019 NA 142 08/28/2019 K 4.2 08/28/2019 CL 107 08/28/2019 CO2 26 08/28/2019 CA 9.3 08/28/2019 PHOSPHATE 3.2 08/28/2019 ALBUMIN 4.4 08/28/2019 ALBUMIN 4.0 08/28/2019 GLUCOSE 142 (H) 08/28/2019 PROTCREATUR 217 (H) 08/28/2019 PROTCREATUR 0.217 (H) 08/28/2019 HGBA1C 6.8 11/24/2018 Lab Results Component Value Date COMPLEMENTC3 157 08/28/2019 COMPLEMENTC4 36 08/28/2019 UZMA POSITIVE (A) 08/28/2019 UZMA 1:1280 (H) 08/28/2019 UZMA CANCELED 08/28/2019 UZMA CANCELED 08/28/2019 ANCA Negative 08/28/2019 MPO <1.0 08/28/2019 PR3 <1.0 08/28/2019 PROTEINFRACT M-spike in gamma region 08/28/2019 UPEP No M-spike 08/28/2019 BASEMENTMEMB <1.0 08/28/2019 ANTIDNADS 2 08/28/2019 EOSPCTUR 0 08/28/2019 08/17/19 Renal U/S: right kidney 12.3cm, left kidney 12.7cm; no hydronephrosis and probable left nephrolithiasis ASSESSMENT AND PLAN 1. Other proteinuria 2. Diabetes mellitus with renal manifestations ([facility]) 3. Essential (primary) hypertension 4. Obstructive sleep apnea syndrome Francis has proteinuria but is not in the nephrotic range. This is most likely secondary to his diabetes, hypertension, obstructive sleep apnea, and vascular disease. His evaluation to date demonstrates a normal renal ultrasound, negative serologies with the exception of a postive UZMA (but normal dsDNA-ab and complements arguing against lupus), and a positive SPEP(+ M-spike), and approximately 217mg of proteinuria in association [...] minimum. Blood Pressure for this visit is 134/72. The follow up plan to address blood pressure is follow thetrend. Body mass index is 32.28 kg/m??. Follow up plan to address BMI is diet/exercise. Follow up plan to address tobacco use is ongoing counseling. Continue current medications Repeat labs prior to next visit Lowell Campbell MD documented in this encounter Plan of Treatment Scheduled Orders Name Type Priority Associated Diagnoses Orde r Schedule IMMUNOFIXATION, URINE Lab Routine Other proteinuria Diabetes mellitus with renal manifestations ([facility]) Essential (primary) hypertension Obstructive sleep apnea syndrome Expected: 12/03/2019, Expires: 09/04/2020 documented as of this encounter Procedures Procedure Name Priority Date/Time Associated Diagnosis Comments IMMUNOFIXATION (YOHAN), URINE Routine 01/03/2020 7:02 AM CDT TOTAL PROTEIN W/ CREATININE, URINE, RANDOM Routine 01/03/2020 7:02 AM CDT Other proteinuria Diabetes mellitus with renal manifestations ([facility]) Essential (primary) hypertension Obstructive sleep apnea syndrome RENAL FUNCTION PANEL (RFP) Routine 01/03/2020 7:02 AM CDT Other proteinuria Diabetes mellitus with renal manifestations ([facility]) Essential (primary) hypertension Obstructive sleep apnea syndrome IMMUNOFIXATION, SERUM Routine 01/03/2020 7:02 AM CDT Other proteinuria Diabetes mellitus with renal manifestations ([facility]) Essential (primary) hypertension Obstructive sleep apnea syndrome documented in this encounter Results * Immunofixation (YOHAN), Urine (01/03/2020 7:02 AM CDT) Immunofixation for Urine [facility] ([facility]) Comment: No monoclonal immunoglobulin detected. 01/03/2020 7:02 AM CDT 01/03/2020 7:05 AM CDT Narrative [facility] - [facility] ([facility]) - 01/04/2020 2:30 PM CDT FASTING:YES FASTING: YES Resulting Agency Comment Performing Organization Information: ?Site ID: [place] ?Name: [facility] ?Address: [address] [place] [address] [place] [address] ?Director: Augustus Giron D.O., MPH Sky Campbell MD LAB BLOOD ORDERABLES [facility] ([facility]) * IMMUNOFIXATION, SERUM (01/03/2020 7:02 AM CDT) Immunofixation for Serum/Plasma [facility] ([facility]) Comment:IgG kappa monoclonal band present. Blood (Blood, Venous) 01/03/2020 7:02 AM CDT 01/03/2020 7:05 AM CDT Narrative [facility] ([facility]) - 01/04/2020 2:30 PM CDT FASTING:YES FASTING: YES Resulting Agency Comment Performing Organization Information: ?Site ID: [place] ?Name: [facility] ?Address: [facility] [place] [address] ?Director: Augustus Giron D.O., MPH Sky Campbell MD LAB URINE ORDERABLES Performing Organization Address [facility] Co de Phone Number [facility] ([facility]) * (ABNORMAL) Total Protein w/ Creatinine, Urine, Random (01/03/2020 7:02 AM CDT) Creatinine, Urine 59 20 - 320 mg/dL [facility] ([facility]) Protein/Creati nine, Urine 153(H) 22 - 128 mg/g creat [facility] ([facility]) Protein/Creati nine, Urine 0.153(H) 0.022 - 0.128 mg/mg creat [facility] ([facility]) Protein, Urine 9 5 - 25 mg/dL [facility] ([facility]) 01/03/2020 7:02 AM CDT 01/03/2020 7:05 AM CDT Narrative [facility] ([facility]) - 01/04/2020 2:30 PM CDT FASTING:YES FASTING: YES Resulting Agency Comment Performing Organization Information: ?Site ID: [place] ?Name: [facility] ?Address: [facility] [place] [address] ?Director: Augustus Giron D.O., MPH Sky Campbell MD LAB URINE ORDERABLES Performing Organization Address [facility] Co de Phone Number [facility] ([facility]) * (ABNORMAL) Renal Function Panel (RFP) (01/03/2020 7:02 AM CDT) Glucose, Serum/Plasma 153(H) 65 - 99 mg/dL [facility] ([facility]) Comment: ? Fasting reference interval For someone without known diabetes, a glucose value >125 mg/dL indicates that they may have diabetes and this should be confirmed with a follow-up test. Urea nitrogen, Serum/Plasma (BUN) 27(H) 7 - 25 mg/dL [facility] Creatinine, Serum/Plasma 0.99 0.70 - 1.18 mg/dL [facility] ([facility]) Comment: For patients >49 years of age, the reference limit for Creatinine is approximately 13% higher for people identified as -[place]. eGFR, non 77 > OR = 60 mL/min/1.[address] [facility] ([facility]) eGFR, 89 > OR = 60 mL/min/1.[address] [facility] ([facility]) Urea nitrogen/Creatinin e, Serum/Plasma 27(H) 6 - 22 (calc) [facility] ([facility]) Sodium, Serum/Plasma 139 135 - 146 mmol/L [facility] ([facility]) Potassium, Serum/Plasma 4.0 3.5 - 5.3 mmol/L [facility] ([facility]) Chloride, Serum/Plasma 107 98 - 110 mmol/L [facility] ([facility]) Carbon dioxide CO2), total, Serum/Plasma 24 20 - 32 mmol/L [facility] ([facility]) Calcium, Serum/Plasma 9.7 8.6 - 10.3 mg/dL [facility] ([facility]) Phosphate, Serum/Plasma 3.5 2.1 - 4.3 mg/dL [facility] ([facility]) Albumin, Serum/Plasma 4.1 3.6 - 5.1 g/dL [facility] ([facility]) Blood (Blood, Venous) 01/03/2020 7:02 AM CDT 01/03/2020 7:05 AM CDT Narrative [facility] (ST) - 01/04/2020 2:30 PM CDT FASTING:YES FASTING: YES Resulting Agency Comment Performing Organization Information: ?Site ID: [place] ?Name: [facility] ?Address: [address] [place] [address] ?Director: Augustus Giron D.O., MPH Sky Campbell MD LAB BLOOD ORDERABLES [facility] ([facility]) documented in this encounter Visit Diagnoses Diagnosis Other proteinuria Diabetes mellitus with renal manifestations ([facility]) Essential (primary) hypertension Obstructive sleep apnea syndrome documented in this encounter Care Teams Cigar Head Perforator Relationship Specialty Start Date End Date Yas Marques MD [address] [facility] [address] [facility] [address] [place] [address] PCP - General Internal Medicine 07/03/19 10/13/20 documented as of this encounter
--- OUTSIDE RECORDS SUMMARY | 2024-07-16 17:08 | XMS_ITS | Encounter Summary ---
Author Organization [facility] Therative [facility] Address [address] [place] [address] Care Team Providers Care Paper Sales Representative Name Role Phone Radha Devlin MD Primary Care Provider [phone] Encounter Details Date Type Department Care Team (Late st Contact Info) Description 03/08/[address] [facility] Oncology and Hematology - [place] [address] [facility] [address] [place] [address] Eddy Khan MD [address] [facility] [address] [place] [address] MGUS (monoclonal gammopathy of unknown [...] as of this encounter Plan of Treatment Scheduled Orders Name Type Priority Associated Diagnoses Orde r Schedule COMPREHENSIVE METABOLIC PANEL Lab Routine MGUS (monoclonal gammopathy of unknown significance) Expected: 03/08/2023, Expires: 03/08/2024 CBC WITH DIFFERENTIAL Lab Routine MGUS (monoclonal gammopathy of unknown significance) Expected: 03/08/2023, Expires: 03/08/2024 documented as of this encounter Visit Diagnoses Diagnosis 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
--- OUTSIDE RECORDS SUMMARY | 2024-07-16 17:08 | XMS_ITS | Encounter Summary ---
Author Organization [facility] [employer] [facility] Address [address] [place] [address] Care Team Providers Care Shovel Mechanic Name Role Phone Provider, Abstract Primary Care Provider Unavail able Reason for Visit * Reason Comments Follow Up 6 month f/u with lab s Encounter Details Date Type Department Care Team (Late st Contact Info) Description 06/05/2021 10:15 AM SCALE BALANCER Office Visit [facility] Oncology and Hematology - [place] [address] [place] [address] [facility] [address] [place] [address] Eddy Khan MD [address] [facility] [address] [place] [address] MGUS (monoclonal gammopathy of unknown [...] COVID-19? No / Unsure 06/05/2021 10:25 AM SCALE BALANCER documented as of this encounter Last Filed Vital Signs Vital Sign Reading Time Taken Comments Blood Pressure 132/77 06/05/2021 10:38 AM SCALE BALANCER Pulse 66 06/05/2021 10:38 AM SCALE BALANCER Temperature 36.7 ??C (98 ??F) 06/05/2021 10: 38 AM SCALE BALANCER Respiratory Rate - - Oxygen Saturation 95% 06/05/2021 10: 38 AM SCALE BALANCER Inhaled Oxygen Concentration - - Weight 101.1 kg (222 lb 14.4 oz) 2020 10:38 AM SCALE BALANCER Height 177.8 cm (5' 10 ) 06/05/2021 10: 38 AM SCALE BALANCER Body Mass Index 31.98 06/05/2021 10:38 AM SCALE BALANCER documented in this encounter Progress Notes * Eddy Khan MD - 06/05/2021 11:23 AM CST HEMATOLOGY / ONCOLOGY PROGRESS NOTE Patient Identification: Name: Francis Jain Age: 70 y.o. Sex: male : 1950 DIAGNOSIS Monoclonal gammopathy of unknown significance CURRENT TREATMENT Surveillance TREATMENT HISTORY SUBJECTIVE Patient came into the office for follow-up visit. He denies any neuropathy and bone pain. Weight and appetite stable. No [...] 9.3 WBC 7.6 hemoglobin 15.8 platelet 202,000 @IMAGEIMP@ Assessment: Plan: Patient Active Problem List Diagnosis Date Noted ??? MGUS (monoclonal gammopathy of unknown significance) 12/03/2020 Monoclonal gammopathy of unknown significance. Patient is clinically asymptomatic. Serum protein electrophoresis showed M spike of 0.7 g/dL. I plan to see him back in 9 months with repeat labs. Hypertension. Stable on amlodipine and lisinopril. Type 2 diabetes. Patient is on Metformin and Amaryl. TOBACCO COUNSELING He is not a tobacco user. 06/05/2021 Eddy Khan MD E BALANCER documented in this encounter Plan of Treatment Not on file documented as of this encounter Procedures Procedure Name Priority Date/Time Associated Diagnosis Comments KAPPA/LAMBDA LIGHT CHAINS Routine 02/24/2022 10:40 AM CDT MGUS (monoclonal gammopathy of unknown significance) IMMUNOGLOBULINS IGG IGA IGM Routine 02/24/2022 10:40 AM CDT MGUS (monoclonal gammopathy of unknown significance) PROTEIN ELECTROPHORESIS W/REFLEX,SERUM Routine 02/24/2022 10:40 AM CDT MGUS (monoclonal gammopathy of unknown significance) documented in this encounter Results * (ABNORMAL) PROTEIN ELECTROPHORESIS W/REFLEX,SERUM (02/24/2022 10:40 AM CDT) TOTAL PROTEIN 7.2 6.1 - 8.1 g/dL [facility] ALBUMIN SPE 4.1 3.8 - 4.8 g/dL [facility] ALPHA 1 GLOBULIN SPE 0.4(H) 0.2 - 0.3 g/dL [facility] ALPHA 2 GLOBULIN SPE 0.9 0.5 - 0.9 g/dL [facility] Beta 1 Globulin 0.5 0.4 - 0.6 g/dL [facility] Beta 2 Globulin 0.3 0.2 - 0.5 g/dL [facility] GAMMA GLOBULIN 1.1 0.8 - 1.7 g/dL [facility] ABNORMAL PROTEIN BAND SPE 0.5(H) NONE DETECTED g/dL [facility] SPE INTERP [facility] Comment: Restricted band (M-spike) migrating in the gamma region. Consider serum immunofixation to rule out a monoclonal protein if clinically indicated. IMMUNOFIXATION [facility] [place] Comment: IgG kappa monoclonal band present. Test Performed at: [facility] ??[phone] Augustus Giron D.O., MPH Blood 02/24/2022 10:4 0 AM CDT 02/24/2022 10:42 AM CDT Eddy Khan MD CHEMISTRY ORDERABLES [facility] [phone] [facility] [address] * (ABNORMAL) KAPPA/LAMBDA, FREE LIGHT CHAINS (02/24/2022 10:40 AM CDT) KAPPA FREE LIGHT CHAIN 28.0(H) 3.3 - 19.4 mg/L [facility] LAMBDA FREE LIGHT CHAIN 19.2 5.7 - 26.3 mg/L [facility] [place] KAPPA/LAMBDA LIGHT CHAIN RATIO 1.46 0.26 - 1.65 [facility] Comment: Free kappa/lambda ratio in serum of [...] therapy of these disorders. Test Performed at: [facility] ??[phone] Augustus Giron D.O., MPH Blood 02/24/2022 10:4 0 AM CDT 02/24/2022 10:42 AM CDT Eddy Khan MD CHEMISTRY ORDERABLES Performing Organization Address City/[facility]/ZIP Co de Phone Number [facility] [phone] [facility] [address] [address] * IMMUNOGLOBULINS IGG IGA IGM (02/24/2022 10:40 AM CDT) IGA 193 70 - 320 mg/dL [facility] IGG 1204 600 - 1540 mg/dL [facility] IGM 133 50 - 300 mg/dL [facility] Comment: Test Performed at: [facility] ??[phone] Augustus Giron D.O., MPH Blood 02/24/2022 10:4 0 AM CDT 02/24/2022 10:42 AM CDT Eddy Khan MD CHEMISTRY ORDERABLES [facility] [phone] [facility] [address] [address] documented in this encounter Visit Diagnoses Diagnosis MGUS (monoclonal gammopathy of unknown significance)- Primary Monoclonal paraproteinemia documented in this encounter Care Teams Shovel Mechanic Relationship Specialty Start Date End Date Provider, Abstract NO ADDRESS ON FILE PCP - General 05/28/21 03/07/23 documented as of this encounter
--- OUTSIDE RECORDS SUMMARY | 2024-07-16 17:08 | XMS_ITS | Encounter Summary ---
Author Organization [facility] Address [address] [facility] Attn: Epic Prelude ADT DAVID MEDRANO [id number] Care Team Providers Care Dial Polisher Name Role Phone Provider, Abstract Primary Care Provider Unavail able Encounter Details Date Type Department Care Team (Late st Contact Info) Description 06/02/2021 Orders Only Initial Department [address] CEJA: [place] [address] Provider, Historical Social History Tobacco Use Types [...] Associated Diagnosis Comments KAPPA/LAMBDA LIGHT CHAINS Routine 06/02/2021 11:51 AM SALES SUPPORT ADVISOR CBC WITH DIFFERENTIAL Routine 06/02/2021 11:51 AM SALES SUPPORT ADVISOR IMMUNOGLOBULINS IGG IGA IGM Routine 06/02/2021 11:51 AM SALES SUPPORT ADVISOR PROTEIN ELECTROPHORESIS W/REFLEX,SERUM Routine 06/02/2021 11:51 AM SALES SUPPORT ADVISOR COMPREHENSIVE METABOLIC PANEL Routine 06/02/2021 11:51 AM SALES SUPPORT ADVISOR documented in this encounter Results * (ABNORMAL) KAPPA/LAMBDA LIGHT CHAINS (06/02/2021 11:51 AM SALES SUPPORT ADVISOR) KAPPA FREE LIGHT CHAIN 30.1(H) 3.3 - 19.4 mg/L [facility] LAMBDA FREE LIGHT CHAIN 18.1 5.7 - 26.3 mg/L [facility] KAPPA/LAMBDA LIGHT CHAIN RATIO 1.66(H) 0.26 - 1.65 [facility] Comment: Free kappa/lambda ratio in serum of [...] following response to therapy of these disorders. IMMUNOFIXATION INTERP [facility] Comment: IgG kappa monoclonal band present. Test Performed at: [facility] [address] [place], [place] ??[phone] Augustus Giron D.O., MPH 06/02/2021 11:5 1 AM SALES SUPPORT ADVISOR 06/02/2021 11:52 AM SALES SUPPORT ADVISOR Eddy Khan MD CHEMISTRY ORDERABLES Performing Organization Address [facility] Co de Phone Number [facility] [address] [place] [address] * IMMUNOGLOBULINS IGG IGA IGM (06/02/2021 11:51 AM SALES SUPPORT ADVISOR) IGA 184 70 - 320 mg/dL [facility] IGG 1078 600 - 1540 mg/dL [facility] IGM 120 50 - 300 mg/dL [facility] Comment: Test Performed at: [facility] [id number] [place], [place] ??[phone] Augustus Giron D.O., MPH 06/02/2021 11:5 1 AM SALES SUPPORT ADVISOR 06/02/2021 11:52 AM SALES SUPPORT ADVISOR Eddy Khan MD CHEMISTRY ORDERABLES Performing Organization Address [facility] Co de Phone Number [facility] [address] [place] [address] * (ABNORMAL) COMPREHENSIVE METABOLIC PANEL (06/02/2021 11:51 AM SALES SUPPORT ADVISOR) GLUCOSE 108(H) 65 - 99 mg/dL [facility] Comment: ? Fasting reference interval For someone without known diabetes, a glucose value between 100 and 125 mg/dL is consistent with prediabetes and should be confirmed with a follow-up test. BUN 20 7 - 25 mg/dL [facility] CREATININE 0.92 0.70 - 1.18 mg/dL [facility] Comment: For patients >49 years of age, the reference limit for Creatinine is approximately 13% higher for people identified as -Italian. GFR 83 > OR = 60 mL/min/1 .73m2 [facility] GFR, 97 > OR = 60 mL/min/1 .73m2 [facility] BUN/CREAT RATIO NOT APPLICABLE 6 - 22 (calc) [facility] SODIUM 140 135 - 146 mmol/L [facility] POTASSIUM 4.2 3.5 - 5.3 mmol/L [facility] CHLORIDE 106 98 - 110 mmol/L [facility] CO2 24 20 - 32 mmol/L [facility] CALCIUM 9.3 8.6 - 10.3 mg/dL [facility] TOTAL PROTEIN 7.4 6.1 - 8.1 g/dL [facility] ALBUMIN 4.3 3.6 - 5.1 g/dL [facility] GLOBULIN 3.1 1.9 - 3.7 g/dL (calc) [facility] ALBUMIN/GLOBULIN RATIO 1.4 1.0 - 2.5 (calc) [facility] BILIRUBIN TOTAL 0.6 0.2 - 1.2 mg/dL [facility] ALKALINE PHOSPHATASE 92 35 - 144 U/L [facility] AST 20 10 - 35 U/L [facility] ALT 25 9 - 46 U/L [facility] Comment: Test Performed at: [facility] [address] [place], [place] ??[phone] Augustus Giron D.O., MPH 06/02/2021 11:5 1 AM SALES SUPPORT ADVISOR 06/02/2021 11:52 AM SALES SUPPORT ADVISOR Eddy Khan MD CHEMISTRY ORDERABLES [facility] [address] [place] [address] * (ABNORMAL) PROTEIN ELECTROPHORESIS W/REFLEX,SERUM (06/02/2021 11:51 AM SALES SUPPORT ADVISOR) Pathologist [facility] TOTAL PROTEIN 7.4 6.1 - 8.1 g/dL [facility] ALBUMIN SPE 4.1 3.8 - 4.8 g/dL [facility] ALPHA 1 GLOBULIN SPE 0.4(H) 0.2 - 0.3 g/dL [facility] ALPHA 2 GLOBULIN SPE 0.9 0.5 - 0.9 g/dL [facility] Beta 1 Globulin 0.6 0.4 - 0.6 g/dL [facility] Beta 2 Globulin 0.3 0.2 - 0.5 g/dL [facility] GAMMA GLOBULIN 1.2 0.8 - 1.7 g/dL [facility] ABNORMAL PROTEIN BAND SPE 0.7(H) NONE DETECTED g/dL [facility] SPE INTERP [facility] Comment: Restricted band (M-spike) migrating in the gamma region. Consider serum immunofixation to rule out a monoclonal protein if clinically indicated. Test Performed at: [facility] ??[phone] Augustus Giron D.O., MPH 06/02/2021 11:5 1 AM SALES SUPPORT ADVISOR 06/02/2021 11:52 AM SALES SUPPORT ADVISOR Eddy Khan MD CHEMISTRY ORDERABLES [facility] [address] [place] [address] * CBC WITH DIFFERENTIAL (06/02/2021 11:51 AM SALES SUPPORT ADVISOR) Pathologist [facility] WBC 7.6 3.8 - 10.8 Thousand/u L [facility] RBC 5.30 4.20 - 5.80 Million/uL [facility] HEMOGLOBIN 15.8 13.2 - 17.1 g/dL [facility] HEMATOCRIT 48.8 38.5 - 50.0 % [facility] MCV 92.1 80.0 - 100.0 fL [facility] MCH 29.8 27.0 - 33.0 pg [facility] MCHC 32.4 32.0 - 36.0 g/dL [facility] RDW 12.9 11.0 - 15.0 % [facility] PLATELETS 202 140 - 400 Thousand/u L [facility] MPV 9.7 7.5 - 12.5 fL [facility] NEUTROPHIL ABSOLUTE 4,127 1,500 - 7,800 cells/uL [facility] LYMPHOCYTE ABSOLUTE 2,584 850 - 3,900 cells/uL [facility] MONOCYTE ABSOLUTE 486 200 - 950 cells/uL [facility] EOSINOPHIL ABSOLUTE 296 15 - 500 cells/uL [facility] BASOPHILS ABSOLUTE 106 0 - 200 cells/uL [facility] NEUTROPHIL 54.3 % [facility] LYMPHOCYTES 34.0 % [facility] MONOCYTE 6.4 % [facility] EOSINOPHILS 3.9 % [facility] BASOPHILS 1.4 % [facility] Comment: Test Performed at: [facility] [address] [place], [place] ??[phone] Augustus Giron D.O., MPH 06/02/2021 11:5 1 AM SALES SUPPORT ADVISOR 06/02/2021 11:52 AM SALES SUPPORT ADVISOR Eddy Khan MD HEMATOLOGY ORDERABLE S Performing Organization Address City/State/[facility] Co de Phone Number [facility] [address] [place] [address] documented in this encounter Visit Diagnoses Not on filedocumented in this encounter Care Teams Dial Polisher Relationship Specialty Start Date End Date Provider, Abstract NO ADDRESS ON FILE PCP - General 05/28/21 03/07/23 documented as of this encounter
--- OUTSIDE RECORDS SUMMARY | 2024-07-16 17:08 | XMS_ITS | Clinical Summary ---
Author Organization [facility] Address [address] [place] [address] Phone Care Team Providers Care Metropolitan Editor Name Role Phone Rehan Thompson MD Primary Care Provider [phone] Allergies No known active allergies Medications Medication Sig Dispensed Refills Start Date End Date Status amLODIPine (NORVASC) 10 MG tablet Take 10 mg by mouth daily 10/02/2016 Active atorvastatin (LIPITOR) 80 MG tablet Take 80 mg by mouth daily 10/02/2016 Active Blood Glucose Monitoring Suppl ([employer] TOUCH ULTRA 2) w/Device kit 1 Device daily 10/12/2015 Activ e ezetimibe (ZETIA) 10 MG tablet Take 10 mg by mouth 1 (one) time each day 2 04/24/2019 Active glimepiride (AMARYL) 2 MG tablet Take 2 mg by mouth 1 (one) time each day 1 05/08/2019 Active lisinopril (PRINIVIL,ZESTRI L) 20 MG tablet Take 20 mg by mouth daily 10/02/2016 Active Magnesium 250 MG tablet Take 400 mg by mouth daily Active metFORMIN XR (GLUCOPHATE-XR) 500 MG 24 hr tablet TAKE 2 TABLET BY MOUTH EVERY DAY WITH THE EVENING MEAL 1 05/15/2019 Active sildenafil (VIAGRA) 100 MG tablet TAKE 1 TABLET BY MOUTH ONCE DAILY NEEDED APPROXIMATELY 1 HOUR BEFORE SEXUAL ACTIVITY 11 05/19/2019 Activ e topiramate (TOPAMAX) 25 MG tablet Take 50 mg by mouth 2 (two) times a day 3 05/22/2019 Active predniSONE (DELTASONE) 20 MG tablet prednisone 20 mg tablet A ctive HYDROcodone-acet aminophen (NORCO) 5-325 MG per tablet hydrocodone 5 mg-acetaminophen 325 mg tablet Active hydroCHLOROthiaz kevin (HYDRODIURIL) 12.5 MG tablet hydrochlorothiazide 12.5 mg tablet Active Active Problems Problem Noted Date Diagnosed Date Dyslipidemia 07/03/2019 Headache 07/03/2019 Overview (07/03/2019): (? CLASSIC MIGRAINE) Hypertension 05/15/2016 Diabetes mellitus 05/15/2016 Cerebrovascular accident 05/15/2016 Overview (07/03/2019): Carotid artery disease Hyperlipidemia 05/15/2016 Overview (07/03/2019): Hypercholesterolemia Migraine 05/15/2016 Obstructive sleep apnea syndrome 05/15/2016 Pain in elbow 05/05/2012 Overview (07/03/2019): Elbow pain, right Cardiac murmur 09/10/2011 Overview (07/03/2019): Heart murmur Immunizations Name Administration Dates Next Due Influenza Split 05/05/2012,04/29/2011 Influenza Split High Dose Preservative Free IM 0 04/23/2016,05/30/2015 Influenza TIV (IM) 07/26/2013 Influenza, Injectable, Quadrivalent 05/03/2019 Pneumococcal Conjugate 13-Valent 07/02/2015 Pneumococcal Polysaccharide 11/23/2016 Td 04/25/2011 Family History Medical History Relation Comments Diabetes Brother Cancer Mother Diabetes Paternal Grandmother Relation Status Comments Brother Mother Paternal Grandmother Social History Tobacco Use Types Packs/Day Years [...] Mass Index 31.71 10/14/2020 1:18 PM CDT Plan of Treatment Health Maintenance Due Date Last Done Comments Influenza Vaccine (#1) 2024 4, 05/05/2012, 04/29/2011 Pneumococcal PPSV23/PCV13 65 + Years / Low and Medium Risk Completed 11/23/2016, 07/02/2015 Care Teams Metropolitan Editor Relationship Specialty Start Date End Date Rehan Thompson MD [address] [facility] [address] [place] [address] PCP - General Family Medicine 10/14/20
== END 2024-07-10 08:38 | disposition home or self-care (01) ==
LOC: ANHSURGERY 08:41
PROVIDERS: Anesthesiology; PCP Family Medicine; Visit Provider Urology
DX: E11.65 Type 2 diabetes mellitus with hyperglycemia (principal); I10 Essential (primary) hypertension
CPT/HCPCS: 36415; 80048; 93005

== ENCOUNTER 2024-07-13 01:15 | Day surgery (SDC) | payer MEDICARE, SELFPAY ==
--- NOTE | 2024-06-30 07:16 | P.HP_ITS ---
History of Present Illness History of Present Illness Consent: Risks, benefits, and alternatives have been discussed and questions answered. Patient agrees to proceed with procedure. Chief complaint: bladder cancer Narrative: Francis Jain is a 73 year old male With a history of multiple recurrent bladder tumors. Recent surveillance cystoscopy showed an area of hyperemia and papillary change in the left lateral wall. He is aware of the risk of today's procedure including, but not limited to, recurrent neoplasm, need for additional therapy. Review of Systems Cardiovascular: Cardiovascular: Denies chest pain, Denies lightheadedness, Denies palpitations and Denies dyspnea Respiratory: Respiratory: Denies dyspnea Gastrointestinal: Gastrointestinal: Denies diarrhea, Denies nausea and Denies vomiting Genitourinary: Genitourinary: Denies hematuria and Denies dysuria Endocrine: Endocrine: Denies palpitations PMF Past Medical History Medical History Community acquired pneumonia of left upper lobe of lung Hyperlipidemia LDL goal <70 Hypertension Migraine with aura and without status migrainosus, not intractable RICHARD (obstructive sleep apnea) PTSD (post-traumatic stress disorder) Sacroiliac joint dysfunction of right side Type 2 diabetes mellitus Family History Family History Grandparent Diabetes mellitus Sibling Diabetes mellitus Mother Family history of malignant neoplasm Social History Social History Smoking packs per day: 1 Smoking cigarettes per day: 20.0 Years smoked: 55 Smoking pack-years: 55.00 Smoking status: Current every day smoker (Trying to quit ) Tobacco type: cigarettes Second hand tobacco smoke exposure: Yes Alcohol intake: current Drinks per week: 2 Alcohol use details: rare Substance use: current Substance use type: marijuana Other substance usage details: 1-2 times per month Last use: 05/15/23 Living arrangements: with family Additional living arrangements comments: Occupation/Education: retired Gender identity (if verbalized by the patient): Male Spiritual care concerns: No Meds Home Medications and Allergies Home Medications Medication Instructions Recorded Confirmed Type blood sugar diagnostic (Blood #10 ea 05/31/19 06/16/24 Rx Glucose Test strips) acetaminophen 500 mg capsule 1,000 mg PO Q6H PRN pain #60 caps 01/15/20 06/16/24 Rx blood sugar diagnostic (OneTouch #100 ea 02/21/20 06/16/24 Rx Ultra Blue Test Strip) magnesium 200 mg tablet 200 mg PO HS 05/21/23 06/16/24 History vitamin B complex 1 cap PO HS 05/21/23 06/16/24 History tadalafil 20 mg tablet (Cialis) 20 mg PO DAILY PRN sexual activity 05/24/23 06/16/24 Rx #10 tabs ezetimibe 10 mg tablet See Rx Instructions .Route 08/23/23 06/16/24 Rx .COMPLEX #90 tabs cholecalciferol (vitamin D3) 50 50 mcg PO DAILY 09/02/23 06/16/24 History mcg (2,000 unit) capsule hydrocodone 5 mg-acetaminophen 325 1 - 2 tablet PO Q6H PRN pain #20 09/16/23 06/16/24 Rx mg tablet tabs atorvastatin 80 mg tablet See Rx Instructions .Route 10/13/23 06/16/24 Rx .COMPLEX #90 tabs metformin 500 mg tablet,extended 1,000 mg PO HS #180 tabs 03/05/24 06/16/24 Rx release 24 hr trazodone 50 mg tablet 50 mg PO QHS PRN insomnia #30 tabs 04/18/24 06/16/24 Rx amlodipine 10 mg tablet 10 mg PO HS #90 tabs 04/19/24 06/16/24 Rx lisinopril 40 mg tablet 40 mg PO QAM #90 tabs 04/19/24 06/16/24 Rx topiramate 50 mg tablet 100 mg PO BID MIGRAINE #180 tabs 05/12/24 06/16/24 Rx glimepiride 2 mg tablet 2 mg PO QAM #90 tabs 06/04/24 06/16/24 Rx tramadol 50 mg tablet 50 mg PO Q6H PRN pain #30 tabs 06/15/24 06/16/24 Rx Allergies Allergy/AdvReac Type Severity Reaction Status Date / Time niacin Allergy Unknown Rash Verified 05/01/24 09:58 Exam Const: General: no acute distress Resp: Effort & Inspection: normal respiratory effort GI: Inspection: non-distended GI Palp: No abdominal tenderness and No Guarding due to palpation present (GI) Auscultation: normal bowel sounds Assessment and Plan Assessment and plan (1) Malignant neoplasm of overlapping sites of bladder: Code(s): C67.8 - Malignant neoplasm of overlapping sites of bladder Status: Acute Assessment and Plan: * Cystoscopy, bladder biopsy, TURBT * Gemcitabine installation
[2024-07-04 10:19] VITALS: BMI 27.1
--- NOTE | 2024-07-04 10:48 | PC.NURSE ---
Report to the Outpatient Waiting Room, entrance under the green pavilion located off [facility], at time ___6:00AM____ on date ___07/13/24____. Planned Procedure Time: ___7:30AM .? Time changes happen often and if your time is changed the preop area will call you the afternoon before. - You and your visitor will be asked to self-screen and do not enter if you have any COVID symptoms. Please call surgeon if you need to reschedule. - A mask is optional within the hospital at this time. Patients may have clear liquids (water, carbonated beverages, clear teas, apple juice) until 3 hours prior to surgery with a maximum of 20 ounces. - No food from midnight until time of surgery and no smoking. This includes no chewing gum, candy or mints. Take only the following medications with a SIP of water on the morning of surgery: HYDROCODONE OR TRAMADOL NEEDED FOR PAIN DO NOT STOP ANY OF YOUR OTHER PRESCRIPTION MEDICATIONS PRIOR TO SURGERY EXCEPT THE FOLLOWING Medications to discontinue per physician HOLD ALL VITAMINS/SUPPLEMENTS 3 DAYS PRE-OP PER ANESTHESIA Date to take last dose 07/09/24 Please no make-up, nail bulgarian, hairspray, perfume, deodorant, or body powder the day of surgery.? No jewelry (including any body piercings) or valuables the day of surgery, leave them at home.? Please take a shower or bath the night before, or the morning of, surgery with an antibacterial soap.? Wear comfortable, loose fitting clothing.? - Jewelry must be removed prior to entering the operating room.? Rings and piercings that are not removed may be cut off. - The hospital will not accept responsibility for valuables.? - Please leave all valuables, including medications, at home the day of surgery. If you are going home after surgery, a licensed van cdl driver must drive you home.? - NO public transportation without another adult if you receive anesthesia. - We recommend that an adult stay with you for 24 hours following discharge. - We also recommend that you do not drive, make important decision, drink alcoholic beverages, or take any drugs that were not prescribed by your health care provider for at least 24 hours after your discharge time. Follow any additional instructions given to you from your surgeon. Telephone instructions given to ____PATIENT and asked if any additional questions and then verbalized understanding. Patient advised to call surgeon office or pre surgery nurse liaison [phone] if any additional questions.
[2024-07-13] VITALS (10 sets, daily range): BP systolic 85–143; BP diastolic 58–91; PULSE 65–82; RESP 12–24; TEMP 36.2–36.3; O2SAT 92–97
--- NOTE | 2024-07-13 06:05 | WPDHPUPDATE1 ---
History and Physical Update Update Date/Time: 07/13/24 06:05 History and Physical has been reviewed, including an updated exam of the patient. There are NO changes in the patient's condition. Risks, benefits, and alternatives have been discussed and questions answered. Patient agrees to proceed with procedure.
[2024-07-13 06:20] LABS: Glucose Point of Care 145 mg/dl (65-105)
--- NOTE | 2024-07-13 07:24 | P.PNAN_ITS ---
Anes - Initial Pre Proc Eval Procedure: Operation Date: 07/13/24 07:30 Proposed Procedures p Cystoscopy Bladder Biopsy - August Bryan MD s Transurethral Resection of Bladder Tumor with Gemcitabine Instillation - August Bryan MD Date/Time: 07/13/24 07:24 Surgeon: August Bryan MD Pre Op Diagnosis: bladder cancer Patient Data Age: 73 Gender: M Height: 1.78 m Weight: 87.1 kg Last Vital Signs Temp 36.3 C L 07/13/24 06:15 Pulse 68 07/13/24 06:15 Resp 18 07/13/24 06:15 BP 130/68 07/13/24 06:15 Pulse Ox 97 07/13/24 06:15 O2 Del Method Room Air 07/13/24 06:15 Allergies Allergy/AdvReac Type Severity Reaction Status Date / Time niacin Allergy Unknown Rash Verified 07/13/24 06:21 Home Medications ?Medication ?Instructions ?Recorded ?Confirmed ?Type blood sugar diagnostic (Blood #10 ea 05/31/19 07/04/24 Rx Glucose Test strips) acetaminophen 500 mg capsule 1,000 mg (2 x 500 mg) PO Q6H PRN 01/15/20 07/04/24 Rx pain #60 caps blood sugar diagnostic (OneTouch #100 ea 02/21/20 07/04/24 Rx Ultra Blue Test Strip) magnesium 200 mg tablet 200 mg PO HS 05/21/23 07/13/24 History vitamin B complex 1 cap PO HS 05/21/23 07/13/24 History tadalafil 20 mg tablet (Cialis) 20 mg PO DAILY PRN sexual activity 05/24/23 07/04/24 Rx #10 tabs ezetimibe 10 mg tablet See Rx Instructions .Route 08/23/23 07/13/24 Rx .COMPLEX #90 tabs cholecalciferol (vitamin D3) 50 50 mcg PO DAILY 09/02/23 07/13/24 History mcg (2,000 unit) capsule hydrocodone 5 mg-acetaminophen 325 1 - 2 tablet PO Q6H PRN pain #20 09/16/23 07/04/24 Rx mg tablet tabs metformin 500 mg tablet,extended 1,000 mg (2 x 500 mg) PO HS #180 03/05/24 07/13/24 Rx release 24 hr tabs trazodone 50 mg tablet 50 mg PO QHS PRN insomnia #30 tabs 04/18/24 07/04/24 Rx amlodipine 10 mg tablet 10 mg PO HS #90 tabs 04/19/24 07/13/24 Rx lisinopril 40 mg tablet 40 mg PO QAM #90 tabs 04/19/24 07/13/24 Rx topiramate 50 mg tablet 100 mg (2 x 50 mg) PO BID MIGRAINE 05/12/24 07/13/24 Rx #180 tabs glimepiride 2 mg tablet 2 mg PO QAM #90 tabs 06/04/24 07/13/24 Rx tramadol 50 mg tablet 50 mg PO Q6H PRN pain #30 tabs 06/15/24 07/13/24 Rx atorvastatin 80 mg tablet See Rx Instructions .Route 07/02/24 07/13/24 Rx .COMPLEX #90 tabs Laboratory Tests 07/13/24 06:14 POC Capillary Glucose 145 H mg/dl (65-105) Patient hx anesthesia problems: none Family hx anesthesia problems: none Results Review: All pre-operative results and documents have been reviewed as part of the pre- operative evaluation. [facility] Past Medical History Medical History Community acquired pneumonia of left upper lobe of lung Migraine with aura and without status migrainosus, not intractable Sacroiliac joint dysfunction of right side RICHARD (obstructive sleep apnea) PTSD (post-traumatic stress disorder) Hyperlipidemia LDL goal <70 Type 2 diabetes mellitus Hypertension Family History Family History Grandparent Diabetes mellitus Sibling Diabetes mellitus Mother Family history of malignant neoplasm Social History Social History Smoking packs per day: 1 Smoking cigarettes per day: 20.0 Years smoked: 40 Smoking pack-years: 40.00 Smoking status: Current every day smoker Tobacco type: cigarettes Second hand tobacco smoke exposure: Yes Alcohol intake: current Drinks per week: 2 Alcohol use details: rare Substance use: current Substance use type: marijuana Other substance usage details: 1-2 times per month Last use: 05/15/23 Living arrangements: with family Additional living arrangements comments: Occupation/Education: retired Gender identity (if verbalized by the patient): Male Spiritual care concerns: No Anes - Eval Final PreProcedure Day of Procedure 07/13/24 07:24 Patient weight: overweight Heart: regular rate and rhythm Lungs: decreased breath sounds Airway: Mallampati scale class II Neurological: alert and oriented Last oral intake: >/= 8 hours ASA classification: III Emergent: no Anesthetic plan: proceed Anesthesia type and monitoring: general LMA and standard monitoring Results Review: All pre-operative results and documents have been reviewed as part of the pre- operative evaluation. Informed Consent: The patient's anesthetic plan and its attendant risks and benefits were discussed with the patient/family/POA. Questions were solicited and answers provided to the satisfaction of the patient/family/POA.
[2024-07-13] MEDS: ceFAZolin 2 GM/D5W 50 ML 2 GM/50 ML BAG IVPB (07:29)
[2024-07-13] MEDS: LACTATED RINGERS 1,000 ML 30 ML IV CONT (07:30)
[2024-07-13] MEDS: LIDOCAINE 2% GEL UROJET 10 ML PKG MUCOUS MEM (07:47)
--- NOTE | 2024-07-13 08:00 | W.PM.PROC2 ---
Procedure Note - Detailed Date of Procedure 07/13/24 Pre-op Diagnosis Recurrent bladder cancer Post-op Diagnosis Same Procedure Performed TURBT (small, 2cm), bladder biopsy Surgeon August Bryan MD Anesthesia General Description of Procedure Patient brought the operative suite was prepped and draped in routine sterile fashion while in dorsal lithotomy position after the uneventful induction of a general anesthetic. Cystoscopy was first undertaken with a 21 F rigid cystoscope. There was no urethral stricture. He has moderate lateral lobe hyperplasia of the prostate without a median lobe. Bladder mucosa shows 1 area in the left posterior lateral bladder wall of hyperemia and slight papillary change. That site is resected with a 24 F resectoscope loop. There were multiple patchy areas of hyperemia scattered throughout the posterior wall elsewhere. Cold cup biopsies were obtained from the sites. Base and periphery of all the hyperemic and biopsied sites are cauterized with a roller ball. Resectoscope is removed and an 18 F catheter was placed to drainage. Drains No Pathology Yes Complications No immediate complications
--- NOTE | 2024-07-13 08:03 | W.PM.PROC2 ---
Procedure Note - Detailed Date of Procedure 07/13/24 Pre-op Diagnosis Recurrent bladder cancer Post-op Diagnosis Same Procedure Performed Gemcitabine installation Surgeon August Bryan MD Anesthesia General Description of Procedure With the patient in the supine position, a 16F Peters catheter is placed using sterile technique. Using a protective facemask, gown and double layer of gloves Gemcitabine 2gm in 100cc saline is administered through the catheter/into the bladder. The catheter is then plugged. Patient was instructed to lie supine x20min, then to roll both the left and right x20 min. each. Total dwell time will be 60 min., after which the bladder will be drained and catheter removed.
[2024-07-13 08:14] LABS: Glucose Point of Care 133 mg/dl (65-105)
[2024-07-13] MEDS: fentaNYL CITRATE INJ (*CRX) 100 MCG/2 ML VIAL 25 MCG IV PUSH ×4 (08:16→08:32)
[2024-07-13] MEDS: SODIUM CHLORIDE 0.9% IV 23.7 ML, GEMCITABINE HCL 1,000 MG BLADDER ×2 (08:22→08:23)
== END 2024-07-13 10:32 | disposition home or self-care (01) ==
PROVIDERS: PCP Family Medicine; Visit Provider Urology
PROC: 0TBB8ZX Excision of Bladder, Via Natural or Artificial Opening Endoscopic, Diagnostic (ICD-10-PCS; CPT 52204; principal; 2024-07-13 07:30)
PROC: 0TBB8ZZ Excision of Bladder, Via Natural or Artificial Opening Endoscopic (ICD-10-PCS; CPT 52235; 2024-07-13 07:30)
DX: N30.20 Other chronic cystitis without hematuria (principal); Z79.84 Long term (current) use of oral hypoglycemic drugs; F17.210 Nicotine dependence, cigarettes, uncomplicated; F12.90 Cannabis use, unspecified, uncomplicated; Z85.51 Personal history of malignant neoplasm of bladder
CPT/HCPCS: 52235; 51720; 82948; 88305; J0690; J2405; J2704; J3010; J7120; J9201

== ENCOUNTER 2025-01-16 01:12 | Day surgery (SDC) | payer MEDICARE, SELFPAY ==
[2025-01-02 11:56] VITALS: BMI 27.2
[2025-01-16 08:34] VITALS: BP 130/67; PULSE 55; RESP 16; TEMP 36.2; O2SAT 97; BMI 26.5
[2025-01-16] MEDS: LACTATED RINGERS 1,000 ML 150 ML IV CONT (08:52)
[2025-01-16 08:57] LABS: Glucose Point of Care 117 mg/dl (65-105)
[2025-01-16] MEDS: SIMETHICONE ORAL SUSPENSION 20 MG/0.3 ML 30 ML BOTTLE 1.8 ML PO (08:57)
--- NOTE | 2025-01-16 09:04 | P.PNAN_ITS ---
Anes - Initial Pre Proc Eval Procedure: Operation Date: 01/16/25 09:30 Proposed Procedures p Esophagogastroduodenoscopy & Colonoscopy - Jules Campbell MD Date/Time: 01/16/25 09:04 Surgeon: Jules Campbell MD Pre Op Diagnosis: Polyp of colon, Left upper quadrant pain Patient Data Age: 74 Gender: M Height: 1.78 m Weight: 83.8 kg Last Vital Signs Temp 36.2 C L 01/16/25 08:34 Pulse 55 L 01/16/25 08:34 Resp 16 01/16/25 08:34 BP 130/67 01/16/25 08:34 Pulse Ox 97 01/16/25 08:34 O2 Del Method Room Air 01/16/25 08:34 Allergies Allergy/AdvReac Type Severity Reaction Status Date / Time niacin Allergy Unknown Rash Verified 01/16/25 08:40 Home Medications ?Medication ?Instructions ?Recorded ?Confirmed ?Type blood sugar diagnostic (Blood #10 ea 05/31/19 01/02/25 Rx Glucose Test strips) acetaminophen 500 mg capsule 1,000 mg (2 x 500 mg) PO Q6H PRN 01/15/20 01/02/25 Rx pain #60 caps blood sugar diagnostic (OneTouch #100 ea 02/21/20 01/02/25 Rx Ultra Blue Test Strip) magnesium 200 mg tablet 200 mg PO HS 05/21/23 01/16/25 History vitamin B complex 1 cap PO HS 05/21/23 01/16/25 History tadalafil 20 mg tablet (Cialis) 20 mg PO DAILY PRN sexual activity 05/24/23 01/02/25 Rx #10 tabs cholecalciferol (vitamin D3) 50 50 mcg PO DAILY 09/02/23 01/16/25 History mcg (2,000 unit) capsule hydrocodone 5 mg-acetaminophen 325 1 - 2 tablet PO Q6H PRN pain #20 09/16/23 01/02/25 Rx mg tablet tabs lisinopril 40 mg tablet 40 mg PO QAM #90 tabs 04/19/24 01/16/25 Rx glimepiride 2 mg tablet 2 mg PO QAM #90 tabs 06/04/24 01/16/25 Rx tramadol 50 mg tablet 50 mg PO Q6H PRN pain #30 tabs 06/15/24 01/02/25 Rx atorvastatin 80 mg tablet See Rx Instructions .Route 07/02/24 01/16/25 Rx .COMPLEX #90 tabs hydrocodone 5 mg-acetaminophen 325 1 - 2 tablet PO Q6H PRN pain #20 07/13/24 01/02/25 Rx mg tablet tabs ezetimibe 10 mg tablet See Rx Instructions .Route 08/09/24 01/16/25 Rx .COMPLEX #90 tabs metformin 500 mg tablet,extended 1,000 mg (2 x 500 mg) PO HS #180 08/29/24 01/16/25 Rx release 24 hr tabs CPAP 12 cm H2O #1 ea 08/30/24 01/02/25 Rx amlodipine 10 mg tablet 10 mg PO HS #90 tabs 10/11/24 01/16/25 Rx trazodone 50 mg tablet 50 mg PO QHS PRN insomnia #30 tabs 10/25/24 01/02/25 Rx omeprazole 40 mg capsule,delayed 40 mg PO DAILY #30 caps 11/28/24 01/16/25 Rx release topiramate 50 mg tablet 100 mg (2 x 50 mg) PO BID MIGRAINE 12/07/24 01/16/25 Rx #180 tabs Laboratory Tests 01/16/25 08:48 POC Capillary Glucose 117 H mg/dl (65-105) Patient hx anesthesia problems: none Family hx anesthesia problems: none Results Review: All pre-operative results and documents have been reviewed as part of the pre- operative evaluation. [facility] Past Medical History Medical History Community acquired pneumonia of left upper lobe of lung Migraine with aura and without status migrainosus, not intractable Sacroiliac joint dysfunction of right side RICHARD (obstructive sleep apnea) PTSD (post-traumatic stress disorder) Hyperlipidemia LDL goal <70 Type 2 diabetes mellitus Hypertension Family History Family History Grandparent Diabetes mellitus Sibling Diabetes mellitus Mother Family history of malignant neoplasm Social History Social History Smoking packs per day: 1 Smoking cigarettes per day: 20.0 Years smoked: 40 Smoking pack-years: 40.00 Smoking status: Current every day smoker Tobacco type: cigarettes Second hand tobacco smoke exposure: Yes Alcohol intake: current Drinks per week: 2 Alcohol use details: rare Substance use: current Substance use type: marijuana Other substance usage details: 1-2 times per month Last use: 1-2 x month Living arrangements: with family Additional living arrangements comments: Occupation/Education: retired Gender identity (if verbalized by the patient): Male Spiritual care concerns: No Anes - Eval Final PreProcedure Day of Procedure 01/16/25 09:04 Patient weight: overweight Heart: regular rate and rhythm Lungs: decreased breath sounds Airway: Mallampati scale class II Neurological: alert and oriented Last oral intake: >/= 8 hours ASA classification: III Emergent: no Anesthetic plan: proceed Anesthesia type and monitoring: general GIVS and standard monitoring Results Review: All pre-operative results and documents have been reviewed as part of the pre- operative evaluation. Informed Consent: The patient's anesthetic plan and its attendant risks and benefits were discussed with the patient/family/POA. Questions were solicited and answers provided to the satisfaction of the patient/family/POA.
--- NOTE | 2025-01-16 09:33 | PM.IMHP ---
H&P: HPI History of Present Illness Date/Time: 01/16/25 09:33 Chief Complaint: History of colon polyps- left upper quadrant pain. Narrative: The patient sustained a fall hurting his left rib cage. Since then he has been experiencing intermittently sharp ivnv-wr-[id number] pain, which feels like a pinched nerve. He is referred for EGD. In addition, the patient has a history of colon polyps and his last colonoscopy was over 5 years ago. He has refer for colonoscopy. Review of Systems Review of Systems: All systems reviewed & are unremarkable except as noted in HPI and below PMFSH Past Medical History Medical History Community acquired pneumonia of left upper lobe of lung Migraine with aura and without status migrainosus, not intractable Sacroiliac joint dysfunction of right side RICHARD (obstructive sleep apnea) PTSD (post-traumatic stress disorder) Hyperlipidemia LDL goal <70 Type 2 diabetes mellitus Hypertension Family History Family History Grandparent Diabetes mellitus Sibling Diabetes mellitus Mother Family history of malignant neoplasm Social History Social History Smoking packs per day: 1 Smoking cigarettes per day: 20.0 Years smoked: 40 Smoking pack-years: 40.00 Smoking status: Current every day smoker Tobacco type: cigarettes Second hand tobacco smoke exposure: Yes Alcohol intake: current Drinks per week: 2 Alcohol use details: rare Substance use: current Substance use type: marijuana Other substance usage details: 1-2 times per month Last use: 1-2 x month Living arrangements: with family Additional living arrangements comments: Occupation/Education: retired Gender identity (if verbalized by the patient): Male Spiritual care concerns: No Meds Home Medications and Allergies Home Medications ?Medication ?Instructions ?Recorded ?Confirmed ?Type blood sugar diagnostic (Blood #10 ea 05/31/19 01/02/25 Rx Glucose Test strips) acetaminophen 500 mg capsule 1,000 mg (2 x 500 mg) PO Q6H PRN 01/15/20 01/02/25 Rx pain #60 caps blood sugar diagnostic (OneTouch #100 ea 02/21/20 01/02/25 Rx Ultra Blue Test Strip) magnesium 200 mg tablet 200 mg PO HS 05/21/23 01/16/25 History vitamin B complex 1 cap PO HS 05/21/23 01/16/25 History tadalafil 20 mg tablet (Cialis) 20 mg PO DAILY PRN sexual activity 05/24/23 01/02/25 Rx #10 tabs cholecalciferol (vitamin D3) 50 50 mcg PO DAILY 09/02/23 01/16/25 History mcg (2,000 unit) capsule hydrocodone 5 mg-acetaminophen 325 1 - 2 tablet PO Q6H PRN pain #20 09/16/23 01/02/25 Rx mg tablet tabs lisinopril 40 mg tablet 40 mg PO QAM #90 tabs 04/19/24 01/16/25 Rx glimepiride 2 mg tablet 2 mg PO QAM #90 tabs 06/04/24 01/16/25 Rx tramadol 50 mg tablet 50 mg PO Q6H PRN pain #30 tabs 06/15/24 01/02/25 Rx atorvastatin 80 mg tablet See Rx Instructions .Route 07/02/24 01/16/25 Rx .COMPLEX #90 tabs hydrocodone 5 mg-acetaminophen 325 1 - 2 tablet PO Q6H PRN pain #20 07/13/24 01/02/25 Rx mg tablet tabs ezetimibe 10 mg tablet See Rx Instructions .Route 08/09/24 01/16/25 Rx .COMPLEX #90 tabs metformin 500 mg tablet,extended 1,000 mg (2 x 500 mg) PO HS #180 08/29/24 01/16/25 Rx release 24 hr tabs CPAP 12 cm H2O #1 ea 08/30/24 01/02/25 Rx amlodipine 10 mg tablet 10 mg PO HS #90 tabs 10/11/24 01/16/25 Rx trazodone 50 mg tablet 50 mg PO QHS PRN insomnia #30 tabs 10/25/24 01/02/25 Rx omeprazole 40 mg capsule,delayed 40 mg PO DAILY #30 caps 11/28/24 01/16/25 Rx release topiramate 50 mg tablet 100 mg (2 x 50 mg) PO BID MIGRAINE 12/07/24 01/16/25 Rx #180 tabs Allergies Allergy/AdvReac Type Severity Reaction Status Date / Time niacin Allergy Unknown Rash Verified 01/16/25 08:40 Vital Signs Vital Signs - 24 hr 01/16/25 08:34 Temperature 97.2 F L Pulse Rate 55 L Respiratory Rate 16 Blood Pressure 130/67 Pulse Oximetry 97 Oxygen Delivery Room Air Exam Const: General: cooperative and healthy appearing Resp: Effort & Inspection: normal respiratory effort and able to speak in complete sentences Auscultation: clear to auscultation bilaterally Cardio: Rate: regular rate Rhythm: regular rhythm GI: Inspection: normal to inspection GI Palp: No No hepatosplenomegaly present Auscultation: normal bowel sounds Rectal Exam: deferred Skin: General skin exam: normal color Psych: Appearance: grossly normal Mental Status: mental status grossly normal Assessment and Plan Assessment and plan (1) Colon cancer screening: Code(s): Z12.11 - Encounter for screening for malignant neoplasm of colon Status: Acute Assessment and Plan: The patient is deemed a good candidate for the procedures. Consent signed. Will proceed. (2) Left upper quadrant pain: Code(s): R10.12 - Left upper quadrant pain Status: Acute
--- NOTE | 2025-01-16 09:58 | SUR.OPER ---
EGD end time: 951, Colonoscopy start time 956
[2025-01-16 10:15] VITALS: BP 127/68; PULSE 57; RESP 20; O2SAT 96
--- NOTE | 2025-01-16 10:15 | S_PTH ---
PATIENT: Francis Jain LOC: [facility] #:[id number] AGE/SX: 74/M ROOM: RE01/16/[address]: Jules Campbell MD : [id number] BED: DIS: 01/16/2025 SPEC #: [id number] RECD: 01/16/25 10:55 STATUS: ADELINA REQ #: [id number] MARK: 01/16/25 10:[address]: Jules Campbell DEPT: [facility] Surgical RECD BY: Brianna Cardona ENTERED: 01/16/25 10:55 SP TYPE: Surgical OTHR DR: Radha DevlinMD Tissues: A - Colon Polypectomy B - Gastric Biopsy C - Gastric Biopsy Procedures: Hematoxylin and Eosin Stain Gross and Microscopic Level 4 H.Pylori
[2025-01-16 10:25] VITALS: BP 124/69; PULSE 55; RESP 21; O2SAT 95
[2025-01-16 10:35] VITALS: BP 141/68; PULSE 56; RESP 22; O2SAT 96
[2025-01-16 10:36] LABS: Glucose Point of Care 97 mg/dl (65-105)
== END 2025-01-16 10:44 | disposition home or self-care (01) ==
PROVIDERS: PCP Family Medicine; Referring Provider Nurse Practitioner Family; Visit Provider Internal Medicine Gastroenterology
PROC: 0DJ08ZZ Inspection of Upper Intestinal Tract, Via Natural or Artificial Opening Endoscopic (ICD-10-PCS; CPT 45378; principal; 2025-01-16 09:30)
DX: Z12.11 Encounter for screening for malignant neoplasm of colon (principal); D12.2 Benign neoplasm of ascending colon; K57.30 Diverticulosis of large intestine without perforation or abscess without bleeding; K29.40 Chronic atrophic gastritis without bleeding; K31.A12 Gastric intestinal metaplasia without dysplasia, involving the body (corpus); E78.5 Hyperlipidemia, unspecified; I10 Essential (primary) hypertension; E11.9 Type 2 diabetes mellitus without complications; F43.10 Post-traumatic stress disorder, unspecified; G47.33 Obstructive sleep apnea (adult) (pediatric); F17.210 Nicotine dependence, cigarettes, uncomplicated; Z79.891 Long term (current) use of opiate analgesic; Z79.84 Long term (current) use of oral hypoglycemic drugs; Z99.89 Dependence on other enabling machines and devices; Z80.9 Family history of malignant neoplasm, unspecified
CPT/HCPCS: 43239; 45385; 82948; 88305; 88342; J2003; J2704; J7120

== ENCOUNTER 2025-05-28 12:51 | Outpatient (CLI) | payer MEDICARE, SELFPAY ==
--- NOTE | ~2025-05-28 | XR_ITS ---
XR shoulder LT min 2V 05/28/2025 13:09 Indication: Left shoulder pain Procedure: 4 views left shoulder Comparison: 06/08/2024 Findings: Mild polyarticular osteoarthritis. No fracture or traumatic malalignment. No soft tissue abnormality. No foreign bodies. There is left apical pleural thickening/scarring. Impression: 1: Mild polyarticular osteoarthritis. Reviewed, dictated and finalized at location O. ATTENDANT Impression: 1: Mild polyarticular osteoarthritis.
--- OUTSIDE RECORDS SUMMARY | 2025-05-28 13:58 | XMS_ITS | Clinical Summary ---
Author Organization [facility] Address [address] [address] Phone Care Team Providers Care Medical Appointment Clerk Name Role Phone Yas Marques MD Primary [...] TabletIndication s:Non-insulin dependent type 2 diabetes mellitus Take 1 Tab by mouth 2 times [...] Date Smoking Tobacco: Every Day Cigarettes 1 40 Started: 06/12/1985 Smokeless Tobacco: Never Tobacco Cessation:Ready [...] Job Start Date Job End Date Retired [employer] Not on file Not on file Not on file works part- time [employer] Not on file Not on file Not on file Last Filed Vital Signs Vital Sign Reading Time Taken Comments Blood Pressure 132/86 04/17/2021 1:45 PM CDT Pulse 68 04/17/2021 1:45 PM CDT Temperature 36.4 C (97.5 F) 04/17/2021 1:45 PM CDT Respiratory Rate 16 04/17/2021 1:45 PM CDT Oxygen Saturation 95% 04/17/2021 1:45 PM CDT Inhaled Oxygen Concentration - - Weight 95.3 kg (210 lb) 04/17/2021 1:45 PM CDT Height 177.8 cm (5' 10) 02/25/2018 1:00 PM CDT Body Mass Index 30.13 02/25/2018 1:00 PM CDT Plan of Treatment Health Maintenance Due Date Last Done Comments Diabetes: Eye Exam 1950 Diabetes: Foot Exam 1950 Hepatitis C Virus (HCV) Screening 1950 TdaP Immunization 1950 Cologuard 1994 Immunochemical Fecal Occult Blood 1994 Zoster Immunization (1 of 2) 09/29/1999 Medicare Initial AWV G0438 09/24/2015 Diabetes: Hemoglobin A1c 10/21/2016 04/23/2016 Diabetes: Nephropathy Screening 03/16/2017 03/16/2016 Respiratory Syncytial Virus (RSV) Immunization (Adult) (1 - 1-dose 75+ series) 2024 Influenza Immunization (#1) 2025 10/0 02/2020, 05/03/2019, 04/23/2016, Additional history exists SARS-COV-2 Immunization ( season) 2025 06/10/2021, 09/18/2020, 08/28/2020 Colonoscopy 03/03/2028 03/03/2018, 08/01/2008 Colorectal Cancer Screening 03/03/2028 Pneumococcal Immunization (50+ years) Completed 11/23/2016, 07/02/2015 Pneumococcal Immunization Combined Discontinued 11/23/2016, 07/02/2015 Hepatitis B Immunization Aged Out No longer eligible based on patient's age to complete this topic Human Papillomavirus (HPV) Immunization Aged Out No longer eligible based [...] - 6.4 % 04/23/2016 11:07 AM CDT [facility] Est Average Glucose 180.0 mg/dL 04/23/2016 11:07 AM CDT [facility] Blood specimen (specimen) Venipuncture / Unknown 04/23/2016 8:20 AM CDT 04/23/2016 8:23 AM CDT Narrative [facility] - 04/23/2016 11:07 AM CDT HEMOGLOBIN A1C: DIABETIC PATIENTS: WELL-CONTROLLED: 6.2 - 7.0 INTERMEDIATE WELL-CONTROLLED: 7.0 - 9.0 POORLY-CONTROLLED: >9.0 us Rigo Maxwell DO CHEMISTRY ORDERABLES Final Resul t [facility] [address] [place] [address] * (ABNORMAL) CMP (Comprehensive Metabolic Panel) (03/16/2016 7:36 PM CDT) SODIUM 140 131 - 143 mmol/L 03/16/2016 8:06 PM CDT [facility] POTASSIUM 3.5 3.5 - 5.1 mmol/L 03/16/2016 8:06 PM CDT [facility] CHLORIDE 105 100 - 110 mmol/L 03/16/2016 8:06 PM CDT [facility] CO2, VENOUS 23 22 - 32 mmol/L 03/16/2016 8:06 PM CDT [facility] ANION GAP 15.5 8.0 - 20.0 mmol/L 03/16/2016 8:06 PM CDT [facility] GLUCOSE 198(H) 70 - 105 mg/dL 03/16/2016 8:06 PM CDT [facility] BUN 21 10 - 31 mg/dL 03/16/2016 8:06 PM CDT [facility] CREATININE, BLOOD 1.33(H) 0.60 - 1.30 mg/dL 03/16/2016 8:06 PM CDT [facility] BUN/CREATININE RATIO 16 12 - 20 ratio 03/16/2016 8:06 PM CDT [facility] TOTAL PROTEIN 7.9 6.0 - 8.3 g/dL 03/16/2016 8:06 PM CDT [facility] ALBUMIN 4.4 3.5 - 5.2 g/dL 03/16/2016 8:06 PM CDT [facility] A/G RATIO 1.3 1.0 - 2.0 03/16/2016 8:06 PM CDT [facility] CALCIUM 9.8 8.9 - 10.3 mg/dL 03/16/2016 8:06 PM CDT [facility] T BILI 0.4 0.3 - 1.2 mg/dL 03/16/2016 8:06 PM CDT [facility] SGOT (AST) 18 1 - 40 U/L 03/16/2016 8:06 PM CDT [facility] SGPT (ALT) 23 1 - 40 U/L 03/16/2016 8:06 PM CDT [facility] ALKALINE PHOSPHATASE 49 40 - 130 U/L 03/16/2016 8:06 PM CDT [facility] GFR, EST. NONAFRICAN 54(L) >=60 03/16/2016 8:06 PM CDT [facility] GFR, EST. >60 >=60 03/16/2016 8:06 PM CDT [facility] Comment: Creatinine Clearance is the preferred criteria for selecting drug dose adjustments in renally impaired patients. The GFR is provided as additional pertinent clinical information. GFR is reported in mL/min/1.73 sq m. Blood specimen (specimen) Venous Catheter (IV) / Unknown 03/16/2016 7:36 PM CDT 03/16/2016 7:43 PM CDT us Elfego Garcia MD CHEMISTRY ORDERABLES Fin al Result [facility] [address] [place] [address] * COLONOSCOPY (08/01/2008) Unknown Provider PROCEDURE/MINOR SURGICAL ORDERA BLES Edited Result - Final from Last 3 Months or Most Recently Relevant to Health Maintenance Insurance MEDICARE [place] Care Teams Medical Appointment Clerk Relationship Specialty Start Date End Date Yas Marques MD [address] [place] [address] PCP - General Family Medicine 02/21/18
--- OUTSIDE RECORDS SUMMARY | 2025-05-28 13:58 | XMS_ITS | Clinical Summary ---
Author Organization [facility] Address [address] [place] [id number] Care Team Providers Care Monument Setter Helper Name Role Phone None, Provider MD Primary [...] 09/29/1967 Zoster Vaccines (1 of 2) 09/29/1999 DTaP, Tdap and Td Vaccines (1 - Tdap) 04/26/2011 04/25/2011 Annual Medicare Wellness Visit 2014 RSV Immunization or 60+ Years (1 - 1-dose 75+ series) 2024 COVID-19 Vaccine (3 - season) 2025 09/18/2020, 08/28/2020 Influenza Adult (#1) 2025 05/02/2020, 05/03/2019, 04/23/2016, Additional history exists Pneumococcal Vaccine: 50+ Years Completed 11/23/2016, 07/02/2015 Hepatitis A Vaccines Aged Out No long er eligible based on patient's age to complete this topic Meningococcal B Vaccine Aged Out No l onger eligible based on patient's age to complete this topic Meningococcal Vaccine Aged Out No enrique antonette eligible based on patient's age to complete this topic RSV Immunizations Under 20 Months Aged Out No longer eligible based on patient's age to complete this topic Insurance [facility] MEDICARE Care Teams Monument Setter Helper Relationship Specialty Start Date End Date None, Provider, PCP - General 05/06/21
--- OUTSIDE RECORDS SUMMARY | 2025-05-28 13:58 | XMS_ITS | Clinical Summary ---
Author Organization [facility] Address [address] [place] [address] Care Team Providers Care Parts Chaser Name Role Phone Radha Devlin MD Primary Care Provider [phone] Allergies Active Allergy Reactions Criticality Noted Date Comments Niacin Other (See Comments) 11/14/2020 Reaction: flushing, Medications multivitamin with iron (DAILY MULTIPLE VITAMINS/IRON ORAL) Take 1 Tablet by mouth. Active Magnesium 250 mg Tablet Take 400 mg by mouth. Active amLODIPine (NORVASC) 10 mg tablet amlodipine 10 mg tablet Active atorvastatin (LIPITOR) 80 mg tablet atorvastatin 80 mg tablet Active ezetimibe (ZETIA) 10 mg tablet ezetimibe 10 mg tablet TAKE 1 TABLET BY MOUTH EVERY DAY 9 Active glimepiride (AMARYL) 2 mg tablet glimepiride 2 mg tablet 9 Active lisinopriL (PRINIVIL) 20 mg tablet lisinopril 20 mg tablet Active metFORMIN (GLUCOPHAGE XR) 500 mg Extended Release 24 hour tablet metformin ER 500 mg tablet,extended release 24 hr 9 Active sildenafiL (VIAGRA) 100 mg tablet sildenafil 100 mg tablet TAKE 1 TABLET BY MOUTH ONCE DAILY NEEDED APPROXIMATELY 1 HOUR BEFORE SEXUAL ACTIVITY 9 Active topiramate (TOPAMAX) 25 mg tablet topiramate 25 mg tablet 9 Active albuterol sulfate 90 mcg/Actuation inhaler 2 Active azithromycin (ZITHROMAX) 250 mg tablet TAKE 2 TABLETS BY MOUTH ON DAY 1, AND THEN TAKE 1 TABLET BY MOUTH ONCE A DAY ON DAY 2 THROUGH DAY 5 2 Active predniSONE (DELTASONE) 10 mg tablet 2 Active pregabalin (LYRICA) 75 mg Capsule Take 75 mg by mouth 2 times daily. 2 Active valACYclovir (VALTREX) 1 gram tablet TAKE 1 TABLET BY MOUTH EVERY 8 HOURS FOR 7 DAYS 2 Active Active Problems Problem Noted Date Diagnosed [...] at Not on file Legal Sex Male 3:56 PM [employer] Gender Identity Not on file Sexual Orientation Not on file Last Filed Vital Signs Vital Sign Reading Time Taken Comments Blood Pressure 96/63 03/08/2023 10:22 AM CDT Pulse 87 03/08/2023 10:18 AM CDT Temperature 36.3 C (97.3 F) 03/08/2023 10:18 AM CDT Respiratory Rate 18 03/08/2023 10:18 AM CDT Oxygen Saturation 98% 03/08/2023 10:18 AM CDT Inhaled Oxygen Concentration - - Weight 92.5 kg (204 lb) 03/08/2023 10:18 AM CDT Height 177.8 cm (5' 10) 03/08/2023 10:18 AM CDT Body Mass Index [...] MONTHS 11/18/20232022, 10/19/2022, 08/21/2021, Additional history exists DIABETES ANNUAL RETINAL EXAM 08/07/2024, 01/07/2023, 09/17/2022, Additional history exists RSV VACCINE (60+ or ) (1 - 1-dose 75+ series) 2024 INFLUENZA VACCINE (#1) 2025 9, 04/23/2016, 05/30/2015, Additional history exists COLORECTAL SCREENING 08/01/2031 08/01/2021, 08/01/2021, 03/03/2018 Colorectal Cancer Screening 08/01/2031 PNEUMOCOCCAL VACCINE 50+ YEARS Completed 11/23/2016 , 07/02/2015 Insurance MEDICARE PART A AND B [facility] Care Teams Parts Chaser Relationship Specialty Start Date End Date Radha Devlin MD [address] [place] [address] PCP - General Family Practice 03/08/23
--- OUTSIDE RECORDS SUMMARY | 2025-05-28 13:58 | XMS_ITS | Encounter Summary ---
Author Organization [facility] Address [address] [place] [address] Care Team Providers Care Inside Phone Sales Name Role Phone Radha Devlin MD Primary Care Provider [phone] Encounter Details Date Type Department Care Team (Late st Contact Info) Description 07/01/2021 Lab Requisition [facility] [address] [place] [address] Prudence Blackburn MD [address] [place] [address] Illness, unspecified Social History Tobacco Use Types Packs/Day Years Used Date Smoking Tobacco: Never Assessed Sex and Gender Information Value Date Recorded Sex Assigned at Not on file Legal Sex Male 6:49 PM CLINICAL 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 Gender Identity Not on file Sexual Orientation Not on file documented as of this encounter Plan of Treatment Not on file documented as of this encounter Procedures Procedure Name Priority Date/Time Associated Diagnosis Comments PATH CONSULT ON REFERRED CASE Routine 06/26/2021 3:01 PM CLINICAL 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 Illness, unspecified documented in this encounter Results * PATH CONSULT ON REFERRED CASE (06/26/2021 3:01 PM CLINICAL 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) Final Diagnosis URINE, VOIDED, THIN PREP, CYTOLOGY (OSC: [id number]; 06/26/2021): - Atypical - Rare atypical urothelial cells in a background of benign reactive urothelial cells and red blood cells 07/03/2021 10:05 AM CLINICAL 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 [facility] at [address] CLINICAL 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 Microscopic Description and Comment The rare atypical urothelial cells have enlarged irregular nuclei, but they do not have hyperchromasia. Their significance is uncertain. 07/03/2021 10:05 AM [facility] Clinical History HEMATURIA 07/03/2021 10:05 AM [facility] Materials Received 1 Prepared slide received from [facility] [id number]. All material will be returned. 07/03/2021 10:05 AM [facility] Disclaimer The performance characteristics of all immunohistochemical and indirect immunofluorescence stains (if any) cited in this report were determined by the Histopathology Laboratory of [facility]. Some of these tests were developed by our own laboratory and have not been cleared or approved by the US Food and Drug Administration. The FDA does not require this test to go through premarket FDA review. These tests are used for clinical purposes. They should not be regarded as investigational or for research. This laboratory is certified under the Clinical Laboratory Improvement Amendments (CLIA) as qualified to perform high complexity clinical laboratory testing. This case has been personally reviewed and interpreted by the attending (teaching) pathologist. 07/03/2021 10:05 AM [facility] Case Report Surgical Pathology Report Case: [id number] Authorizing Provider: Prudence Blackburn MD Collected: 06/26/2021 03:01 PM Ordering Location: [facility] Received: 07/01/2021 03:01 PM Pathologist: Shira Franklin MD Specimen: Slide Consultation 07/03/2021 10:05 AM [facility] Embedded Images 07/03/2021 10:05 AM [facility] Pathology/Cytolo gy SURGICAL PATHOLOGY CONSULTATION AND REPORT ON REFERRED SLIDES PREPARED ELSEWHERE / Unknown 06/26/2021 3:01 PM CLINICAL 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 07/01/2021 3:01 PM CLINICAL 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 us Prudence Blackburn MD LAB - PATHOLOGY/CYTOLOGY ORDERAB LES Final Result [facility] [address] [place], [place] [id number] [place] [address] documented in this encounter Visit Diagnoses Diagnosis Illness, unspecified documented in this encounter Care Teams Inside Phone Sales Relationship Specialty Start Date End Date Radha Devlin MD [address] [place] [address] PCP - General 08/05/21 documented as of this encounter
--- OUTSIDE RECORDS SUMMARY | 2025-05-28 13:58 | XMS_ITS | Clinical Summary ---
Author Organization [facility] Address [address] [facility] [place] [address] Care Team Providers Care Mat Puncher Name Role Phone Radha Devlin MD Primary Care Provider [phone] Source Comments [facility],non-owned Affiliates and Associated Physician Practices is amultiple site organization consisting of ambulatory clinics and hospital sitesin [place], [place], [place] and [place]. This disclosure is being madepursuant to the Care Everywhere program and may not contain all information available regarding this patient. 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 Gender Identity Not on file Sexual Orientation Not on file Plan of Treatment Health Maintenance Due Date Last Done Comments COLOGUARD (AGES 45-75) - COL ON CA SCREENING 1949 COLON MONITORING 1949 COLONOSCOPY - COLON CA SCREENING 1949 CT COLONOGRAPHY - COLON CA SCREENING 1950 Colorectal Cancer Screening 1950 FIT - COLON CA SCREENING 1949 FLEX SIG - COLON CA SCREENING 1949 LIPID TESTING 1950 MEDICARE AWV 12 MONTHS 1950 HEPATITIS C SCREENING 09/24/1967 DTAP/TDAP/TD VACCINES (1 - Tdap) 1968 PNEUMOCOCCAL VACCINE 50+ (1 of 1 - PCV) 09/29/1999 ZOSTER VACCINE (1 of 2) 09/29/1999 DEPRESSION SCREENING 07/26/2024 Respiratory Syncytial Virus (RSV) Vaccine Pt: or over 60 yrs (1 - 1-dose 75+ series) 2024 COVID-19 VACCINE (2023-2 5 season) 2025 INFLUENZA VACCINE (#1) 2025 HEPATITIS B VACCINE Aged Out No longe r eligible based on patient's age to complete this topic HIB VACCINE Aged Out No longer eligi ble based on patient's age to complete this topic HPV VACCINE Aged Out No longer eligi ble based on patient's age to complete this topic MENINGOCOCCAL (Group B) VACC INE SHARED DECISION-MAKING Aged Out No longer eligibl e based on patient's age to complete this topic MENINGOCOCCAL GROUPS A/C/Y/W VACCINE Aged Out No longer eligible b ased on patient's age to complete this topic Insurance MEDICARE MEDICARE [facility] SELF PAY NO INSURANCE Member Subscriber Plan / Payer (Ef fective for All Dates) Name:Francis Noriega Teresa Member ID:Not on file Relation to Subscriber:Not on file Name:FRANCIS NORIEGA Teresa Subscriber ID:Not on file (Home) Address: [address] [place] [address] Payer ID:Not on file Group ID:Not on file Type:Self Pay Address: [place], [place] ANTHEM MEDICARE ANTHEM ANTHEM * Guarantor: FRANCIS NORIEGA Account Type Relation to Patient Date of Phone Billing Address Personal/Family Spouse Care Teams Mat Puncher Relationship Specialty Start Date End Date Radha Devlin MD [address] [place] [address] PCP - General 08/05/21
== END 2025-05-28 12:52 | disposition home or self-care (01) ==
PROVIDERS: PCP Family Medicine Adolescent Medicine
DX: M19.012 Primary osteoarthritis, left shoulder (principal)
CPT/HCPCS: 73030